=== PATIENT | female | born 1990 | race Caucasian/White ===

== ENCOUNTER 2022-10-03 09:15 | Emergency (ER) | payer OTHER, SELFPAY ==
[2022-10-03 09:27] VITALS: BP 123/81; PULSE 87; RESP 18; TEMP 37; O2SAT 99; BMI 25.0
--- NOTE | 2022-10-03 09:42 | ED_ITS ---
HPI - Female Genitourinary General Time Seen by Provider: 09:43 Date Seen: 10/03/22 Chief complaint: Vaginal Bleeding Stated complaint: 6 weeks preg. bleeding Time Seen by Provider: 10/03/22 09:38 Source: patient, family, RN notes reviewed and old records reviewed Mode of arrival: ambulatory Limitations: no limitations History of Present Illness HPI Narrative: Navya is a very pleasant female at approximately 6 weeks with LMP on August 17 who comes to the emergency room with the onset of vaginal bleeding at approximately 0400 hours this morning or 5 hours ago. Patient notes that she had some back pain that awoke her and when she went to the bathroom felt herself bleeding. She does describe this is more than spotting. She has not been lightheaded or had any chest pain or shortness of breath at this point. She now notes that she has cramping in her lower abdomen as well. She has no history of ectopic pregnancies or scarring in the fallopian tubes. She has not had recent fever but does report feeling chilled or cold more than normal lately. Patient did call OBGYN clinic and they directed her to come to the emergency. Related Data Allergies Allergy/AdvReac Type Severity Reaction Status Date / Time Sulfa (Sulfonamide Allergy Unknown Verified 10/03/22 09:27 Antibiotics) Review of Systems Status of ROS: Reports: 10 or more systems reviewed and unremarkable except as noted in History and below Narrative: Denies recent cough cold congestion or exposure to COVID Const: Reports: chills; Denies: fever ENMT: Denies: neck pain Cardio: Denies: chest pain, palpitations, swelling of feet/ankles or lightheadedness GI: Reports: abdominal pain; Denies: nausea, vomiting or diarrhea : Denies: painful urination Musculo: Reports: back pain; Denies: neck pain PFSH PFSH Social History Smoking Status: Never smoker Do you use any of these nicotine containing products: None Second hand tobacco smoke exposure: No How often do you have a drink containing alcohol: monthly or less How many standard drinks containing alcohol do you have on a typical day: 1 or 2 How often do you have six or more drinks on one occasion: Never AUDIT-C Alcohol total score: 1 Non-prescribed substance use: denies use service: No Exam Narrative: Exam Narrative: Alert and oriented. No acute distress. Clearly worried. External ears eyes nose clear. Mentation normal. Heart with regular rate and rhythm. Occasional additional systole ease with no compensatory pause. Suggest a PAC. Lungs are clear bilaterally. Abdomen is soft. There is some tenderness over the lower abdomen. Lower extremities without edema. Moving all extremities. Const: Vital Signs, click to edit/add: Vital Signs - 24 hr 10/03/22 09:27 Temperature 98.6 F Pulse Rate [Pulse Oximeter] 87 Respiratory Rate 18 Blood Pressure [Le ft Upper Arm] 123/81 Pulse Oximetry 99 Oxygen Delivery Me thod Room Air Documenting provider has reviewed patient's vital signs: yes Course Course Hospital Course: At this time will place IV, draw blood to include CBC, basic, TSH, quantitative hCG. Have ordered pelvic ultrasound as well. Reevaluation(s) Reevaluation #1: I have informed Navya and her that hCG is low at 60 for and that the ultrasound only shows a small fluid collection with absence of embryo or yolk sac. I did explain that this could be a very early but based on her LMP she should be at 6 weeks and 5 days and her hCG should be much higher. Vital Signs Vital signs: Initial Vital Signs Temperature 98.6 F 10/03/22 09:27 Temperature Source Temporal Artery Scan 10/03/22 09:27 Pulse Rate 87 10/03/22 09:27 Pulse Rhythm Regular 10/03/22 09:27 Respiratory Rate 18 10/03/22 09:27 Blood Pressure 123/81 10/03/22 09:27 Blood Pressure Mean 95 10/03/22 09:27 Blood Pressure Position Supine 10/03/22 09:27 Pulse Oximetry 99 10/03/22 09:27 Oxygen Delivery Method Room Air 10/03/22 09:27 Vital Signs Temperature 98.6 F 10/03/22 09:27 Pulse Rate 87 10/03/22 09:27 Respiratory Rate 18 10/03/22 09:27 Blood Pressure 123/81 10/03/22 09:27 Pulse Oximetry 99 10/03/22 09:27 Oxygen Delivery Method Room Air 10/03/22 09:27 Temperature 98.6 F 10/03/22 09:27 Pulse Rate 87 10/03/22 09:27 Respiratory Rate 18 10/03/22 09:27 Blood Pressure 123/81 10/03/22 09:27 Pulse Oximetry 99 10/03/22 09:27 Oxygen Delivery Method Room Air 10/03/22 09:27 MDM - Female Genitourinary MDM Narrative Medical decision making narrative: 1. Threatened miscarriage-at this time patient has low hCG as well as ultrasound results that do not indicate yolk sac or embryo. Suspect that this is ongoing miscarriage. Patient's vital signs stable and Rh factor positive. At this time will discharge a Babs to home. Suggested no use of tampons but pads only. Will need to return if she has significant bleeding, shortness of breath, lightheadedness or fever. Vital signs have remained stable with no evidence of hypotension or tachycardia. 2. [id number] with OBGYN clinic next ThursdayOctober [address] Jay Chen return to the ER as needed. Medical Records Attestation: I reviewed the patient's medical records. Lab Data Attestation: I reviewed the patient's lab results. Labs: Lab Results 10/03/22 Range/Units 10:06 WBC 8.77 (4.50-11.00) K/uL RBC 4.44 (4.00-5.20) m/uL Hgb 13.5 (12.0-16.0) gm/dL Hct 39.5 (33.0-51.0) % MCV 89 (80-100) fL MCH 30 (26-34) pg MCHC 34 (32-36) gm/dL RDW Coeff of Ronda 12.1 (11.5-15.5) % Plt Count 264 (140-440) K/uL Neut % (Auto) 69.4 (42.0-72.0) % Lymph % (Auto) 22.6 (20-44) % Sebastian % (Auto) 6.6 (0.0-11.0) % Eos % (Auto) 0.8 (0.0-7.0) % Baso % (Auto) 0.5 (0.0-3.0) % Neut # (Auto) 6.09 (1.7-7.0) K/uL Lymph # (Auto) 1.98 (0.90-2.90) K/uL Sebastian # (Auto) 0.60 (0.00-0.90) K/UL Eos # (Auto) 0.07 (0.00-0.50) K/uL Baso # (Auto) 0.04 (0.00-0.30) K/uL Sodium 138 (135-149) mmol/L Potassium 3.8 (3.6-5.1) mmol/L Chloride 106 (96-114) mmol/L Carbon Dioxide 24 (20-32) mmol/L BUN 13 (5-24) mg/dL Creatinine 0.7 (0.5-1.5) mg/dL Estimated Creat Clear 104.78 Estimated GFR 119 ml/min Glucose 97 (60-115) mg/dL Calcium 9.1 (8.4-10.6) mg/dL TSH 1.550 (0.270-4.200) uIU/mL HCG, Quant 68.85 mIU/mL Blood Type B Positive Imaging Data Pelvic ultrasound: Attestation: I have reviewed the pertinent imaging results. Radiologist's impression: The uterus is retroverted with an endometrial thickness of 14 millimeters. Within the endometrial cavity there is a fluid collection measuring 3 millimeters. Maternal right ovary measures 3.1 x 1.6 x 2.3 centimeters and is unremarkable. Maternal left ovary measures 4.3 x 1.8 x 2.7 centimeters and contains a 2.4 centimeter corpus luteum. IMPRESSION: 1. Small amount of fluid within the endometrial cavity measuring 3 millimeters. An early gestational sac is possible, however no embryo or yolk sac is seen. Correlation with serial quantitative beta HCG and follow-up ultrasound in 7-10 days suggested. 2. Maternal left ovarian corpus luteum measuring 2.4 centimeters. Discharge Plan Discharge Clinical Impression: Vaginal bleeding Patient Disposition: Home, Self-Care Condition: Unchanged Additional Instructions: Follow-up on ThursdayOctober 06 with your OBGYN. Please call today and let them know that you were in the emergency room and I spoke with Dr. Jay Chen's nurse. The phone number is [phone] Return to the emergency room for significant bleeding, shortness of breath, lightheadedness or fever. Follow Up/Referrals: Provider,Not a Local [Primary Care Provider] - Stand Alone Forms: [employer] Info Instructions
--- NOTE | 2022-10-03 09:51 | CRLHL7_ITS ---
For Patients: As a result of the Century Cures Act, medical imaging exams and procedure reports are released immediately into your electronic medical record. You may view this report before your referring provider. If you have questions, please contact your health care provider. INDICATION: , vaginal bleeding and cramping TECHNIQUE: Ultrasound OB pelvis transvaginal. Real-time hwang-scale imaging of the pelvis was performed. COMPARISON: None FINDINGS: The uterus is retroverted with an endometrial thickness of 14 millimeters. Within the endometrial cavity there is a fluid collection measuring 3 millimeters. Maternal right ovary measures 3.1 x 1.6 x 2.3 centimeters and is unremarkable. Maternal left ovary measures 4.3 x 1.8 x 2.7 centimeters and contains a 2.4 centimeter corpus luteum. IMPRESSION: 1. Small amount of fluid within the endometrial cavity measuring 3 millimeters. An early gestational sac is possible, however no embryo or yolk sac is seen. Correlation with serial quantitative beta HCG and follow-up ultrasound in 7-10 days suggested. 2. Maternal left ovarian corpus luteum measuring 2.4 centimeters. Dictated by Mika Garber MD @ 10/03/2022 11:26:28 AM (Electronically Signed)
[2022-10-03 10:14] LABS: Basophils Absolute Auto 0.04 K/uL (0.00-0.30); Basophils Percent Auto 0.5 % (0.0-3.0); Eosinophils Absolute Auto 0.07 K/uL (0.00-0.50); Eosinophils Percent Auto 0.8 % (0.0-7.0); Hematocrit 39.5 % (33.0-51.0); Hemoglobin* 13.5 gm/dL (12.0-16.0); Immature Granulocytes Abs Auto 0.01 K/uL (0.00-0.30); Immature Granulocytes Pct Auto 0.1 %; Lymphocytes Absolute Auto 1.98 K/uL (0.90-2.90); Lymphocytes Percent Auto 22.6 % (20-44); Mean Corpuscular HGB Conc 34 gm/dL (32-36); Mean Corpuscular Hemoglobin 30 pg (26-34); Mean Corpuscular Volume 89 fL (80-100); Monocytes Percent Auto 6.6 % (0.0-11.0); Neutrophils Absolute Auto 6.09 K/uL (1.7-7.0); Neutrophils Percent Auto 69.4 % (42.0-72.0); Platelet Count* 264 K/uL (140-440); RDW Coefficient of Variation % 12.1 % (11.5-15.5); Red Blood Count 4.44 m/uL (4.00-5.20); White Blood Count* 8.77 K/uL (4.50-11.00)
[2022-10-03 10:16] LABS: Slide Review Reflex No
[2022-10-03 10:29] LABS: Chloride* 106 mmol/L (96-114); Potassium* 3.8 mmol/L (3.6-5.1); Sodium* 138 mmol/L (135-149)
[2022-10-03 10:30] VITALS: BP 130/80; PULSE 78; RESP 16; O2SAT 98
[2022-10-03 10:31] LABS: Creatinine* 0.7 mg/dL (0.5-1.5); Est. Creatinine Clearance* 104.78; Estimated Glomerular Filt Rate 119 ml/min
[2022-10-03 10:32] LABS: Blood Urea Nitrogen* 13 mg/dL (5-24); Calcium* 9.1 mg/dL (8.4-10.6); Carbon Dioxide* 24 mmol/L (20-32); Glucose* 97 mg/dL (60-115)
[2022-10-03 10:49] LABS: HCG Quantitative* 68.85 mIU/mL
[2022-10-03 11:00] VITALS: BP 123/82; PULSE 83; RESP 16; O2SAT 98
[2022-10-03 11:30] VITALS: BP 127/77; PULSE 77; RESP 16; O2SAT 98
[2022-10-03 12:00] VITALS: BP 117/80; PULSE 85; RESP 16; O2SAT 98
== END 2022-10-03 12:09 | disposition home or self-care (01) ==
PROVIDERS: Emergency Provider Family Medicine
DX: N93.9 Abnormal uterine and vaginal bleeding, unspecified (principal)
CPT/HCPCS: 36415; 76817; 80048; 84443; 84702; 85025; 86900; 86901; 99283; 99284

== ENCOUNTER 2022-10-08 13:34 | Outpatient (CLI) | payer OTHER, SELFPAY | END 2022-10-08 13:35 | disposition home or self-care (01) | LOC: NFLDREF 15:22 | PROVIDERS: Visit Provider Advanced Practice Midwife | DX: O20.9 Hemorrhage in early pregnancy, unspecified (principal) | CPT/HCPCS: 84702 ==

== ENCOUNTER 2023-06-09 12:53 | Outpatient (CLI) | payer OTHER, SELFPAY ==
--- NOTE | 2023-06-09 13:00 | US_ITS ---
Patient: ORLANDO PLUMMER Facility:?[facility] Patient ID:?[id number] Site Patient ID:?[id number]. Site :?1990 Study:?US-OB Pelvis TV dating/viability-06/09/2023 2:01:21 PM Ordering Physician:AUREA Final Report: INDICATION: First trimester scan, establish dates. COMPARISON: None. TECHNIQUE: Real-time hwang-scale imaging of the pelvis was performed. FINDINGS: Sonographic imaging demonstrates a single living intrauterine gestation. The embryo demonstrates a regular cardiac rate measuring 180 beats per minute. The embryo`s crown-rump length measurement of 3.0 cm corresponds to a gestational age of 9 weeks 6 days with a sonographic due date of 01/06/2024. There is a normal-appearing yolk sac. There are no gross abnormalities noted within the embryo at this early state of development. The gestational sac has a normal appearance. There is a 3.3 x 1.2 x 3.0 cm perigestational hemorrhage. The amount of fluid within the sac appears appropriate for gestational age. The cervix is closed. The myometrium appears normal. The ovaries are of normal size. Corpus luteal cyst left ovary. There are no suspicious fluid collections noted in the cul-de-sac. IMPRESSION: Gestational age calculated at 9 weeks 6 days with a sonographic due date of 01/06/2024. Fundal subchorionic hemorrhage measuring 3.3 x 1.2 x 3.0 cm. Dictated by Adan Mena MD @ 06/10/2023 7:01:23 AM Signed by:?Adan Mena MD @06/10/2023 7:01:23 AM (Electronic Signature)
== END 2023-06-09 12:54 | disposition home or self-care (01) ==
LOC: US 12:53
PROVIDERS: Visit Provider Physician Assistant
DX: Z34.91 Encounter for supervision of normal pregnancy, unspecified, first trimester (principal); O20.9 Hemorrhage in early pregnancy, unspecified; Z3A.09 9 weeks gestation of pregnancy
CPT/HCPCS: 76817; 86703; 86706; 86803; 86850; 86900; 86901; 87086; 87340

== ENCOUNTER 2023-06-09 15:37 | Outpatient (CLI) | payer OTHER, SELFPAY | END 2023-06-09 15:38 | disposition home or self-care (01) | LOC: NFLDREF 06-19 11:59 | PROVIDERS: Visit Provider Advanced Practice Midwife | DX: Z34.91 Encounter for supervision of normal pregnancy, unspecified, first trimester (principal) | CPT/HCPCS: 86592; 86703; 86704; 86706; 86762; 86787; 86803; 86850; 86900; 86901; 87086; 87340 ==

== ENCOUNTER 2023-08-24 08:04 | Outpatient (CLI) | payer OTHER, SELFPAY ==
--- NOTE | 2023-08-24 08:15 | US_ITS ---
Patient: ORLANDO PLUMMER Facility:?[facility] Patient ID:?[id number] Site Patient ID:?[id number]. Site :?1990 Study:?US-OB Pelvis anatomy-08/24/2023 9:05:20 AM Ordering Physician:Gerda Fox Final Report: OB ULTRASOUND LMP: 04/05/2023. LUCY by LMP: 01/10/2024. GA: 20w, 1d. Fetus: Single. INDICATION: Encounter for supervision of normal . FINDINGS: position: Vertex, breech, multiple positions. Cervix: Visualized. Technique: Transabdominal. Length of closed cervix: 3.0 cm. Placenta/cord: Posterior. Technique: Transabdominal. Placenta tip to internal OS: 5.6cm. Umbilical Cord: 3-vessel cord. Placenta insertion: Marginal (within 2 cm of placenta edge). Amniotic Fluid: 3.4 cm SDP (greater than/equal to: 2- less than 8 cm). SURVEY: No gross anomalies identified. Cerebellum: Yes. Cisterna Magna: Yes. Nuchal Fold: Yes. Lateral Ventricle: Yes. CSP: Yes. Midline Falx: Yes. Choroid Plexus: Yes. Spine: Yes. Stomach: Yes. Abd Cord Insertion: Yes. Urinary Bladder: Yes. Kidneys: Yes. Diaphragm: Yes. Nose/lips: Yes. Orbital view: Yes. Profile: Yes. Upper Extremities: Yes. Lower Extremities: Yes. Hands: Yes. Feet: Yes. Four-Chamber Heart: Yes. LVOT: Yes. RVOT: Yes. 3VV: Yes. 3VTV: Yes. BPD: 4.8 cm. 20 w 3 d, 61%. HC: 17.6 cm. 20 w 1 d, 39%. AC: 16.1 cm. 21 w 1 d, 77%. FL: 3.1 cm. 19 w 4 d, 22%. FL/AC: 19.17%. HC/AC Ratio: 1.10. Heart rate: 157 beats per minute. age by this US: 20 w 5 d. LUCY by this US: 01/06/2024. EFW: 350 g. Weight: 12 oz. Percentile by LUCY: 59%. IMPRESSION: 1. No gross anomalies identified. 2. Marginal cord insertion. 3. age by this US: 20 w 5 d. Salvatore Dennis M.D. Body/Diagnostic Radiologist [email or web address] ANIL/prasad D& Transcribed: 2:01 p.mAmber parham/Dictated by: Salvatore Dennis MD @ 08/24/2023 12:16:00 PM Signed by:Zach Dennis MD @08/24/2023 2:17:49 PM (Electronic Signature)
== END 2023-08-24 08:05 | disposition home or self-care (01) ==
LOC: US 08:05
PROVIDERS: Visit Provider Advanced Practice Midwife
DX: Z34.92 Encounter for supervision of normal pregnancy, unspecified, second trimester (principal); Z3A.20 20 weeks gestation of pregnancy
CPT/HCPCS: 76805

== ENCOUNTER 2023-10-20 12:12 | Outpatient (CLI) | payer OTHER, SELFPAY ==
--- NOTE | 2023-10-20 12:15 | CRLHL7_ITS ---
For Patients: As a result of the Century Cures Act, medical imaging exams and procedure reports are released immediately into your electronic medical record. You may view this report before your referring provider. If you have questions, please contact your health care provider. INDICATION: Third trimester scan, evaluate growth. COMPARISON: 08/24/2023 TECHNIQUE: Real time hwang scale imaging of the fetus was performed. FINDINGS: Sonographic imaging demonstrates a single living intrauterine gestation. Fetus demonstrates a regular cardiac rate of 147 beats per minute. Fetus has a vertex position. The placenta lies posteriorly. Amniotic fluid volume appears normal and there is a single deepest vertical pocket: 5.9 cm. The estimated weight is 1352gm which lies at the 72nd %. On the prior OB ultrasound exam dated 08/24/2023 the estimated weight was at the 59th%. BPD 73rd percentile. HC 62nd percentile. AC 72nd percentile. FL 54th percentile. The HC/AC ratio measures 1.09 range (0.98-1.20). IMPRESSION: Sonographic gestational age 29 weeks 3 days and sonographic due date 01/02/2024. Sonographic age 8 days out of the clinical age. Estimated weight 72nd percentile. Abdominal circumference 72nd percentile. Dictated by Adan Mena MD @ 10/21/2023 11:00:59 AM (Electronically Signed)
== END 2023-10-20 12:13 | disposition home or self-care (01) ==
LOC: US 12:13
PROVIDERS: Visit Provider Obstetrics & Gynecology
DX: Z34.93 Encounter for supervision of normal pregnancy, unspecified, third trimester (principal); Z3A.29 29 weeks gestation of pregnancy
CPT/HCPCS: 76816; 87086

== ENCOUNTER 2023-10-20 14:16 | Outpatient (CLI) | payer OTHER, SELFPAY ==
--- OUTSIDE RECORDS SUMMARY | 2023-10-23 02:46 | XMS_ITS | Clinical Summary ---
Author Organization [employer] [facility] Address [place], [place] [address] Care Team Providers Care Coil Tier Name Role Phone Unavailable Primary Care Provider Unavailabl e Allergies Active Allergy Reactions Criticality Noted Date Comments Sulfa (Sulfonamide Antibiotics) Rash Medications Medication Sig Dispensed Refills Start Date End Date Status loratadine (CLARITIN) 10 mg tabletIndications:Katie oedema, initial encounter Take 1 tablet by mouth once daily. 15 tablet 2 09/22/2014 Active albuterol HFA (PROAIR HFA) 90 mcg/actuation inhalerIndications:Exe rcise induced bronchospasm Inhale 2 Puffs by mouth 4 times daily if needed. 1 Inhaler 0 07/24/2015 Active meclizine (ANTIVERT) 12.5 mg tabletIndications:Vest ibular migraine Take 1 tablet by mouth 3 times daily if needed for Vertigo or Motion Sickness. 15 tablet 0 12/06/2015 Active codeine-guaiFENesin (ROBITUSSIN AC) 10-100 mg/5 mL liquidIndications:Infl uenza-like illness,Cough Take 5-10 mL by mouth every 4 hours if needed for Cough. 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/11/2007 Other acne 10/11/2007 Resolved Problems Problem Noted Date Diagnosed Date Resolved Date Shortness of breath 10/30/2006 10/11/19 08 Other chest pain 10/30/2006 10/11/2007 Dysmenorrhea 10/30/2006 10/11/2007 Excessive or frequent menstruation 10/30/2006 10/11/2007 Immunizations Name Administration Dates Next Due DT (Age < 7 years) 08/09/2003 Hepatitis B (Peds) 03/06/2004,09/29/2003, 004 Human Papilloma Virus Vaccine 06/29/2012, 010,11/06/2008 MMR 08/09/2003,09/06/1992 Meningococcal Vaccine (Menactra) 10/31/2005 Tdap 11/06/2008 Family History Medical History Relation Name Comments Good Health Father Cancer-breast Maternal Grandmother diagno sed 2012 stage 3 Hypertension Maternal Grandmother Good Health Mother Diabetes Other maternal great grandpa Heart Disease Other mom's side --A SD - cousin, great uncle Asthma No Family History Cancer-colon No Family History Hyperlipidemia No Family History Relation Name Status Comments Father Maternal Grandmother Mother Other Social History Tobacco Use Types Packs/Day Years Used Date Smoking Tobacco: Never Smokeless Tobacco: Never Tobacco Cessation:Counseling Given: Yes Alcohol Use Standard Drinks/Week Comments Yes 0 (1 standard drink = 0.6 oz pur e alcohol) occasionally Sex and Gender Information Value Date Recorded Sex Assigned at Not on file Gender Identity Not on file Sexual Orientation Not on file Obstetrics History Last Filed Vital Signs Vital Sign Reading Time Taken Comments Blood Pressure 117/75 03/24/2019 8:25 AM DIRECTOR OF PERIOPERATIVE SERVICES Pulse 80 03/24/2019 8:25 AM DIRECTOR OF PERIOPERATIVE SERVICES Temperature 36.7 ??C (98 ??F) 03/24/2019 8:25 AM DIRECTOR OF PERIOPERATIVE SERVICES Respiratory Rate - - Oxygen Saturation 98% 03/24/2019 8:25 AM DIRECTOR OF PERIOPERATIVE SERVICES Inhaled Oxygen Concentration - - Weight 64.5 kg (142 lb 3.2 oz) 03/24/2019 8:25 A M DIRECTOR OF PERIOPERATIVE SERVICES Height 165.1 cm (5' 5) 03/24/2019 8:25 AM DIRECTOR OF PERIOPERATIVE SERVICES Body Mass Index 23.66 03/24/2019 8:25 AM DIRECTOR OF PERIOPERATIVE SERVICES Plan of Treatment Health Maintenance Due Date Last Done Comments Depression screening for age 12+ 2003 HIV for age 15-65 2006 Hepatitis C screening for ag e 18-79 2009 Tetanus booster 11/06/2018 11/06/2008 BMI (ht and wt on same day) for age 18+ 03/24/2020 03/24/2019, 03/06/2016, 12/06/2015 Pap test for age 21-65 08/01/2022 0, 12/09/2013, 06/29/2012 COVID-19 vaccine series ( season) 2022 Influenza for age 9-49 12/06/2023 Tdap Completed 11/06/2008 Pneumococcal series for age 6-64 Aged Out No longer eligible b ased on patient's age to complete this topic Procedures Procedure Name Priority Date/Time Associated Diagnosis Comments CAM SPECIALIST THIN PREP PAP SCREEN IMAGED Routine 08/02/2019 4:15 PM CDT from Last 3 Months or Most Recently Relevant to Health Maintenance Results * CAM SPECIALIST THIN PREP PAP SCREEN IMAGED (08/02/2019 4:15 PM CDT) Case Report Gynecologic Cytology Report ? Case: [id number] ? Authorizing Provider: ??Laura Montez PA-C ?Collected: ? 08/02/2019 1615 ? Ordering Location: ? [facility] ?Received: ?08/04/2019 0849 ? First Screen: ?Romina Baxter ? Specimen: ?CAM SPECIALIST ThinPrep Vial Screening, Cervical/Vaginal ? 08/04/2019 5:55 PM CDT [facility] ENTRAL LABORATORY INTERPRETATION/ RESULT NEGATIVE FOR INTRAEPITHELIAL LESION OR MALIGNANCY (NIL) (none) 08/04/2019 5:55 PM CDT [facility] IMEN ADEQUACY Satisfactory for evaluation No endocervical component seen in a patient Excessive cytolysis/autolys is 08/04/2019 5:55 PM CDT [facility] HPV REQUEST HPV if ASCUS 08/04/2019 5:55 PM CDT [facility] Date of LMP 06/06/2019 08/04/2019 5:55 PM CDT [facility] Last Pap Result 0 5:55 PM CDT [facility] Comment:neg Menstrual Status 08/04/2019 5:55 PM CDT [facility] Additional Information 08/04/2019 5:55 PM CDT [facility] Comment: Interpreted at [facility] - [address], [place] [address] Automated Review Successful 08/04/2019 5:55 PM CDT [facility] Comment:Specimen processed s uccessfully by automated professor of business administration device, ThinPrep Imaging System, [employer] Note The pap test is a screening technique, not a diagnostic procedure. It is used primarily to screen for squamous cancers and precursor lesions. Published studies have shown that it is subject to both false negative and false positive results. The pap test should not be used as the sole means to diagnose or exclude pre-malignant and malignant lesions. 08/04/2019 5:55 PM CDT [facility] Other (Cervical/Vagina l) 08/02/2019 4:15 PM CDT 08/04/2019 8:49 AM CDT July Melida WAN PATHOLOGY/CYTOLOGY [facility] [address] [place] [address], [place] from Last 3 Months or Most Recently Relevant to Health Maintenance
== END 2023-10-20 14:17 | disposition home or self-care (01) ==
LOC: NFLDREF 10-23 02:44
PROVIDERS: Visit Provider Advanced Practice Midwife
DX: Z34.83 Encounter for supervision of other normal pregnancy, third trimester (principal)
CPT/HCPCS: 86592; 87086

== ENCOUNTER 2023-11-03 10:15 | Outpatient (CLI) | payer OTHER, SELFPAY ==
--- OUTSIDE RECORDS SUMMARY | 2023-11-04 10:36 | XMS_ITS | Clinical Summary ---
Author Organization [employer] [facility] [employer] Address [place], [place] [address] Care Team Providers Care Drain Tiler Name Role Phone Unavailable Primary Care Provider [...] Comments Blood Pressure 117/75 03/24/2019 8:25 AM TOLL LINE MECHANIC Pulse 80 03/24/2019 8:25 AM TOLL LINE MECHANIC Temperature 36.7 ??C (98 ??F) 03/24/2019 8:25 AM TOLL LINE MECHANIC Respiratory Rate - - Oxygen Saturation 98% 03/24/2019 8:25 AM TOLL LINE MECHANIC Inhaled Oxygen Concentration - - Weight 64.5 kg (142 lb 3.2 oz) 03/24/2019 8:25 A M TOLL LINE MECHANIC Height 165.1 cm (5' 5) 03/24/2019 8:25 AM TOLL LINE MECHANIC Body Mass Index 23.66 03/24/2019 8:25 AM TOLL LINE MECHANIC Plan of Treatment Health Maintenance Due Date [...] Procedure Name Priority Date/Time Associated Diagnosis Comments MOLDER PUNCH THIN PREP PAP SCREEN IMAGED Routine 08/02/2019 4:15 PM CDT from Last 3 Months or Most Recently Relevant to Health Maintenance Results * MOLDER PUNCH THIN PREP PAP SCREEN IMAGED (08/02/2019 4:15 PM CDT) Case Report Gynecologic Cytology Report ? Case: [id number] ? Authorizing Provider: ??Laura Montez PA-C ?Collected: ? 08/02/2019 1615 ? Ordering Location: ? [facility] ?Received: ?08/04/2019 0849 ? First Screen: ?Romina Baxter ? Specimen: ?MOLDER PUNCH ThinPrep Vial Screening, Cervical/Vaginal ? 08/04/2019 5:55 PM CDT [facility]-C ENTRAL LABORATORY INTERPRETATION/ RESULT NEGATIVE FOR INTRAEPITHELIAL LESION OR MALIGNANCY (NIL) (none) 08/04/2019 5:55 PM CDT [facility] IMEN ADEQUACY Satisfactory for evaluation No endocervical component seen in a patient Excessive cytolysis/autolys is 08/04/2019 5:55 PM CDT [facility] HPV REQUEST HPV if ASCUS 08/04/2019 5:55 PM CDT [facility] Date of LMP 06/06/2019 08/04/2019 5:55 PM CDT [facility] Last Pap Result 0 5:55 PM CDT [facility] Comment:neg Menstrual Status 08/04/2019 5:55 PM CDT [facility] Additional Information 08/04/2019 5:55 PM CDT [facility] Comment: Interpreted at [facility] - [address], [place] [address] Automated Review Successful 08/04/2019 5:55 PM CDT [facility] Comment:Specimen processed s uccessfully by automated surgical forceps fabricator device, ThinPrep Imaging System, [employer] Note The pap test is a [...] and malignant lesions. 08/04/2019 5:55 PM CDT [facility] Other (Cervical/Vagina l) 08/02/2019 4:15 PM CDT 08/04/2019 8:49 AM CDT July Melida WAN PATHOLOGY/CYTOLOGY [facility] [address] [place] [address], [place] from Last 3 Months or Most Recently Relevant to Health Maintenance
== END 2023-11-03 10:16 | disposition home or self-care (01) ==
LOC: NFLDREF 11-04 10:34
PROVIDERS: Visit Provider Advanced Practice Midwife
DX: Z34.83 Encounter for supervision of other normal pregnancy, third trimester (principal)
CPT/HCPCS: 87086

== ENCOUNTER 2023-11-17 09:17 | Outpatient (CLI) | payer OTHER, SELFPAY ==
--- NOTE | 2023-11-17 09:15 | CRLHL7_ITS ---
For Patients: As a result of the Century Cures Act, medical imaging exams and procedure reports are released immediately into your electronic medical record. You may view this report before your referring provider. If you have questions, please contact your health care provider. INDICATION: GROWTH, MALFORMATION OF THE PLACENTA COMPARISON: 10.20.23 TECHNIQUE: Real time hwang scale imaging of the fetus was performed. FINDINGS: Sonographic imaging demonstrates a single living intrauterine gestation. Fetus demonstrates a regular cardiac rate of 154 beats per minute. Fetus has a patricio breech position. The placenta lies posteriorly. Amniotic fluid volume appears normal and there is a single deepest vertical pocket: 5.4 cm. The estimated weight is 2240gm which lies at the 81st %. On the prior OB ultrasound exam dated 10/20/2023 the estimated weight was at the 72nd%. BPD 65th percentile. HC 47th percentile. AC greater than 97th percentile. FL 11th percentile. The HC/AC ratio measures 0.97 range (0.96-1.11). Increased CSF within the posterior fossa may be present. IMPRESSION: Sonographic gestational age 33 weeks 1 day and sonographic due date of 01/04/2024. Sonographic age 6 days ahead of the clinical age. Estimated weight 81st percentile. Abdominal circumference greater than 97th percentile. Increased CSF within the posterior fossa is suspected. Maternal medicine consult suggested. Dictated by Adan Mena MD @ 11/17/2023 10:01:43 AM (Electronically Signed)
--- OUTSIDE RECORDS SUMMARY | 2023-11-17 09:19 | XMS_ITS | Clinical Summary ---
Author Organization [facility] Address [place], [place] [address] Care Team Providers Care Produce Sorter Name Role Phone Unavailable Primary Care Provider [...] Comments Blood Pressure 117/75 03/24/2019 8:25 AM FRAME CHANGER Pulse 80 03/24/2019 8:25 AM FRAME CHANGER Temperature 36.7 ??C (98 ??F) 03/24/2019 8:25 AM FRAME CHANGER Respiratory Rate - - Oxygen Saturation 98% 03/24/2019 8:25 AM FRAME CHANGER Inhaled Oxygen Concentration - - Weight 64.5 kg (142 lb 3.2 oz) 03/24/2019 8:25 A M FRAME CHANGER Height 165.1 cm (5' 5) 03/24/2019 8:25 AM FRAME CHANGER Body Mass Index 23.66 03/24/2019 8:25 AM FRAME CHANGER Plan of Treatment Health Maintenance Due Date [...] Procedure Name Priority Date/Time Associated Diagnosis Comments ANIMAL PATHOLOGY TEACHER THIN PREP PAP SCREEN IMAGED Routine 08/02/2019 4:15 PM CDT from Last 3 Months or Most Recently Relevant to Health Maintenance Results * ANIMAL PATHOLOGY TEACHER THIN PREP PAP SCREEN IMAGED (08/02/2019 4:15 PM CDT) Case Report Gynecologic Cytology Report ? Case: [id number] ? Authorizing Provider: ??Laura Montez PA-C ?Collected: ? 08/02/2019 1615 ? Ordering Location: ? [facility] ?Received: ?08/04/2019 0849 ? First Screen: ?Romina Baxter ? Specimen: ?ANIMAL PATHOLOGY TEACHER ThinPrep Vial Screening, Cervical/Vaginal ? 08/04/2019 5:55 PM CDT [facility] INTERPRETATION/ RESULT NEGATIVE FOR INTRAEPITHELIAL LESION OR MALIGNANCY (NIL) (none) 08/04/2019 5:55 PM CDT [facility] IMEN ADEQUACY Satisfactory for evaluation No endocervical component seen in a patient Excessive cytolysis/autolys is 08/04/2019 5:55 PM CDT [facility] HPV REQUEST HPV if ASCUS 08/04/2019 5:55 PM CDT [facility] Date of LMP 06/06/2019 08/04/2019 5:55 PM CDT [facility] Last Pap Result 0 5:55 PM CDT [facility] Comment:neg Menstrual Status 08/04/2019 5:55 PM CDT [facility] Additional Information 08/04/2019 5:55 PM CDT [facility] Comment: Interpreted at [facility] - [address], [place] [address] Automated Review Successful 08/04/2019 5:55 PM CDT [facility] Comment:Specimen processed s uccessfully by automated automatic lathe setter device, ThinPrep Imaging System, [employer] Note The pap test is a [...] and malignant lesions. 08/04/2019 5:55 PM CDT [facility] Other (Cervical/Vagina l) 08/02/2019 4:15 PM CDT 08/04/2019 8:49 AM CDT July Melida WAN PATHOLOGY/CYTOLOGY [facility] [address] [place] [address], [place] from Last 3 Months or Most Recently Relevant to Health Maintenance
== END 2023-11-17 09:18 | disposition home or self-care (01) ==
LOC: US 09:17
PROVIDERS: Visit Provider Advanced Practice Midwife
DX: O43.193 Other malformation of placenta, third trimester (principal); Z3A.33 33 weeks gestation of pregnancy
CPT/HCPCS: 76816

== ENCOUNTER 2023-12-15 09:16 | Outpatient (CLI) | payer BC, SELFPAY ==
--- NOTE | 2023-12-15 09:23 | CRLHL7_ITS ---
For Patients: As a result of the Century Cures Act, medical imaging exams and procedure reports are released immediately into your electronic medical record. You may view this report before your referring provider. If you have questions, please contact your health care provider. INDICATION: Third trimester growth and BPP TECHNIQUE: Real time hwang scale imaging of the fetus was performed. COMPARISON: 11/17/2023 FINDINGS: Sonographic imaging demonstrates a single living intrauterine gestation. Fetus demonstrates a regular cardiac rate of 150 beats per minute. Fetus has a vertex position. The placenta lies posteriorly. Amniotic fluid volume appears normal and there is a single deepest pocket of 7.7 cm. The estimated weight is 3350gm which lies at the 90th %. On the prior OB ultrasound dated 11/17/2023 the estimated weight was at the 81st percentile. BPD 86th percentile. HC is 78th percentile. AC 95th percentile. FL 77th percentile. The fetus was active and demonstrated normal breathing movements. There was normal flexion and extension of the trunk and extremities. IMPRESSION: Normal biophysical profile score 8/8. Sonographic gestational age 38 weeks 0 days and a sonographic due date 12/29/2023. Sonographic age 12 days ahead of the clinical age. Estimated weight 90th percentile. Abdominal circumference 95th percentile. Dictated by Adan Mena MD @ 12/15/2023 10:45:23 AM (Electronically Signed)
--- OUTSIDE RECORDS SUMMARY | 2023-12-15 09:25 | XMS_ITS | Encounter Summary ---
Author Organization [facility] Address [address] [place] [address]. [place] [address] Care Team Providers Care Auto Winder Name Role Phone Jeri Liu APRN, CNM Primary Care Provider [phone]- [phone] Reason for Referral * Diagnostic Imaging Ultrasound (Routine) - Pending Review Specialty Diagnoses / Procedures Referred By Contac t Referred To Contact Radiology. Diagnoses related condition, antepartum Procedures [facility] US Comprehensive Single Jeri Liu APRN CNM [facility] [address] [place] [address] Referral ID Status Reason Start Date Expiration Date V isits Requested Visits Authorized [id number] Pending Review 11/17/2023 11/16/2024 1 1 * Consultation (Routine: Next available opening) - Pending Review Specialty Diagnoses / Procedures Referred By Contac t Referred To Contact Diagnoses related condition, antepartum Jeri Liu APRN CNM [facility] [address] [place] [address] [facility] [address] [place] [address] Referral ID Status Reason Start Date Expiration Date V isits Requested Visits Authorized [id number] Pending Review 11/17/2023 11/16/2024 1 1 Question Answer Preferred Location: [facility] [place] LUCY 01/10/2024 Ultrasound Comprehensive US (>than 18 weeks GA) US PROC NONE MFM Issue OTHER (enter details in Comments) - increased CSF w/in posterior fossa MFM MD Consultation (unrelated to Ultrasound findings): Yes Inflammatory Bowel Disease Clinic: Joint MFM and GI Consultation: No Chronic Kidney Disease: Joint MFM and Nephrology Consultation No Cardio-Obstetrics: Joint MFM and Cardiology Consultation No fax [facility] - Jeri Liu - Additional Information: no consult needed per SF Comments There is no height or weight on file to calculate BMI. >> Patient may proceed with recommendations for further testing as directed by the Maternal Medicine Specialist >> >> If requesting Echo: MFM will determine appropriate location for exam due to indication. Please be aware that coverage of these services is subject to the terms and limitations of your health insurance plan. Call member services at your health plan with any benefit or coverage questions. Encounter Details Date Type Department Care Team (Latest Contact Info) Description 11/17/2023 Transcribe Orders [facility] [place] [address] [place] [id number] Jeri Liu APRN CNM [address] [address] related condition, antepartum (Primary Dx) Social History Tobacco Use Types Packs/Day Years Used Date Smoking Tobacco: Never Assessed Estimated Date of Delivery Comme nts Yes 01/10/2024 Based on last me nstrual period of 04/05/2023 Sex and Gender Information Value Date Recorded Sex Assigned at Not on file Gender Identity Not on file Sexual Orientation Not on file documented as of this encounter Plan of Treatment Scheduled Referrals Name Type Priority Associated Diagnoses Orde r Schedule [facility]tr Referral - Referral Routine: Next available opening related condition, antepartum Expected: 11/17/2023 (Approximate), Expires: 05/15/2024 documented as of this encounter Results * [facility] US Comprehensive Single (11/18/2023 12:46 PM CDT) Anatomical Region Laterality Modality Ultrasound 11/18/2023 11:4 2 AM CDT Impressions 11/18/2023 1:31 PM CDT IMPRESSION ----- 1. Mcclellan at 32w 3d gestational age. 2. Previously noted marginal cord insertion could not be adequately assessed today. 3. No anomalies commonly detected by ultrasound were identified in the detailed anatomic survey within the limits of ultrasound, however some views were suboptimal, as described above. Specifically, the posterior fossa of the brain appeared within normal limits. 4. Growth parameters and estimated weight were consistent with gestational age predicted by assigned LUCY. 5. The amniotic fluid volume appeared normal. Narrative 11/18/2023 1:31 PM CDT ?Comprehensive ----- Pat. Name: ORLANDO VARGAS ? Study Date: ??11/18/2023 11:42am Pat. NO: ??[id number] ?Referring ??MD: JERI LIU Site: ? [employer] Supervisor: Gini Joiner RDMS : ??1990 ?Age: ?? 33 ----- INDICATION ----- Enlarged cisterna magna and marginal cord insertion on outside ultrasound. METHOD ----- Transabdominal ultrasound examination. View: Suboptimal view: limited by late gestational age. Suboptimal view: limited by position ----- Mcclellan . Number of fetuses: 1 DATING ----- ? Date ?Details ?Gest. age ?LUCY LMP ?04/05/2023 ? 32 w + 3 d ? 01/10/2024 U/S ? 11/18/2023 ? based upon AC, BPD, Femur, HC ?33 w + 5 d ? 01/01/2024 Assigned dating ?based on the LMP, selected on 11/18/2023 ? 32 w + 3 d ? 01/10/2024 GENERAL EVALUATION ----- Cardiac activity present. FHR 153 bpm. movements: present. Presentation: cephalic Placenta: Posterior, No Previa, > 2 cm from internal os Umbilical cord: 3 vessel cord Amniotic fluid: Amount of AF: normal. MVP 4.6 cm BIOMETRY ----- BPD ? 81.7 ?mm ? 32w 6d ?Hadlock OFD ? 110.7 ?mm ? 33w 2d ? Nicolaides HC ? 308.1 ?mm ? 34w 3d ? Hadlock Cerebellum tr ?41.0 ?mm ? 35w 0d ? Nicolaides AC ? 315.2 ?mm ? 35w 3d ?99% ?Hadlock Femur ?62.4 ?mm ? 32w 2d ? Hadlock Humerus ? 54.8 ? mm ?31w 6d ?Andres Weight Calculation: EFW ?2,382 ?g ?89% ? Hadlock EFW (lb,oz) ?5 lb 4 ?oz EFW by ? Hadlock ([id number]) Head / Face / Neck Biometry: Spinning Supervisor ?5.4 ? mm CM ? 9.8 ? mm Nasal bone ? 12.8 ?mm ANATOMY ----- The following structures appear normal: Head / Neck ? Cranium. Head size. Head shape. Lateral ventricles. Choroid plexus. Midline falx. Cavum septi pellucidi. Cerebellum. Cisterna magna. ? Parenchyma. Thalami. Vermis. ? Neck. Face ? Lips. Nose. Orbits. Lens. Heart / Thorax ?4-chamber view. LVOT view. 3- vessel view. 3-prupdg-xlbwvnt view. Situs. Aortic arch view. Bicaval view. Superior vena cava. Inferior vena cava. ? Cardiac position. Cardiac size. Cardiac rhythm. ? Right lung. Left lung. Diaphragm. Abdomen ? Abdom. wall. Cord insertion. Stomach. Kidneys. Bladder. Liver. Bowel. Genitals. Spine ?Cervical spine. Thoracic spine. Lumbar spine. Sacral spine. Extremities / Skeleton ?Arms. Right arm. Right hand. Left arm. Left hand. Legs. Right leg. Right foot. Left leg. The following structures could not be adequately visualized: Face ? Profile. Maxilla. Mandible. Heart / Thorax ?RVOT view. Ductal arch view. Extremities / Skeleton ?Left foot. sex: male. MATERNAL STRUCTURES ----- Cervix ?Suboptimal Right Ovary ?Not examined Left Ovary ?Not examined RECOMMENDATION ----- Thank-you for referring your patient for ultrasound assessment. I discussed the findings on today's ultrasound with the patient. I reviewed the limitations of ultrasound both in detecting aneuploidy and structural abnormalities. Ultrasound, when views completed, can routinely detect 80-90% of structural abnormalities. She had low risk cell free DNA for genetic screening this . We discussed that on our assessment the neuroanatomy appears within normal limits. We discussed not all abnormalities can be seen on ultrasound, however, within that limitation there were no concerns related to the brain. Follow-up is scheduled here in three weeks to reassess anatomy that was suboptimally seen today. Return to primary provider for continued care. If you have questions regarding today's evaluation or if we can be of further service, please contact the [facility]. anomalies may be present but not detected I spent a total of 15 minutes on the date of this encounter including preparing to see the patient (reviewing medical records/tests), counseling and discussing the plan of care, documenting the visit in the electronic medical record, and communicating with other health health care analyst and/or care coordination. Procedure Note Dunia Salas MD - 11/18/2023 Comprehensive ----- Pat. Name: ORLANDO VARGAS Study Date: 11/18/2023 11:42am Pat. NO: [id number] Referring MD: JERI LIU Site: [employer] Supervisor: Gini Joiner RDMS : 1990 Age: 33 ----- INDICATION ----- Enlarged cisterna magna and marginal cord insertion on outsideultrasound. METHOD ----- Transabdominal ultrasound examination. View: Suboptimal view: limited bylate gestational age. Suboptimal view: limited by position ----- Mcclellan . Number of fetuses: 1 DATING ----- DateDetailsGest. age LUCY LMP w + 3 d 01/10/2024 U/S 11/18/2023ased upon AC, BPD, Femur, HC33 w + 5 d 01/01/2024 Assigned dating based on the LMP, selected on w + 3 d 01/10/2024 GENERAL EVALUATION ----- Cardiac activity present. FHR 153 bpm. movements: present.Presentation: cephalic Placenta: Posterior, No Previa, > 2 cm from internal os Umbilical cord: 3 vessel cord Amniotic fluid: Amount of AF: normal. MVP 4.6 cm BIOMETRY ----- BPD 81.7mm 32w 6dHadlock OFD 110.7mm 33w 2dNicolaides HC 308.1mm 34w 3dHadlock Cerebellum tr 41.0mm 35w 0dNicolaides AC 315.2mm 35w 3d 99%Hadlock Femur 62.4mm 32w 2dHadlock Humerus 54.8mm 31w 6dJeanty Weight Calculation: EFW 2,382g 89%Hadlock EFW (lb,oz) 5 lb 4oz EFW by Hadlock([id number]) Head / Face / Neck Biometry: Spinning Supervisor 5.4mm CM 9.8mm Nasal bone 12.8mm ANATOMY ----- The following structures appear normal: Head / Neck Cranium. Head size. Head shape.Lateral ventricles. Choroid plexus. Midline falx. Cavum septi pellucidi.Cerebellum. Cisterna magna. Parenchyma. Thalami. Vermis. Neck. Face Lips. Nose. Orbits. Lens. Heart / Thorax 4-chamber view. LVOT view. 3-vesselview. 8-eulkyz-hvfmkny view. Situs. Aortic arch view. Bicaval view.Superior vena cava. Inferior vena cava. Cardiac position. Cardiac size.Cardiac rhythm. Right lung. Left lung.Diaphragm. Abdomen Abdom. wall. Cord insertion. Stomach.Kidneys. Bladder. Liver. Bowel. Genitals. Spine Cervical spine. Thoracic spine.Lumbar spine. Sacral spine. Extremities / Skeleton Arms. Right arm. Right hand. Left arm.Left hand. Legs. Right leg. Right foot. Left leg. The following structures could not be adequately visualized: Face Profile. Maxilla. Mandible. Heart / Thorax RVOT view. Ductal arch view. Extremities / Skeleton Left foot. sex: male. MATERNAL STRUCTURES ----- Cervix Suboptimal Right Ovary Not examined Left Ovary Not examined RECOMMENDATION ----- Thank-you for referring your patient for ultrasound assessment. I discussed the findings on today's ultrasound with the patient. Ireviewed the limitations of ultrasound both in detecting aneuploidy andstructural abnormalities. Ultrasound, when views completed, can routinely detect 80-90% of structuralabnormalities. She had low risk cell free DNA for genetic screeningthis . We discussed that on our assessment the neuroanatomy appears withinnormal limits. We discussed not all abnormalities can be seen onultrasound, however, within that limitation there were no concerns related to the brain.Follow-up is scheduled here in three weeks to reassess anatomy that wassuboptimally seen today. Return to primary provider for continued care. If you have questions regarding today's evaluation or if we can be offurther service, please contact the [facility]. anomalies may be present but not detected I spent a total of 15 minutes on the date of this encounter includingpreparing to see the patient (reviewing medical records/tests), counselingand discussing the plan of care, documenting the visit in the electronic medical record, andcommunicating with other health health care analyst and/or carecoordination. IMPRESSION ----- 1. Mcclellan at 32w 3d gestational age. 2. Previously noted marginal cord insertion could not be adequatelyassessed today. 3. No anomalies commonly detected by ultrasound were identified inthe detailed anatomic survey within the limits of prenatalultrasound, however some views were suboptimal, as described above. Specifically, the posterior fossa ofthe brain appeared within normal limits. 4. Growth parameters and estimated weight were consistent withgestational age predicted by assigned LUCY. 5. The amniotic fluid volume appeared normal. Jeri Liu APRN, CNM [facility] US ORDERAB LES documented in this encounter Visit Diagnoses Diagnosis related condition, antepartum- Primary documented in this encounter Care Teams Auto Winder Relationship Specialty Start Date End Date Jeri Liu APRN CNM [address] [address] PCP - General 11/17/23 documented as of this encounter
--- OUTSIDE RECORDS SUMMARY | 2023-12-15 09:25 | XMS_ITS | Encounter Summary ---
Author Organization [facility] Address [address] [place] [address]. [place] [address] Care Team Providers Care Skull Grinder Name Role Phone Gerda Liu APRN [facility] Primary Care Provider [phone]- [phone] Encounter Details Date Type Department Care Team (Latest Contact Info) Description 11/18/2023 Travel Social History Tobacco Use Types Packs/Day Years Used Date Smoking Tobacco: Never Assessed Estimated Date of Delivery Comme nts Yes 01/10/2024 Based on last me nstrual period of 04/05/2023 Sex and Gender Information Value Date Recorded Sex Assigned at Not on file Gender Identity Not on file Sexual Orientation Not on file documented as of this encounter Plan of Treatment Not on file documented as of this encounter Visit Diagnoses Not on filedocumented in this encounter Care Teams Skull Grinder Relationship Specialty Start Date End Date Gerda Liu APRN CNM [facility] [address] [place] [address] PCP - General 11/17/23 documented as of this encounter
--- OUTSIDE RECORDS SUMMARY | 2023-12-15 09:25 | XMS_ITS | Encounter Summary ---
Author Organization [facility] Address [address] [place] [address]. [place] [address] Care Team Providers Care Educational Technologist Name Role Phone Unavailable Primary Care Provider Unavailabl e Encounter Details Date Type Department Care Team (Late st Contact Info) Description 05/28/2008 4:15 PM [facility] [address] [place] [id number] Bunny Hernández MD [address] [place], [place] [id number] Social History Tobacco Use Types Packs/Day Years [...]
--- OUTSIDE RECORDS SUMMARY | 2023-12-15 09:25 | XMS_ITS | Encounter Summary ---
Author Organization [facility] Address [address] [place] [address]. [place] [address] Care Team Providers Care Emergency Vehicle Operator Name Role Phone AlexaJeri ANNAMARIA [facility] Primary Care Provider [phone]- [phone] Reason for Referral * Diagnostic Imaging Ultrasound (Routine) - Pending Review Specialty Diagnoses / Procedures Referred By Contac t Referred To Contact Radiology. Diagnoses Encounter for follow-up ultrasound of anatomy Procedures [facility] US Comprehensive Single Souleymane/Dunia Ruano MD [address] [place] [id number] Referral ID Status Reason Start Date Expiration Date V isits Requested Visits Authorized [id number] Pending Review 11/18/2023 11/17/2024 1 1 Reason for Visit * Diagnostic Imaging Ultrasound (Routine) - Pending Review Specialty Diagnoses / Procedures Referred By Contac t Referred To Contact Radiology. Diagnoses Encounter for follow-up ultrasound of anatomy Procedures [facility] US Jeny Comer/Dunia Ruano MD [address] [address] Referral ID Status Reason Start Date Expiration Date V isits Requested Visits Authorized [id number] Pending Review 11/18/2023 11/17/2024 1 1 Encounter Details Date Type Department Care Team (Latest Contact Info) Description 12/09/2023 10:11 AM CDT - 12/09/2023 11:59 PM CDT Hospital Encounter [facility] Maternal Medicine [facility] [address] [facility] [address] [place] [address] Jannet Marmolejo MD [address] [facility] [address] [place] [address] Encounter for follow-up ultrasound of anatomy Discharge Disposition: Home or Self Care Social History Tobacco Use Types Packs/Day Years [...] on file documented as of this encounter Procedures Procedure Name Priority Date/Time Associated Diagnosis Comments [facility] US COMPREHENSIVE SINGLE F/U Routine 12/09/2023 11:03 AM CDT Encounter for follow-up ultrasound of anatomy documented in this encounter Results * [facility] US Comprehensive Single F/U (12/09/2023 11:03 AM CDT) Anatomical Region Laterality Modality Ultrasound 12/09/2023 10:1 9 AM CDT Impressions 12/09/2023 12:56 PM CDT IMPRESSION ----- 1. Mcclellan at 35w 3d gestational age. 2. Due to advanced gestational age and positive some anatomy remains suboptimally visualized. No anomalies commonly detected by ultrasound were identified within the limits of ultrasound. 3. Growth parameters and estimated weight were at the 95th% for gestational age. 4. The amniotic fluid volume appeared normal. Narrative 12/09/2023 12:56 PM CDT ?Comp Follow Up ----- Pat. Name: ORLANDO VARGAS ? Study Date: ??12/09/2023 10:19am Pat. NO: ??[id number] ?Referring ??MD: JERI LIU Site: ? Residential Subcontractor: Gini Joiner RDMS : ??1990 ?Age: ?? 33 ----- INDICATION ----- Follow up suboptimal anatomy. METHOD ----- Transabdominal ultrasound examination. View: Suboptimal view: limited by position. Suboptimal view: limited by late gestational age. ----- Mcclellan . Number of fetuses: 1 DATING ----- ? Date ?Details ?Gest. age ?LUCY LMP ?04/05/2023 ? 35 w + 3 d ? 01/10/2024 Previous U/S ?06/09/2023 ?GA, GA 9 w + 6 d ? 36 w + 0 d ? 01/06/2024 U/S ? 12/09/2023 ?based upon AC, BPD, Femur, HC ? 36 w + 4 d ? 01/02/2024 Assigned dating ?based on the LMP, selected on 12/09/2023 ? 35 w + 3 d ? 01/10/2024 GENERAL EVALUATION ----- Cardiac activity present. FHR 159 bpm. movements: present. Presentation: cephalic Placenta: Posterior, No Previa, > 2 cm from internal os Umbilical cord: 3 vessel cord Amniotic fluid: Amount of AF: normal. MVP 4.3 cm BIOMETRY ----- BPD ? 88.7 ? mm ?35w 6d ?Hadlock OFD ? 116.1 ?mm ? -/- ?Nicolaides HC ? 327.6 ?mm ? 37w 1d ?Hadlock Cerebellum tr ?49.1 ?mm ? -/- ?Nicolaides AC ? 358.3 ?mm ? 39w 5d ? >99% ? Hadlock Femur ?65.1 ?mm ? 33w 4d ?Hadlock Weight Calculation: EFW ?3,271 ?g ?95% ? Hadlock EFW (lb,oz) ?7 lb 3 ?oz EFW by ? Hadlock ([id number]) Head / Face / Neck Biometry: Curtain Stretcher Assembler ?5.3 ? mm CM ? 8.4 ? mm ANATOMY ----- The following structures appear normal: Head / Neck ? Cranium. Head size. Head shape. Lateral ventricles. Midline falx. Cavum septi pellucidi. Cerebellum. Cisterna magna. Thalami. Face ? Lips. Nose. Heart / Thorax ?4-chamber view. RVOT view. LVOT view. 9-sjaree-mbhaqep view. ? Diaphragm. Abdomen ? Stomach. Kidneys. Bladder. Spine ?Cervical spine. Thoracic spine. Lumbar spine. Sacral spine. The following structures could not be adequately visualized: Heart / Thorax ?Ductal arch view. Extremities / Skeleton ?Left foot. The following structures could not be visualized: Face ? Profile. Maxilla. Mandible. sex: male. MATERNAL STRUCTURES ----- Cervix ?Not examined Right Ovary ?Not examined Left Ovary ?Not examined RECOMMENDATION ----- Thank-you for referring your patient for ultrasound assessment. I discussed the findings on today's ultrasound with the patient. Further ultrasound studies as clinically indicated. We discussed her history of prior 7lb 8oz and 8lb 9oz babies. Her was also over 10lbs. This baby feels bigger to her than her previous. She has passed her glucose screening. Discussed in the absence of diabetes is not indicated based solely on size until the EFW > 5000g. We did discuss consideration for delivery at 39 weeks. Return to primary provider for continued care. If you have questions regarding today's evaluation or if we can be of further service, please contact the [facility]. anomalies may be present but not detected I spent a total of 10 minutes on the date of this encounter including preparing to see the patient (reviewing medical records/tests), counseling and discussing the plan of care, documenting the visit in the electronic medical record, and communicating with other health nursing care partner and/or care coordination. Procedure Note Jannet Marmolejo MD - 12/09/2023 Comp Follow Up ----- Pat. Name: ORLANDO VARGAS Study Date: 12/09/2023 10:19am Pat. NO: [id number] Referring MD: JERI LIU Site: Residential Subcontractor: Gini Joiner RDMS : 1990 Age: 33 ----- INDICATION ----- Follow up suboptimal anatomy. METHOD ----- Transabdominal ultrasound examination. View: Suboptimal view: limited byfetal position. Suboptimal view: limited by late gestational age. ----- Mcclellan . Number of fetuses: 1 DATING ----- DateDetailsGest. age LUCY LMP w + 3 d 01/10/2024 Previous U/S 06/09/2023 GA, GA9 w + 6 d36 w + 0 d 01/06/2024 U/S 12/09/2023ased upon AC, BPD, Femur, HC36 w + 4 d 01/02/2024 Assigned dating based on the LMP, selected on w + 3 d 01/10/2024 GENERAL EVALUATION ----- Cardiac activity present. FHR 159 bpm. movements: present.Presentation: cephalic Placenta: Posterior, No Previa, > 2 cm from internal os Umbilical cord: 3 vessel cord Amniotic fluid: Amount of AF: normal. MVP 4.3 cm BIOMETRY ----- BPD 88.7mm 35w 6dHadlock OFD 116.1mm -/-Nicolaides HC 327.6mm 37w 1dHadlock Cerebellum tr 49.1mm -/-Nicolaides AC 358.3mm 39w 5d >99%Hadlock Femur 65.1mm 33w 4dHadlock Weight Calculation: EFW 3,271g 95%Hadlock EFW (lb,oz) 7 lb 3oz EFW by Hadlock([id number]) Head / Face / Neck Biometry: Curtain Stretcher Assembler 5.3mm CM 8.4mm ANATOMY ----- The following structures appear normal: Head / Neck Cranium. Head size. Head shape.Lateral ventricles. Midline falx. Cavum septi pellucidi. Cerebellum.Cisterna magna. Thalami. Face Lips. Nose. Heart / Thorax 4-chamber view. RVOT view. LVOT view.5-etpeig-hukmknw view. Diaphragm. Abdomen Stomach. Kidneys. Bladder. Spine Cervical spine. Thoracic spine.Lumbar spine. Sacral spine. The following structures could not be adequately visualized: Heart / Thorax Ductal arch view. Extremities / Skeleton Left foot. The following structures could not be visualized: Face Profile. Maxilla. Mandible. sex: male. MATERNAL STRUCTURES ----- Cervix Not examined Right Ovary Not examined Left Ovary Not examined RECOMMENDATION ----- Thank-you for referring your patient for ultrasound assessment. Idiscussed the findings on today's ultrasound with the patient. Further ultrasound studies as clinically indicated. We discussed herhistory of prior 7lb 8oz and 8lb 9oz babies. Her was also [id number]. This baby feels bigger to her than her previous. She has passed her glucose screening. Discussed inthe absence of diabetes is not indicated based solely onfetal size until the EFW > 5000g. We did discuss consideration for delivery at 39 weeks. Return to primary provider for continued care. If you have questions regarding today's evaluation or if [facility] can [facility], please contact the [facility]. anomalies may be present but not detected I spent a total of 10 minutes on the date of this encounter includingpreparing to see the patient (reviewing medical records/tests), counselingand discussing the plan of care, documenting the visit in the electronic medical record, andcommunicating with other health nursing care partner and/or carecoordination. IMPRESSION ----- 1. Mcclellan at 35w 3d gestational age. 2. Due to advanced gestational age and positive some anatomyremains suboptimally visualized. No anomalies commonly detected byultrasound were identified within the limits of ultrasound. 3. Growth parameters and estimated weight were at the 95th% forgestational age. 4. The amniotic fluid volume appeared normal. Dunia Salas MD IMG [facility] US ORDERABLE S documented in this encounter Visit Diagnoses Diagnosis Encounter for follow-up ultrasound of anatomy documented in this encounter Care Teams Emergency Vehicle Operator Relationship Specialty Start Date End Date Jeri Liu APRN CNM [address] [address] PCP - General 11/17/23 documented as of this encounter
--- OUTSIDE RECORDS SUMMARY | 2023-12-15 09:25 | XMS_ITS | Clinical Summary ---
Author Organization [facility] Address [address] [place] [address]. [place] [address] Care Team Providers Care Wind Turbine Technician Name Role Phone ManeJeri bryan ANNAMARIA [facility] Primary Care Provider [phone]- [phone] Allergies Active Allergy Reactions Criticality Noted Date Comments Sulfa Antibiotics 05/30/2008 Noted in 05/28/08 ER Encounters Date Type Department Care Team Description 12/09/2023 10:45 AM CDT Office Visit [facility] Medicine [facility] [address] [facility] [address] [place] [phone] Jannet Marmolejo MD related condition, antepartum (Primary Dx); macrosomia during in third trimester, single or unspecified fetus 12/09/2023 10:11 AM CDT - 12/09/2023 11:59 PM CDT Hospital Encounter [facility] Maternal Medicine [facility] [address] [facility] [address] [place] [phone] Jannet Marmolejo MD Encounter for follow-up ultrasound of anatomy Discharge Disposition: Home or Self Care 12/09/2023 Travel 11/18/2023 12:15 PM CDT Office Visit [facility] Medicine [facility] [address] [facility] [address] [place] [phone] Dunia Salas MD Encounter for follow-up ultrasound of anatomy (Primary Dx); related condition, antepartum 11/18/2023 11:33 AM CDT - 11/18/2023 11:59 PM CDT Hospital Encounter [facility] Maternal Medicine [facility] [address] [facility] [address] [place] [phone] Dunia Salas MD Discharge Disposition: Home or Self Care 11/18/2023 Travel 11/17/2023 Medical Correspondence [facility] [address] [place] [address] Scan, Non-Provider 11/17/2023 PRE VISIT [facility] Maternal Medicine [place] [address] [facility] [address] [place] [phone] Cecy Bedoya RN Ultrasound (L2- Increased CSF within posterior fossa, MCI) 11/17/2023 Transcribe Orders [facility] Maternal Medicine [facility] [address] [facility] [address] [place] [phone] Jeri Liu APRN CNM related condition, antepartum (Primary Dx) from Last 3 Months Social History Tobacco Use Types Packs/Day Years Used Date Smoking Tobacco: Never Assessed Estimated Date of Delivery Comme nts Yes 01/10/2024 Based on last me nstrual period of 04/05/2023 Sex and Gender Information Value Date Recorded Sex Assigned at Not on file Gender Identity Not on file Sexual Orientation Not on file Plan of Treatment Health Maintenance Due Date Last Done Comments ADVANCE CARE PLANNING 1990 ANNUAL REVIEW OF HM ORDERS 1990 YEARLY PREVENTIVE VISIT 1990 HIV SCREENING 2006 HEPATITIS C SCREENING 2009 PAP 08/01/2022 08/02/2019 PHQ-2 (once per calendar year) 2023 MATERNAL SCREENING DISCUSSION 06/14/2023 OBGCT (OB) 09/20/2023 COVID-19 Vaccine ( - 2022-2 4 season) 2023 INFLUENZA VACCINE (#1) 2023 2, 01/14/2021, 12/30/2019 RSV VACCINE (1 - Risk 1-dose series) 12/06/2023 GROUP B STREP SCREENING 12/13/2023 DTAP/TDAP/TD IMMUNIZATION (4 - Td or Tdap) 01/14/2031 01/14/2021, 01/03/2020, 11/06/2008 HEPATITIS B IMMUNIZATION Completed 004, 09/29/2003, 08/09/2003 MENINGITIS IMMUNIZATION Aged Out 10/31/2005 No l onger eligible based on patient's age to complete this topic HPV IMMUNIZATION Completed 06/29/2012, 10/16/2009, 11/06/2008 Pneumococcal Vaccine: Pediatrics (0 to 5 Years) and At-Risk Patients (6 to 64 Years) Aged Out No longer eligible b ased on patient's age to complete this topic RSV MONOCLONAL ANTIBODY Aged Out No l onger eligible based on patient's age to complete this topic Procedures Procedure Name Priority Date/Time Associated Diagnosis Comments [facility] US COMPREHENSIVE SINGLE F/U Routine 12/09/2023 11:03 AM CDT Encounter for follow-up ultrasound of anatomy [facility] US COMPREHENSIVE SINGLE Routine 11/18/2023 12:46 PM CDT related condition, antepartum from Last 3 Months Results * [facility] US Comprehensive Single F/U (12/09/2023 11:03 [...] CDT ?Comp Follow Up ----- Pat. Name: NAVYA VARGAS ? Study Date: ??12/09/2023 10:19am Pat. NO: ??[id number] ?Referring ??MD: JERI LIU Site: ? Complaint Investigator: Gini Joiner RDMS : ??1990 ?Age: ?? [...] lb 3 ?oz EFW by ? Hadlock ([id number]) Head / Face / Neck Biometry: Purchasing Associate ?5.3 ? mm CM ? 8.4 ? mm ANATOMY ----- The following structures appear normal: Head / Neck ? Cranium. Head size. Head shape. Lateral ventricles. Midline falx. Cavum septi pellucidi. Cerebellum. Cisterna magna. Thalami. Face ? Lips. Nose. Heart / Thorax ?4-chamber view. RVOT view. LVOT view. 5-tqfgto-atmaseg view. ? Diaphragm. Abdomen ? Stomach. Kidneys. [...] medical record, and communicating with other health child care aide and/or care coordination. Procedure Note Jannet Marmolejo MD - 12/09/2023 Comp Follow Up ----- Pat. Name: NAVYA VARGAS Study Date: 12/09/2023 10:19am Pat. NO: [id number] Referring MD: JERI LIU Site: Complaint Investigator: Gini Joiner RDMS : 1990 Age: 33 [...] EFW (lb,oz) 7 lb 3oz EFW by Hadlock([id number]) Head / Face / Neck Biometry: Purchasing Associate 5.3mm CM 8.4mm ANATOMY ----- The following structures appear normal: Head / Neck Cranium. Head size. Head shape.Lateral ventricles. Midline falx. Cavum septi pellucidi. Cerebellum.Cisterna magna. Thalami. Face Lips. Nose. Heart / Thorax 4-chamber view. RVOT view. LVOT view.7-wagjpw-fawnulk view. Diaphragm. Abdomen Stomach. Kidneys. Bladder. Spine [...] and 8lb 9oz babies. Her was also [id number]. This baby feels bigger to her than her previous. She has passed her glucose screening. Discussed inthe absence of diabetes is not indicated based solely onfetal size until the EFW > 5000g. We did discuss consideration for delivery at 39 weeks. Return to primary provider for continued care. If you have questions regarding today's evaluation or if we can be [facility], please contact the [facility]. anomalies may be present but not detected I spent a total of 10 minutes on the date of this encounter includingpreparing to see the patient (reviewing medical records/tests), counselingand discussing the plan of care, documenting the visit in the electronic medical record, andcommunicating with other health child care aide and/or carecoordination. IMPRESSION ----- 1. Mcclellan at 35w 3d gestational age. 2. Due to advanced gestational age and positive some anatomyremains suboptimally visualized. No anomalies commonly detected byultrasound were identified within the limits of ultrasound. 3. Growth parameters and estimated weight were at the 95th% forgestational age. 4. The amniotic fluid volume appeared normal. Dunia Salas MD Ovi [facility] US ORDERABLE S * [facility] US Comprehensive Single (11/18/2023 12:46 PM CDT) [...] 1:31 PM CDT ?Comprehensive ----- Pat. Name: NAVYA VARGAS ? Study Date: ??11/18/2023 11:42am Pat. NO: ??[id number] ?Referring ??MD: JERI LIU Site: ? Complaint Investigator: Gini Joiner RDMS : ??1990 ?Age: ?? [...] lb 4 ?oz EFW by ? Hadlock ([id number]) Head / Face / Neck Biometry: Purchasing Associate ?5.4 ? mm CM ? 9.8 ? mm Nasal bone ? 12.8 ?mm ANATOMY ----- The following structures appear normal: Head / Neck ? Cranium. Head size. Head shape. Lateral ventricles. Choroid plexus. Midline falx. Cavum septi pellucidi. Cerebellum. Cisterna magna. ? Parenchyma. Thalami. Vermis. ? Neck. Face ? Lips. Nose. Orbits. Lens. Heart / Thorax ?4-chamber view. LVOT view. 3- vessel view. 2-vyubfq-tjegzbi view. Situs. Aortic arch view. Bicaval view. [...] medical record, and communicating with other health child care aide and/or care coordination. Procedure Note Dunia Salas MD - 11/18/2023 Comprehensive ----- Pat. Name: NAVYA VARGAS Study Date: 11/18/2023 11:42am Pat. NO: [id number] Referring MD: JERI LIU Site: Complaint Investigator: Gini Joiner RDMS : 1990 Age: 33 [...] EFW (lb,oz) 5 lb 4oz EFW by Hadlock([id number]) Head / Face / Neck Biometry: Purchasing Associate 5.4mm CM 9.8mm Nasal bone 12.8mm ANATOMY ----- The following structures appear normal: Head / Neck Cranium. Head size. Head shape.Lateral ventricles. Choroid plexus. Midline falx. Cavum septi pellucidi.Cerebellum. Cisterna magna. Parenchyma. Thalami. Vermis. Neck. Face Lips. Nose. Orbits. Lens. Heart / Thorax 4-chamber view. LVOT view. 3-vesselview. 6-nnxzfb-vehzgzj view. Situs. Aortic arch view. Bicaval view.Superior [...] electronic medical record, andcommunicating with other health child care aide and/or carecoordination. IMPRESSION ----- 1. Mcclellan at [...] volume appeared normal. Jeri Liu APRN, CNM [facility] ORDERAB LES from Last 3 Months Care Teams Wind Turbine Technician Relationship Specialty Start Date End Date Jeri Liu APRN CNM [facility] [address] [place] [address] PCP - General 11/17/23
--- OUTSIDE RECORDS SUMMARY | 2023-12-15 09:25 | XMS_ITS | Referral Summary ---
Author Organization [place] Address [address] [place] [address]. [place] [address] Care Team Providers Care Life Enrichment Director Name Role Phone AlexaJeri ANNAMARIA [facility] Primary Care Provider +1- [phone] Encounters Date Type Department Care Team Description 12/09/2023 Travel 12/09/2023 10:45 AM CDT Office Visit [facility] Medicine [facility] [address] [facility] [address] [place] [address] Jannet Marmolejo MD related condition, antepartum (Primary Dx); macrosomia during in third trimester, single or unspecified fetus 12/09/2023 10:11 AM CDT - 12/09/2023 11:59 PM CDT Hospital Encounter [facility] Maternal Medicine [facility] [address] [facility] [address] [place] [address] Jannet Marmolejo MD Encounter for follow-up ultrasound of anatomy Discharge Disposition: Home or Self Care 11/18/2023 Travel 11/18/2023 12:15 PM CDT Office Visit [facility] Medicine [facility] [address] [facility] [address] [place] [address] Dunia Salas MD Encounter for follow-up ultrasound of anatomy (Primary Dx); related condition, antepartum 11/18/2023 11:33 AM CDT - 11/18/2023 11:59 PM CDT Hospital Encounter [facility] Medicine [place] [address] [facility] [address] [place] [address] Dunia Salas MD Discharge Disposition: Home or Self Care 11/17/2023 Medical Correspondence [facility] [address] [place] [address] Scan, Non-Provider 11/17/2023 PRE VISIT [facility] Medicine [place] [address] [place] [phone] Cecy Bedoya RN Ultrasound (L2- Increased CSF within posterior fossa, MCI) 11/17/2023 Transcribe Orders [facility] Medicine [place] [address] [place] [phone] Jeri Liu APRN CNLayne related condition, antepartum (Primary Dx) from Last 3 Months Allergies Active Allergy Reactions Criticality Noted Date Comments Sulfa Antibiotics 05/30/2008 Noted in 05/28/08 ER Social History Tobacco Use Types Packs/Day Years Used Date Smoking Tobacco: Never Assessed Estimated Date of Delivery Comme nts Yes 01/10/2024 Based on last me nstrual period of 04/05/2023 Sex and Gender Information Value Date Recorded Sex Assigned at Not on file Gender Identity Not on file Sexual Orientation Not on file Plan of Treatment Not on file Procedures Procedure Name Priority Date/Time Associated Diagnosis Comments [facility] US COMPREHENSIVE SINGLE F/U Routine 12/09/2023 11:03 AM CDT Encounter for follow-up ultrasound of anatomy [facility] US COMPREHENSIVE SINGLE Routine 11/18/2023 12:46 PM CDT related condition, antepartum from Last 3 Months Results * [facility] US Comprehensive Single F/U (12/09/2023 11:03 AM [...] ? Study Date: ??12/09/2023 10:19am Pat. NO: ??[id number] ?Referring ??: JERI LIU Site: ? Pbx Supervisor: Gini Joiner RDMS : ??1990 ?Age: [...] lb 3 ?oz EFW by ? Hadlock ([id number]) Head / Face / Neck Biometry: Wrapper Selector ?5.3 ? mm CM ? 8.4 ? mm ANATOMY ----- The following structures appear normal: Head / Neck ? Cranium. Head size. Head shape. Lateral ventricles. Midline falx. Cavum septi pellucidi. Cerebellum. Cisterna magna. Thalami. Face ? Lips. Nose. Heart / Thorax ?4-chamber view. RVOT view. LVOT view. 1-qmnild-wzzcrwg view. ? Diaphragm. Abdomen ? Stomach. Kidneys. [...] medical record, and communicating with other health primary care provider and/or care coordination. Procedure Note Jannet Marmolejo MD - 12/09/2023 Comp Follow Up ----- Pat. Name: ORLANDO VARGAS Study Date: 12/09/2023 10:19am Pat. NO: [id number] Referring MD: JERI LIU Site: Pbx Supervisor: Gini Joiner RDMS : 1990 Age: [...] EFW (lb,oz) 7 lb 3oz EFW by Hadlock([id number]) Head / Face / Neck Biometry: Wrapper Selector 5.3mm CM 8.4mm ANATOMY ----- The following structures appear normal: Head / Neck Cranium. Head size. Head shape.Lateral ventricles. Midline falx. Cavum septi pellucidi. Cerebellum.Cisterna magna. Thalami. Face Lips. Nose. Heart / Thorax 4-chamber view. RVOT view. LVOT view.7-pkwpbg-cxocwcd view. Diaphragm. Abdomen Stomach. Kidneys. Bladder. Spine [...] and 8lb 9oz babies. Her was also xvyd12qpy. This baby feels bigger to her than [...] electronic medical record, andcommunicating with other health primary care provider and/or carecoordination. IMPRESSION ----- 1. Mcclellan at 35w 3d gestational age. 2. Due to advanced gestational age and positive some anatomyremains suboptimally visualized. No anomalies commonly detected byultrasound were identified within the limits of ultrasound. 3. Growth parameters and estimated weight were at the 95th% forgestational age. 4. The amniotic fluid volume appeared normal. Dunia Salas MD [facility] US ORDERABLE S [facility] US Comprehensive Single (11/18/2023 12:46 PM [...] 1:31 PM CDT ?Comprehensive ----- Pat. Name: LILIAN VARGASA ? Study Date: ??11/18/2023 11:42am Pat. NO: ??[id number] ?Referring ??MD: JERI LIU Site: ? Pbx Supervisor: Gini Joiner RDMS : ??1990 ?Age: [...] BPD ? 81.7 ?mm ? 32w 6d ?Gregg HOLMAN ? 110.7 ?mm ? 33w 2d ? [...] lb 4 ?oz EFW by ? Hadlock ([id number]) Head / Face / Neck Biometry: Wrapper Selector ?5.4 ? mm CM ? 9.8 ? mm Nasal bone ? 12.8 ?mm ANATOMY ----- The following structures appear normal: Head / Neck ? Cranium. Head size. Head shape. Lateral ventricles. Choroid plexus. Midline falx. Cavum septi pellucidi. Cerebellum. Cisterna magna. ? Parenchyma. Thalami. Vermis. ? Neck. Face ? Lips. Nose. Orbits. Lens. Heart / Thorax ?4-chamber view. LVOT view. 3- vessel view. 8-dwbazw-woobwcf view. Situs. Aortic arch view. Bicaval view. [...] medical record, and communicating with other health primary care provider and/or care coordination. Procedure Note Dunia Salas MD - 11/18/2023 Comprehensive ----- Pat. Name: ORLANDO VARGAS Study Date: 11/18/2023 11:42am Pat. NO: [id number] Referring MD: JERI LIU Site: Pbx Supervisor: Gini Joiner RDMS : 1990 Age: [...] EFW (lb,oz) 5 lb 4oz EFW by Hadlock([id number]) Head / Face / Neck Biometry: Wrapper Selector 5.4mm CM 9.8mm Nasal bone 12.8mm ANATOMY ----- The following structures appear normal: Head / Neck Cranium. Head size. Head shape.Lateral ventricles. Choroid plexus. Midline falx. Cavum septi pellucidi.Cerebellum. Cisterna magna. Parenchyma. Thalami. Vermis. Neck. Face Lips. Nose. Orbits. Lens. Heart / Thorax 4-chamber view. LVOT view. 3-vesselview. 7-sfikph-qyblbtl view. Situs. Aortic arch view. Bicaval view.Superior [...] electronic medical record, andcommunicating with other health primary care provider and/or carecoordination. IMPRESSION ----- 1. Mcclellan at [...] The amniotic fluid volume appeared normal. Jeri [facility] ORDERAB LES from Last 3 Months Care Teams Life Enrichment Director Relationship Specialty Start Date End Date Jeri Liu APRN CNM [facility] [address] [place] [address] PCP - General 11/17/23
--- OUTSIDE RECORDS SUMMARY | 2023-12-15 09:25 | XMS_ITS | Clinical Summary ---
Author Organization [facility] Address [place], [place] [address] Care Team Providers Care Tailings Man Name Role Phone Unavailable Primary Care Provider [...] Comments Blood Pressure 117/75 03/24/2019 8:25 AM MEDICAL ADVISOR Pulse 80 03/24/2019 8:25 AM MEDICAL ADVISOR Temperature 36.7 ??C (98 ??F) 03/24/2019 8:25 AM MEDICAL ADVISOR Respiratory Rate - - Oxygen Saturation 98% 03/24/2019 8:25 AM MEDICAL ADVISOR Inhaled Oxygen Concentration - - Weight 64.5 kg (142 lb 3.2 oz) 03/24/2019 8:25 A M MEDICAL ADVISOR Height 165.1 cm (5' 5) 03/24/2019 8:25 AM MEDICAL ADVISOR Body Mass Index 23.66 03/24/2019 8:25 AM MEDICAL ADVISOR Plan of Treatment Health Maintenance Due Date Last Done Comments Depression screening for age 12+ 2003 HIV for age 15-65 2006 Hepatitis C screening for ag e 18-79 2009 Tetanus booster 11/06/2018 11/06/2008 BMI (ht and wt on same day) for age 18+ 03/24/2020 03/24/2019, 03/06/2016, 12/06/2015 Pap test for age 21-65 08/01/2022 0, 12/09/2013, 06/29/2012 COVID-19 vaccine series ( season) 2023 Influenza for age 9-49 12/06/2023 Tdap Completed 11/06/2008 Pneumococcal series for age 6-64 Aged Out No longer eligible b ased on patient's age to complete this topic Procedures Procedure Name Priority Date/Time Associated Diagnosis Comments FRESH FOODS CLERK THIN PREP PAP SCREEN IMAGED Routine 08/02/2019 4:15 PM CDT from Last 3 Months or Most Recently Relevant to Health Maintenance Results * FRESH FOODS CLERK THIN PREP PAP SCREEN IMAGED (08/02/2019 4:15 PM CDT) Case Report Gynecologic Cytology Report ? Case: [id number] ? Authorizing Provider: ??Laura Montez PA-C ?Collected: ? 08/02/2019 1615 ? Ordering Location: ? [facility] ?Received: ?08/04/2019 0849 ? First Screen: ?Romina Baxter ? Specimen: ?FRESH FOODS CLERK ThinPrep Vial Screening, Cervical/Vaginal ? 08/04/2019 5:55 PM CDT [facility] INTERPRETATION/ RESULT NEGATIVE FOR INTRAEPITHELIAL LESION OR MALIGNANCY (NIL) (none) 08/04/2019 5:55 PM CDT [facility] IMEN ADEQUACY Satisfactory for evaluation No endocervical component seen in a patient Excessive cytolysis/autolys is 08/04/2019 5:55 PM CDT [facility] HPV REQUEST HPV if ASCUS 08/04/2019 5:55 PM CDT [facility] Date of LMP 06/06/2019 08/04/2019 5:55 PM CDT [facility] Last Pap Result 0 5:55 PM CDT [facility] Comment:neg Menstrual Status 08/04/2019 5:55 PM CDT [facility] Additional Information 08/04/2019 5:55 PM CDT [facility] Comment: Interpreted at [employer] [facility] - [address], [place] [address] Automated Review Successful 08/04/2019 5:55 PM CDT [facility] Comment:Specimen processed s uccessfully by automated lockmaker device, ThinPrep Imaging System, [employer] Note The pap test is a [...] and malignant lesions. 08/04/2019 5:55 PM CDT [facility] Other (Cervical/Vagina l) 08/02/2019 4:15 PM CDT 08/04/2019 8:49 AM CDT July Melida WAN PATHOLOGY/CYTOLOGY [facility] [address] [place] [address], [place] from Last 3 Months or Most Recently Relevant to Health Maintenance
--- OUTSIDE RECORDS SUMMARY | 2023-12-15 09:25 | XMS_ITS | Encounter Summary ---
Author Organization [place] Address [address] [place] [address]. [place] [address] Care Team Providers Care Injection Molding Machine Operator Name Role Phone Gerda Liu APRN, CNM Primary Care Provider +1- [phone] Reason for Visit * Reason Comments Ultrasound L2- Increased CSF wi thin posterior fossa, MCI Encounter Details Date Type Department Care Team (Late st Contact Info) Description 11/17/2023 PRE VISIT [facility] Maternal Medicine Center [place] [address] [facility] [address] [place] [address] Cecy Bedoya RN Ultrasound (L2- Increased CSF within posterior fossa, MCI) Social History Tobacco Use Types Packs/Day Years [...] on filedocumented in this encounter Care Teams Injection Molding Machine Operator Relationship Specialty Start Date End Date Gerda Liu APRN CNM [facility] [address] [place] [address] PCP - General 11/17/23 documented as of this encounter
--- OUTSIDE RECORDS SUMMARY | 2023-12-15 09:25 | XMS_ITS | Encounter Summary ---
Author Organization [place] Address [address] [facility] [facility] [place] [address] Care Team Providers Care Brazer Helper Induction Name Role Phone Alexa Gerda [facility] Primary Care Provider +1- [phone] Reason for Visit * Reason Comments Ultrasound RL2-subopt Encounter Details Date Type Department Care Team (Late st Contact Info) Description 12/09/2023 10:45 AM CDT Office Visit [facility] Maternal Medicine Center [place] [address] [facility] [address] [place] [address] Jannet Marmolejo MD [address] [facility] [address] [place] [address] related condition, antepartum (Primary Dx); macrosomia during in third trimester, single or unspecified fetus Social History Tobacco Use Types Packs/Day Years Used Date Smoking Tobacco: Never Assessed Estimated Date of Delivery Comme nts Yes 01/10/2024 Based on last me nstrual period of 04/05/2023 Sex and Gender Information Value Date Recorded Sex Assigned at Not on file Gender Identity Not on file Sexual Orientation Not on file documented as of this encounter Progress Notes * Jannet Marmolejo MD - 12/09/2023 10:45 AM CDT The patient was seen for an ultrasound in the Maternal- Medicine Center at the [facility] today. For a detailed report of the ultrasound examination, please see the ultrasound report which can be found under the imaging tab. If you have questions regarding today's evaluation or if we can be of further service, please contact the Maternal- Medicine Center. Jannet Marmolejo MD Escalation Engineer, YARN HANDLER Maternal- Medicine [phone] (Pager) documented in this encounter Nursing Notes * Dayanara Novak RN - 12/09/2023 10:45 AM CDT Patient reports good movement, reports irregular contractions, denies leaking of fluid, or bleeding. SBAR given to KASI MAE, see their note in Epic. documented in this encounter Plan of Treatment Not on file documented as of this encounter Visit Diagnoses Diagnosis related condition, antepartum- Primary macrosomia during in third trimester, single or unspecified fetus documented in this encounter Care Teams Brazer Helper Induction Relationship Specialty Start Date End Date Gerda Liu APRN CNM [address] [address] PCP - General 11/17/23 documented as of this encounter
--- OUTSIDE RECORDS SUMMARY | 2023-12-15 09:25 | XMS_ITS | Encounter Summary ---
Author Organization [place] Address [address] [place] [address]. [place] [address] Care Team Providers Care Senior Production Planner Name Role Phone Gerda Liu APRN [facility] Primary Care Provider +1- [phone] Encounter Details Date Type Department Care Team (Latest Contact Info) Description 12/09/2023 Travel Social History Tobacco Use Types Packs/Day [...] on filedocumented in this encounter Care Teams Senior Production Planner Relationship Specialty Start Date End Date Gerda Liu APRN CNM [facility] [address] [place] [address] PCP - General 11/17/23 documented as of this encounter
--- OUTSIDE RECORDS SUMMARY | 2023-12-15 09:25 | XMS_ITS | Encounter Summary ---
Author Organization [place] Address [address] [facility] [place] [address] Care Team Providers Care Millinery Worker Name Role Phone AlexaJeri ANNAMARIA [facility] Primary Care Provider +1- [phone] Reason for Referral * Diagnostic Imaging Ultrasound (Routine) - Pending Review Specialty Diagnoses / Procedures Referred By Contac t Referred To Contact Radiology. Diagnoses Encounter for follow-up ultrasound of anatomy Procedures [facility] US Comprehensive Single F/U Dunia Salas MD [address] [place] [address] Referral ID Status Reason Start Date Expiration Date V isits Requested Visits Authorized [id number] Pending Review 11/18/2023 11/17/2024 1 1 Reason for Visit * Reason Comments Ultrasound L2- Increased CSF wi thin posterior fossa, MCI Encounter Details Date Type Department Care Team (Late st Contact Info) Description 11/18/2023 12:15 PM CDT Office Visit [facility] Maternal Medicine Center [place] [address] [facility] [address] [place] [address] Dunia Salas MD [address] [place] [address] Encounter for follow-up ultrasound of anatomy (Primary Dx); related condition, antepartum Social History Tobacco Use Types Packs/Day Years Used Date Smoking Tobacco: Never Assessed Estimated Date of Delivery Comme nts Yes 01/10/2024 Based on last me nstrual period of 04/05/2023 Sex and Gender Information Value Date Recorded Sex Assigned at Not on file Gender Identity Not on file Sexual Orientation Not on file documented as of this encounter Progress Notes * Dunia Salas MD - 11/18/2023 12:15 PM CDT Please see Imaging tab under Chart Review for details of today's visit. Dunia Salas documented in this encounter Nursing Notes * Dayanara Novak, RN - 11/18/2023 12:15 PM CDT Patient reports good movement, reports [place] contractions, denies leaking of fluid, or bleeding. SBAR given to KASI MAE, see their note in Epic. documented in this encounter Plan of Treatment Not on file documented as of this encounter Procedures Procedure Name Priority Date/Time Associated Diagnosis Comments [facility] COMPREHENSIVE SINGLE Routine 11/18/2023 12:46 PM CDT related condition, antepartum documented in this encounter Results * [facility] Comprehensive Single F/U (12/09/2023 11:03 AM CDT) [...] ?Comp Follow Up ----- Pat. Name: ORLANDO PLUMMER ? Study Date: ??12/09/2023 10:19am Pat. NO: ??[id number] ?Referring ??MD: JERI LIU Site: ? Telephone Solicitor Supervisor: Gini Joiner RDMS : ??1990 ?Age: [...] ? 01/02/2024 Assigned dating ?based on the [facility], selected on 12/09/2023 ? 35 w + [...] lb 3 ?oz EFW by ? Hadlock ([id number]) Head / Face / Neck Biometry: Fire Prevention Research Engineer ?5.3 ? mm CM ? 8.4 ? mm ANATOMY ----- The following structures appear normal: Head / Neck ? Cranium. Head size. Head shape. Lateral ventricles. Midline falx. Cavum septi pellucidi. Cerebellum. Cisterna magna. Thalami. Face ? Lips. Nose. Heart / Thorax ?4-chamber view. RVOT view. LVOT view. 5-jjzqhk-jsczmkw view. ? Diaphragm. Abdomen ? Stomach. Kidneys. [...] medical record, and communicating with other health cardiac care nurse and/or care coordination. Procedure Note Jannet Marmolejo MD - 12/09/2023 Comp Follow Up ----- Pat. Name: ORLANDO PLUMMER Study Date: 12/09/2023 10:19am Pat. NO: [id number] Referring MD: JERI LIU Site: Telephone Solicitor Supervisor: Gini Joiner RDMS : 1990 Age: [...] EFW (lb,oz) 7 lb 3oz EFW by Hadlock([id number]) Head / Face / Neck Biometry: Fire Prevention Research Engineer 5.3mm CM 8.4mm ANATOMY ----- The following structures appear normal: Head / Neck Cranium. Head size. Head shape.Lateral ventricles. Midline falx. Cavum septi pellucidi. Cerebellum.Cisterna magna. Thalami. Face Lips. Nose. Heart / Thorax 4-chamber view. RVOT view. LVOT view.9-onhvks-nfdzgac view. Diaphragm. Abdomen Stomach. Kidneys. Bladder. Spine [...] and 8lb 9oz babies. Her was also dsyj00lzp. This baby feels bigger to her than [...] electronic medical record, andcommunicating with other health cardiac care nurse and/or carecoordination. IMPRESSION ----- 1. Mcclellan at 35w 3d gestational age. 2. Due to advanced gestational age and positive some anatomyremains suboptimally visualized. No anomalies commonly detected byultrasound were identified within the limits of ultrasound. 3. Growth parameters and estimated weight were at the 95th% forgestational age. 4. The amniotic fluid volume appeared normal. Dunia Salas MD [facility] US ORDERABLE S * [facility] Comprehensive Single (11/18/2023 12:46 PM CDT) Anatomical [...] PM CDT ?Comprehensive ----- Pat. Name: ORLANDO PLUMMER ? Study Date: ??11/18/2023 11:42am Pat. NO: ??[id number] ?Referring ??MD: JERI LIU Site: ? Telephone Solicitor Supervisor: Gini Joiner RDMS : ??1990 ?Age: [...] lb 4 ?oz EFW by ? Hadlock ([id number]) Head / Face / Neck Biometry: Fire Prevention Research Engineer ?5.4 ? mm CM ? 9.8 ? mm Nasal bone ? 12.8 ?mm ANATOMY ----- The following structures appear normal: Head / Neck ? Cranium. Head size. Head shape. Lateral ventricles. Choroid plexus. Midline falx. Cavum septi pellucidi. Cerebellum. Cisterna magna. ? Parenchyma. Thalami. Vermis. ? Neck. Face ? Lips. Nose. Orbits. Lens. Heart / Thorax ?4-chamber view. LVOT view. 3- vessel view. 6-kfeptc-azctqsm view. Situs. Aortic arch view. Bicaval view. [...] medical record, and communicating with other health cardiac care nurse and/or care coordination. Procedure Note Dunia Salas MD - 11/18/2023 Comprehensive ----- Pat. Name: ORLANDO PLUMMER Study Date: 11/18/2023 11:42am Pat. NO: [id number] Referring MD: JERI LIU Site: Telephone Solicitor Supervisor: Gini Joiner RDMS : 1990 Age: [...] EFW (lb,oz) 5 lb 4oz EFW by Hadlock([id number]) Head / Face / Neck Biometry: Fire Prevention Research Engineer 5.4mm CM 9.8mm Nasal bone 12.8mm ANATOMY ----- The following structures appear normal: Head / Neck Cranium. Head size. Head shape.Lateral ventricles. Choroid plexus. Midline falx. Cavum septi pellucidi.Cerebellum. Cisterna magna. Parenchyma. Thalami. Vermis. Neck. Face Lips. Nose. Orbits. Lens. Heart / Thorax 4-chamber view. LVOT view. 3-vesselview. 1-ilnsja-xynuxmp view. Situs. Aortic arch view. Bicaval view.Superior [...] electronic medical record, andcommunicating with other health cardiac care nurse and/or carecoordination. IMPRESSION ----- 1. Mcclellan at [...] volume appeared normal. Jeri Liu APRN, CNM [facility] US ORDERAB LES documented in this encounter Visit Diagnoses Diagnosis Encounter for follow-up ultrasound of anatomy- Primary related condition, antepartum Encounter for follow-up ultrasound of anatomy documented in this encounter Care Teams Millinery Worker Relationship Specialty Start Date End Date Jeri Liu APRN CNM [address] [address] PCP - General 11/17/23 documented as of this encounter
--- OUTSIDE RECORDS SUMMARY | 2023-12-15 09:25 | XMS_ITS | Encounter Summary ---
Author Organization [place] Address [address] [facility] [place] [address] Care Team Providers Care Offc Spec Name Role Phone Jeri Liu APRN [facility] Primary Care Provider +1- [phone] Reason for Visit * Diagnostic Imaging Ultrasound (Routine) - Pending Review Specialty Diagnoses / Procedures Referred By Jef t Referred To Contact Radiology. Diagnoses related condition, antepartum Procedures MFM US Comprehensive Single Jeri Liu APRN CNM [facility] [address] [place] [address] Referral ID Status Reason Start Date Expiration Date V isits Requested Visits Authorized [id number] Pending Review 11/17/2023 11/16/2024 1 1 Encounter Details Date Type Department Care Team (Latest Contact Info) Description 11/18/2023 11:33 AM CDT - 11/18/2023 11:59 PM CDT Hospital Encounter [facility] Maternal Medicine [facility] [place] [address] [facility] [address] [place] [address] Dunia Salas MD [address] [place] [address] [address] [place] [address] Discharge Disposition: Home or Self Care Social [...] Procedure Name Priority Date/Time Associated Diagnosis Comments [facility] US COMPREHENSIVE SINGLE Routine 11/18/2023 12:46 PM CDT related condition, antepartum documented in this encounter Results * [facility] US Comprehensive Single (11/18/2023 12:46 PM CDT) [...] ? Study Date: ??11/18/2023 11:42am Pat. NO: ??[id number] ?Referring ??MD: JERI LIU Site: ? White Sugar Boiler: Gini Joiner RDMS : ??1990 ?Age: ?? [...] lb 4 ?oz EFW by ? Hadlock ([id number]) Head / Face / Neck Biometry: Catalogue Clerk ?5.4 ? mm CM ? 9.8 ? mm Nasal bone ? 12.8 ?mm ANATOMY ----- The following structures appear normal: Head / Neck ? Cranium. Head size. Head shape. Lateral ventricles. Choroid plexus. Midline falx. Cavum septi pellucidi. Cerebellum. Cisterna magna. ? Parenchyma. Thalami. Vermis. ? Neck. Face ? Lips. Nose. Orbits. Lens. Heart / Thorax ?4-chamber view. LVOT view. 3- vessel view. 9-nzskgv-dvxuaed view. Situs. Aortic arch view. Bicaval view. [...] medical record, and communicating with other health hearing healthcare practitioner and/or care coordination. Procedure Note Dunia Salas MD - 11/18/2023 Comprehensive ----- Pat. Name: ORLANDO VARGAS Study Date: 11/18/2023 11:42am Pat. NO: [id number] Referring MD: JERI LIU Site: White Sugar Boiler: Gini Joiner RDMS : 1990 Age: 33 [...] EFW (lb,oz) 5 lb 4oz EFW by Hadlock([id number]) Head / Face / Neck Biometry: Catalogue Clerk 5.4mm CM 9.8mm Nasal bone 12.8mm ANATOMY ----- The following structures appear normal: Head / Neck Cranium. Head size. Head shape.Lateral ventricles. Choroid plexus. Midline falx. Cavum septi pellucidi.Cerebellum. Cisterna magna. Parenchyma. Thalami. Vermis. Neck. Face Lips. Nose. Orbits. Lens. Heart / Thorax 4-chamber view. LVOT view. 3-vesselview. 8-ezzocc-isqoghn view. Situs. Aortic arch view. Bicaval view.Superior [...] electronic medical record, andcommunicating with other health hearing healthcare practitioner and/or carecoordination. IMPRESSION ----- 1. Mcclellan at [...] volume appeared normal. Jeri Liu APRN, CNM [facility] US ORDERAB LES documented in this encounter Visit Diagnoses Not on filedocumented in this encounter Care Teams Offc Spec Relationship Specialty Start Date End Date [place] [address] PCP - General 11/17/23 documented as of this encounter
--- OUTSIDE RECORDS SUMMARY | 2023-12-15 09:25 | XMS_ITS | Encounter Summary ---
Author Organization [facility] Address [facility] [place] [address] Care Team Providers Care Exhibitions Curator Name Role Phone Gerda Liu APRN, CNM Primary Care Provider +1- [phone] Encounter Details Date Type Department Care Team (Late st Contact Info) Description 11/17/2023 Medical Correspondence [facility] Mgmt [facility] [address] [place] [address] Scan, Non-Provider Social History Tobacco Use Types Packs/Day Years [...] on filedocumented in this encounter Care Teams Exhibitions Curator Relationship Specialty Start Date End Date Gerda Liu APRN CNM [facility] [address] [place] [address] PCP - General 11/17/23 documented as of this encounter
== END 2023-12-15 09:17 | disposition home or self-care (01) ==
LOC: US 09:18
PROVIDERS: Visit Provider Advanced Practice Midwife
DX: O43.199 Other malformation of placenta, unspecified trimester (principal); Z3A.38 38 weeks gestation of pregnancy
CPT/HCPCS: 76816; 76819

== ENCOUNTER 2023-12-15 12:12 | Outpatient (CLI) | payer BC, SELFPAY ==
--- OUTSIDE RECORDS SUMMARY | 2023-12-19 15:46 | XMS_ITS | Encounter Summary ---
Author Organization [facility] Address [address] [place] [address]. [place] [address] Care Team Providers Care Core Measures Abstractor Name Role Phone Gerda Liu APRN [facility] Primary Care Provider +1- [phone] Encounter Details Date Type Department Care Team [...] on filedocumented in this encounter Care Teams Core Measures Abstractor Relationship Specialty Start Date End Date Gerda Liu APRN CNM [facility] [address] [place] [address] PCP - General 11/17/23 documented as of this encounter
--- OUTSIDE RECORDS SUMMARY | 2023-12-19 15:46 | XMS_ITS | Encounter Summary ---
Author Organization [facility] Address [address] [place] [address]. [place] [address] Care Team Providers Care Dental Equipment Mechanic Name Role Phone Gerda Liu APRN [facility] Primary Care Provider +1- [phone] Encounter Details Date Type Department Care Team [...] on filedocumented in this encounter Care Teams Dental Equipment Mechanic Relationship Specialty Start Date End Date Gerda Liu APRN CNM [facility] [address] [place] [address] PCP - General 11/17/23 documented as of this encounter
--- OUTSIDE RECORDS SUMMARY | 2023-12-19 15:46 | XMS_ITS | Clinical Summary ---
Author Organization [employer] [facility] Address [place], [place] [address] Care Team Providers Care Lumber Mover Name Role Phone Unavailable Primary Care Provider [...] Comments Blood Pressure 117/75 03/24/2019 8:25 AM LEAD ELECTRICAL ENGINEER Pulse 80 03/24/2019 8:25 AM LEAD ELECTRICAL ENGINEER Temperature 36.7 ??C (98 ??F) 03/24/2019 8:25 AM LEAD ELECTRICAL ENGINEER Respiratory Rate - - Oxygen Saturation 98% 03/24/2019 8:25 AM LEAD ELECTRICAL ENGINEER Inhaled Oxygen Concentration - - Weight 64.5 kg (142 lb 3.2 oz) 03/24/2019 8:25 A M LEAD ELECTRICAL ENGINEER Height 165.1 cm (5' 5) 03/24/2019 8:25 AM LEAD ELECTRICAL ENGINEER Body Mass Index 23.66 03/24/2019 8:25 AM LEAD ELECTRICAL ENGINEER Plan of Treatment Health Maintenance Due Date [...] Procedure Name Priority Date/Time Associated Diagnosis Comments TECHNICAL SERVICE SPECIALIST THIN PREP PAP SCREEN IMAGED Routine 08/02/2019 4:15 PM CDT from Last 3 Months or Most Recently Relevant to Health Maintenance Results * TECHNICAL SERVICE SPECIALIST THIN PREP PAP SCREEN IMAGED (08/02/2019 4:15 PM CDT) Case Report Gynecologic Cytology Report ? Case: [id number] ? Authorizing Provider: ??Laura Montez PA-C ?Collected: ? 08/02/2019 1615 ? Ordering Location: ? [facility] ?Received: ?08/04/2019 0849 ? First Screen: ?Romina Baxter ? Specimen: ?TECHNICAL SERVICE SPECIALIST ThinPrep Vial Screening, Cervical/Vaginal ? 08/04/2019 5:55 PM CDT [facility] ENTRAL LABORATORY INTERPRETATION/ RESULT NEGATIVE FOR INTRAEPITHELIAL LESION OR MALIGNANCY (NIL) (none) 08/04/2019 5:55 PM CDT [facility] IMEN ADEQUACY Satisfactory for evaluation No endocervical component seen in a patient Excessive cytolysis/autolys is 08/04/2019 5:55 PM CDT [facility] HPV REQUEST HPV if ASCUS 08/04/2019 5:55 PM CDT [facility] Date of LMP 06/06/2019 08/04/2019 5:55 PM CDT [facility] Last Pap Result 0 5:55 PM CDT [facility] Comment:neg Menstrual Status 08/04/2019 5:55 PM CDT [facility] Additional Information 08/04/2019 5:55 PM CDT [facility] Comment: Interpreted at [facility] Tactile [facility] - [address], [place] [address] Automated Review Successful 08/04/2019 5:55 PM CDT [facility] Comment:Specimen processed s uccessfully by automated clinical resource nurse device, ThinPrep Imaging System, [employer] Note The pap test is a [...] and malignant lesions. 08/04/2019 5:55 PM CDT [facility] Other (Cervical/Vagina l) 08/02/2019 4:15 PM CDT 08/04/2019 8:49 AM CDT July Melida WAN PATHOLOGY/CYTOLOGY [facility] [address] [place] [address], [place] from Last 3 Months or Most Recently Relevant to Health Maintenance
--- OUTSIDE RECORDS SUMMARY | 2023-12-19 15:46 | XMS_ITS | Encounter Summary ---
Author Organization [facility] Address [facility] [place] [address] Care Team Providers Care Section Leader Name Role Phone Gerda Liu APRN, CNM Primary Care Provider +1- [phone] Encounter Details Date Type Department Care Team (Late st Contact Info) Description 11/17/2023 Medical Correspondence [facility] Mgmt [facility] [address] [place] [address] Scan, Non-Provider Social History Tobacco [...] on filedocumented in this encounter Care Teams Section Leader Relationship Specialty Start Date End Date Gerda Liu APRN CNM [facility] [address] [place] [address] PCP - General 11/17/23 documented as of this encounter
--- OUTSIDE RECORDS SUMMARY | 2023-12-19 15:46 | XMS_ITS | Referral Summary ---
Author Organization [facility] Address [address] [place] [address]. [place] [address] Care Team Providers Care Certified Surgical Technologist Name Role Phone AlexaJeri [facility] Primary Care Provider +1- [phone] Encounters Date Type Department Care Team Description 12/09/2023 Travel 12/09/2023 10:45 AM CDT Office Visit [facility] Medicine [facility] [address] [facility] [address] [place] [address] Jannet Marmolejo MD related condition, antepartum (Primary Dx); macrosomia during in third trimester, single or unspecified fetus 12/09/2023 10:11 AM CDT - 12/09/2023 11:59 PM CDT Hospital Encounter [facility] Maternal Medicine [facility] [address] [facility] [address] [place] [address] Jannet Marmolejo MD Encounter for follow-up ultrasound of anatomy Discharge Disposition: Home or Self Care 11/18/2023 Travel 11/18/2023 12:15 PM CDT Office Visit [facility] Medicine [facility] [address] [facility] [address] [place] [address] Dunia Salas MD Encounter for follow-up ultrasound of anatomy (Primary Dx); related condition, antepartum 11/18/2023 11:33 AM CDT - 11/18/2023 11:59 PM CDT Hospital Encounter [facility] Medicine [place] [address] [place] [address] Dunia Salas MD Discharge Disposition: Home or Self Care 11/17/2023 Medical Correspondence [facility] [address] [facility] [place] [address] Scan, Non-Provider 11/17/[address] [facility] Medicine [place] [address] [facility] [address] [place] [phone] Cecy Bedoya RN Ultrasound (L2- Increased CSF within posterior fossa, MCI) 11/17/[address] [facility] Medicine [place] [address] [facility] [address] [place] [phone] Jeri Liu APRN CNL[facility] related condition, antepartum [...] Procedure Name Priority Date/Time Associated Diagnosis Comments [facility] US COMPREHENSIVE SINGLE F/U Routine 12/09/2023 11:03 AM CDT Encounter for follow-up ultrasound of anatomy [facility] US COMPREHENSIVE SINGLE Routine 11/18/2023 12:46 PM CDT related condition, antepartum from Last 3 Months Results * [facility] US Comprehensive Single F/U (12/09/2023 11:03 AM [...] CDT ?Comp Follow Up ----- Pat. Name: ROLANDO VARGAS ? Study Date: ??12/09/2023 10:19am Pat. NO: ??[id number] ?Referring ??: JERI LIU Site: ? Shank Faker: Gini Joiner RDMS : ??1990 ?Age: ?? [...] lb 3 ?oz EFW by ? Hadlock ([id number]) Head / Face / Neck Biometry: Itinerant Teacher Assistant ?5.3 ? mm CM ? 8.4 ? mm ANATOMY ----- The following structures appear normal: Head / Neck ? Cranium. Head size. Head shape. Lateral ventricles. Midline falx. Cavum septi pellucidi. Cerebellum. Cisterna magna. Thalami. Face ? Lips. Nose. Heart / Thorax ?4-chamber view. RVOT view. LVOT view. 9-iinzrj-vpfbghp view. ? Diaphragm. Abdomen ? Stomach. Kidneys. [...] and communicating with other health child care counselor and/or care coordination. Procedure Note Jannet Marmolejo MD - 12/09/2023 Comp Follow Up ----- Pat. Name: ORLANDO VARGAS Study Date: 12/09/2023 10:19am Pat. NO: [id number] Referring MD: JERI LIU Site: Shank Faker: Gini Joiner RDMS : 1990 Age: 33 [...] EFW (lb,oz) 7 lb 3oz EFW by Hadlock([id number]) Head / Face / Neck Biometry: Itinerant Teacher Assistant 5.3mm CM 8.4mm ANATOMY ----- The following structures appear normal: Head / Neck Cranium. Head size. Head shape.Lateral ventricles. Midline falx. Cavum septi pellucidi. Cerebellum.Cisterna magna. Thalami. Face Lips. Nose. Heart / Thorax 4-chamber view. RVOT view. LVOT view.1-ldmrxs-luyqmta view. Diaphragm. Abdomen Stomach. Kidneys. Bladder. Spine [...] and 8lb 9oz babies. Her was also jenf38qmi. This baby feels bigger to her than [...] record, andcommunicating with other health child care counselor and/or carecoordination. IMPRESSION ----- 1. Mcclellan at 35w 3d gestational age. 2. Due to advanced gestational age and positive some anatomyremains suboptimally visualized. No anomalies commonly detected byultrasound were identified within the limits of ultrasound. 3. Growth parameters and estimated weight were at the 95th% forgestational age. 4. The amniotic fluid volume appeared normal. Dunia Salas MD [facility] US ORDERABLE S [facility] US Comprehensive Single (11/18/2023 12:46 PM [...] ? Study Date: ??11/18/2023 11:42am Pat. NO: ??[id number] ?Referring ??MD: JERI LIU Site: ? Shank Faker: Gini Jioner RDMS : ??1990 ?Age: ?? 33 ----- [...] lb 4 ?oz EFW by ? Hadlock ([id number]-FL) Head / Face / Neck Biometry: Itinerant Teacher Assistant ?5.4 ? mm CM ? 9.8 ? mm Nasal bone ? 12.8 ?mm ANATOMY ----- The following structures appear normal: Head / Neck ? Cranium. Head size. Head shape. Lateral ventricles. Choroid plexus. Midline falx. Cavum septi pellucidi. Cerebellum. Cisterna magna. ? Parenchyma. Thalami. Vermis. ? Neck. Face ? Lips. Nose. Orbits. Lens. Heart / Thorax ?4-chamber view. LVOT view. 3- vessel view. 1-rzrbst-hzgwrtq view. Situs. Aortic arch view. Bicaval view. [...] and communicating with other health child care counselor and/or care coordination. Procedure Note Dunia Salas MD - 11/18/2023 Comprehensive ----- Pat. Name: ORLANDO VARGAS Study Date: 11/18/2023 11:42am Pat. NO: [id number] Referring MD: JERI LIU Site: Shank Faker: Gini Joiner RDMS : 1990 Age: 33 [...] EFW (lb,oz) 5 lb 4oz EFW by Hadlock([id number]) Head / Face / Neck Biometry: Itinerant Teacher Assistant 5.4mm CM 9.8mm Nasal bone 12.8mm ANATOMY ----- The following structures appear normal: Head / Neck Cranium. Head size. Head shape.Lateral ventricles. Choroid plexus. Midline falx. Cavum septi pellucidi.Cerebellum. Cisterna magna. Parenchyma. Thalami. Vermis. Neck. Face Lips. Nose. Orbits. Lens. Heart / Thorax 4-chamber view. LVOT view. 3-vesselview. 5-xnhjre-zefcwtq view. Situs. Aortic arch view. Bicaval view.Superior [...] record, andcommunicating with other health child care counselor and/or carecoordination. IMPRESSION ----- 1. Mcclellan at [...] amniotic fluid volume appeared normal. Jeri RIOS [facility] ORDERAB LES from Last 3 Months Care Teams Certified Surgical Technologist Relationship Specialty Start Date End Date Jeri Liu APRN CNM [facility] [address] [place] [address] PCP - General 11/17/23
--- OUTSIDE RECORDS SUMMARY | 2023-12-19 15:46 | XMS_ITS | Encounter Summary ---
Author Organization [facility] Address [address] [place] [address] Care Team Providers Care Senior Sales Engineer Name Role Phone Jeri Liu APRN [facility] Primary Care Provider +1- [phone] Reason for Visit * Diagnostic Imaging Ultrasound (Routine) - Pending Review Specialty Diagnoses / Procedures Referred By Jef t Referred To Contact Radiology. Diagnoses related condition, antepartum Procedures MFM US Comprehensive Single Jeri Liu APRN CNM [facility] [address] [place] [address] Referral ID Status Reason Start Date Expiration Date V isits Requested Visits Authorized [id number] Pending Review 11/17/2023 11/16/2024 1 1 Encounter Details Date Type Department Care Team (Latest Contact Info) Description 11/18/2023 11:33 AM CDT - 11/18/2023 11:59 PM CDT Hospital Encounter [facility] Maternal Medicine Center [place] [address] [facility] [address] [place] [address] Dunia Salas MD [address] [place] [address] [address] [place] [address] Discharge Disposition: Home or Self [...] Procedure Name Priority Date/Time Associated Diagnosis Comments [facility] US COMPREHENSIVE SINGLE Routine 11/18/2023 12:46 PM CDT related condition, antepartum documented in this encounter Results * [facility] US Comprehensive Single (11/18/2023 12:46 PM [...] ? Study Date: ??11/18/2023 11:42am Pat. NO: ??[id number] ?Referring ??MD: JERI LIU Site: ? Stencil Typist: Gini Joiner RDMS : ??1990 ?Age: ?? [...] lb 4 ?oz EFW by ? Hadlock ([id number]-FL) Head / Face / Neck Biometry: Java Tech ?5.4 ? mm CM ? 9.8 ? mm Nasal bone ? 12.8 ?mm ANATOMY ----- The following structures appear normal: Head / Neck ? Cranium. Head size. Head shape. Lateral ventricles. Choroid plexus. Midline falx. Cavum septi pellucidi. Cerebellum. Cisterna magna. ? Parenchyma. Thalami. Vermis. ? Neck. Face ? Lips. Nose. Orbits. Lens. Heart / Thorax ?4-chamber view. LVOT view. 3- vessel view. 8-nubqru-nmomqtc view. Situs. Aortic arch view. Bicaval view. [...] medical record, and communicating with other health livestock caretaker and/or care coordination. Procedure Note Dunia Salas MD - 11/18/2023 Comprehensive ----- Pat. Name: ORLANDO VARGAS Study Date: 11/18/2023 11:42am Pat. NO: [id number] Referring MD: JERI LIU Site: Stencil Typist: Gini Joiner RDMS : 1990 Age: 33 [...] EFW (lb,oz) 5 lb 4oz EFW by Hadlock([id number]) Head / Face / Neck Biometry: Java Tech 5.4mm CM 9.8mm Nasal bone 12.8mm ANATOMY ----- The following structures appear normal: Head / Neck Cranium. Head size. Head shape.Lateral ventricles. Choroid plexus. Midline falx. Cavum septi pellucidi.Cerebellum. Cisterna magna. Parenchyma. Thalami. Vermis. Neck. Face Lips. Nose. Orbits. Lens. Heart / Thorax 4-chamber view. LVOT view. 3-vesselview. 1-sjhfuf-ygjgahx view. Situs. Aortic arch view. Bicaval view.Superior [...] electronic medical record, andcommunicating with other health livestock caretaker and/or carecoordination. IMPRESSION ----- 1. Mcclellan at [...] volume appeared normal. Jeri Liu APRN, CNM [facility] US ORDERAB LES documented in this encounter Visit Diagnoses Not on filedocumented in this encounter Care Teams Senior Sales Engineer Relationship Specialty Start Date End Date [place] [address] PCP - General 11/17/23 documented as of this encounter
--- OUTSIDE RECORDS SUMMARY | 2023-12-19 15:46 | XMS_ITS | Encounter Summary ---
Author Organization [place] Address [address] [place] [address]. [place] [address] Care Team Providers Care Field Coil Winder Name Role Phone AlexaJeri ANNAMARIA [facility] Primary Care Provider +1- [phone] Reason for Referral * Diagnostic Imaging Ultrasound (Routine) - Pending Review Specialty Diagnoses / Procedures Referred By Contac t Referred To Contact Radiology. Diagnoses Encounter for follow-up ultrasound of anatomy Procedures [facility] US Comprehensive Single Souleymane/Dunia Ruano MD [address] [place] [id number] Referral ID Status Reason Start Date Expiration Date V isits Requested Visits Authorized [id number] Pending Review 11/18/2023 11/17/2024 1 1 Reason for Visit * Diagnostic Imaging Ultrasound (Routine) - Pending Review Specialty Diagnoses / Procedures Referred By Contac t Referred To Contact Radiology. Diagnoses Encounter for follow-up ultrasound of anatomy Procedures [facility] US Jeny Comer/Dunia Ruano MD [address] [facility] [address] [address] Referral ID Status Reason Start Date Expiration Date V isits Requested Visits Authorized [id number] Pending Review 11/18/2023 11/17/2024 1 1 Encounter Details Date Type Department Care Team (Latest Contact Info) Description 12/09/2023 10:11 AM CDT - 12/09/2023 11:59 PM CDT Hospital Encounter [facility] Maternal Medicine [facility] [address] [facility] [address] [place] [address] Jannet Marmolejo MD [address] [facility] [address] [place] [address] Encounter for follow-up ultrasound of [...] Procedure Name Priority Date/Time Associated Diagnosis Comments [facility] US COMPREHENSIVE SINGLE F/U Routine 12/09/2023 11:03 AM CDT Encounter for follow-up ultrasound of anatomy documented in this encounter Results * [facility] US Comprehensive Single F/U (12/09/2023 11:03 AM [...] ? Study Date: ??12/09/2023 10:19am Pat. NO: ??[id number] ?Referring ??MD: JERI LIU Site: ? Copy Manager: Gini Joiner RDMS : ??1990 ?Age: ?? [...] lb 3 ?oz EFW by ? Hadlock ([id number]) Head / Face / Neck Biometry: Public Works Supervisor ?5.3 ? mm CM ? 8.4 ? mm ANATOMY ----- The following structures appear normal: Head / Neck ? Cranium. Head size. Head shape. Lateral ventricles. Midline falx. Cavum septi pellucidi. Cerebellum. Cisterna magna. Thalami. Face ? Lips. Nose. Heart / Thorax ?4-chamber view. RVOT view. LVOT view. 3-aatvwo-fwnbvvf view. ? Diaphragm. Abdomen ? Stomach. Kidneys. [...] medical record, and communicating with other health critical care nurse and/or care coordination. Procedure Note Jannet Marmolejo MD - 12/09/2023 Comp Follow Up ----- Pat. Name: ORLANDO VARGAS Study Date: 12/09/2023 10:19am Pat. NO: [id number] Referring MD: JERI LIU Site: Copy Manager: Gini Joiner RDMS : 1990 Age: 33 [...] EFW (lb,oz) 7 lb 3oz EFW by Hadlock([id number]) Head / Face / Neck Biometry: Public Works Supervisor 5.3mm CM 8.4mm ANATOMY ----- The following structures appear normal: Head / Neck Cranium. Head size. Head shape.Lateral ventricles. Midline falx. Cavum septi pellucidi. Cerebellum.Cisterna magna. Thalami. Face Lips. Nose. Heart / Thorax 4-chamber view. RVOT view. LVOT view.8-vtiwix-suwippx view. Diaphragm. Abdomen Stomach. Kidneys. Bladder. Spine [...] and 8lb 9oz babies. Her was also [id number]. This baby feels bigger to her than her previous. She has passed her glucose screening. Discussed inthe absence of diabetes is not indicated based solely onfetal size until the EFW > 5000g. We did discuss consideration for delivery at 39 weeks. Return to primary provider for continued care. If you have questions regarding today's evaluation or if [facility] can be [facility], please contact the [facility]. anomalies may be present but not detected I spent a total of 10 minutes on the date of this encounter includingpreparing to see the patient (reviewing medical records/tests), counselingand discussing the plan of care, documenting the visit in the electronic medical record, andcommunicating with other health critical care nurse and/or carecoordination. IMPRESSION ----- 1. Mcclellan at 35w 3d gestational age. 2. Due to advanced gestational age and positive some anatomyremains suboptimally visualized. No anomalies commonly detected byultrasound were identified within the limits of ultrasound. 3. Growth parameters and estimated weight were at the 95th% forgestational age. 4. The amniotic fluid volume appeared normal. Dunia Salas MD IMG [facility] US ORDERABLE S documented in this encounter Visit Diagnoses Diagnosis Encounter for follow-up ultrasound of anatomy documented in this encounter Care Teams Field Coil Winder Relationship Specialty Start Date End Date Jeri Liu APRN CNM [address] [address] PCP - General 11/17/23 documented as of this encounter
--- OUTSIDE RECORDS SUMMARY | 2023-12-19 15:46 | XMS_ITS | Encounter Summary ---
Author Organization [place] Address [address] [place] [address]. [place] [address] Care Team Providers Care Doctor Of Nursing Practice Name Role Phone Gerda Liu APRN, CNM Primary Care Provider [phone]- [phone] Reason for Visit * Reason Comments Ultrasound L2- Increased CSF wi thin posterior fossa, MCI Encounter Details Date Type Department Care Team (Late st Contact Info) Description 11/17/2023 PRE VISIT [facility] Maternal Medicine Center [place] [address] [facility] [address] [place] [address] Cecy Bedoya RN Ultrasound (L2- [...] on filedocumented in this encounter Care Teams Doctor Of Nursing Practice Relationship Specialty Start Date End Date Gerda Liu APRN CNM [facility] [address] [place] [address] PCP - General 11/17/23 documented as of this encounter
--- OUTSIDE RECORDS SUMMARY | 2023-12-19 15:46 | XMS_ITS | Encounter Summary ---
Author Organization [place] Address [address] [place] [address] Care Team Providers Care Screwhead Polisher Name Role Phone AlexaJeri ANNAMARIA [facility] Primary Care Provider +1- [phone] Reason for Referral * Diagnostic Imaging Ultrasound (Routine) - Pending Review Specialty Diagnoses / Procedures Referred By Contac t Referred To Contact Radiology. Diagnoses Encounter for follow-up ultrasound of anatomy Procedures [facility] US Comprehensive Single F/U Dunia Salas MD [address] [place] [address] [place] [address] Referral ID Status Reason Start Date Expiration Date V isits Requested Visits Authorized [id number] Pending Review 11/18/2023 11/17/2024 1 1 Reason for Visit * Reason Comments Ultrasound L2- Increased CSF wi thin posterior fossa, MCI Encounter Details Date Type Department Care Team (Late st Contact Info) Description 11/18/2023 12:15 PM CDT Office Visit [facility] Maternal Medicine [facility] [place] [address] [facility] [address] [place] [address] Dunia Salas MD [address] [place] [place] [address] Encounter for follow-up ultrasound of [...] PM CDT Patient reports good movement, reports Hildebran Demarco contractions, denies leaking of fluid, or bleeding. SBAR given to KASI MAE, see their note in Epic. documented in this encounter Plan of Treatment Not on file documented as of this encounter Procedures Procedure Name Priority Date/Time Associated Diagnosis Comments [facility] COMPREHENSIVE SINGLE Routine 11/18/2023 12:46 PM CDT related condition, antepartum documented in this encounter Results * [facility] Comprehensive Single F/U (12/09/2023 11:03 AM CDT) [...] ? Study Date: ??12/09/2023 10:19am Pat. NO: ??[id number] ?Referring ??MD: JERI ILU Site: ? Machinist First Class: Gini Joiner RDMS : ??1990 ?Age: ?? [...] ? 01/02/2024 Assigned dating ?based on the [facility], selected on 12/09/2023 ? 35 w + [...] lb 3 ?oz EFW by ? Hadlock ([id number]) Head / Face / Neck Biometry: Catalyst Impregnator ?5.3 ? mm CM ? 8.4 ? mm ANATOMY ----- The following structures appear normal: Head / Neck ? Cranium. Head size. Head shape. Lateral ventricles. Midline falx. Cavum septi pellucidi. Cerebellum. Cisterna magna. Thalami. Face ? Lips. Nose. Heart / Thorax ?4-chamber view. RVOT view. LVOT view. 4-wsrkvo-luqvljr view. ? Diaphragm. Abdomen ? Stomach. Kidneys. [...] medical record, and communicating with other health interior plant caretaker and/or care coordination. Procedure Note Jannet Marmolejo MD - 12/09/2023 Comp Follow Up ----- Pat. Name: ORLANDO PLUMMER Study Date: 12/09/2023 10:19am Pat. NO: [id number] Referring MD: JERI LIU Site: Machinist First Class: Gini Joiner RDMS : 1990 Age: 33 [...] EFW (lb,oz) 7 lb 3oz EFW by Hadlock([id number]) Head / Face / Neck Biometry: Catalyst Impregnator 5.3mm CM 8.4mm ANATOMY ----- The following structures appear normal: Head / Neck Cranium. Head size. Head shape.Lateral ventricles. Midline falx. Cavum septi pellucidi. Cerebellum.Cisterna magna. Thalami. Face Lips. Nose. Heart / Thorax 4-chamber view. RVOT view. LVOT view.7-csjpcl-czpwvqg view. Diaphragm. Abdomen Stomach. Kidneys. Bladder. Spine [...] and 8lb 9oz babies. Her was also [id number]. This baby feels bigger to her than [...] electronic medical record, andcommunicating with other health interior plant caretaker and/or carecoordination. IMPRESSION ----- 1. Mcclellan at 35w 3d gestational age. 2. Due to advanced gestational age and positive some anatomyremains suboptimally visualized. No anomalies commonly detected byultrasound were identified within the limits of ultrasound. 3. Growth parameters and estimated weight were at the 95th% forgestational age. 4. The amniotic fluid volume appeared normal. Dunia Salas MD Ovi [facility] US ORDERABLE S * [facility] Comprehensive Single (11/18/2023 12:46 PM CDT) Anatomical [...] ? Study Date: ??11/18/2023 11:42am Pat. NO: ??[id number] ?Referring ??MD: JERI LIU Site: ? Machinist First Class: Gini Joiner RDMS : ??1990 ?Age: ?? [...] lb 4 ?oz EFW by ? Hadlock ([id number]-FL) Head / Face / Neck Biometry: Catalyst Impregnator ?5.4 ? mm CM ? 9.8 ? mm Nasal bone ? 12.8 ?mm ANATOMY ----- The following structures appear normal: Head / Neck ? Cranium. Head size. Head shape. Lateral ventricles. Choroid plexus. Midline falx. Cavum septi pellucidi. Cerebellum. Cisterna magna. ? Parenchyma. Thalami. Vermis. ? Neck. Face ? Lips. Nose. Orbits. Lens. Heart / Thorax ?4-chamber view. LVOT view. 3- vessel view. 4-hhbdxw-upexskt view. Situs. Aortic arch view. Bicaval view. [...] medical record, and communicating with other health interior plant caretaker and/or care coordination. Procedure Note Dunia Salas MD - 11/18/2023 Comprehensive ----- Pat. Name: ORLANDO PLUMMER Study Date: 11/18/2023 11:42am Pat. NO: [id number] Referring MD: JERI LIU Site: Machinist First Class: Gini Joiner RDMS : 1990 Age: 33 [...] EFW (lb,oz) 5 lb 4oz EFW by Hadlock([id number]) Head / Face / Neck Biometry: Catalyst Impregnator 5.4mm CM 9.8mm Nasal bone 12.8mm ANATOMY ----- The following structures appear normal: Head / Neck Cranium. Head size. Head shape.Lateral ventricles. Choroid plexus. Midline falx. Cavum septi pellucidi.Cerebellum. Cisterna magna. Parenchyma. Thalami. Vermis. Neck. Face Lips. Nose. Orbits. Lens. Heart / Thorax 4-chamber view. LVOT view. 3-vesselview. 4-fgmbjx-nfouhzq view. Situs. Aortic arch view. Bicaval view.Superior [...] electronic medical record, andcommunicating with other health interior plant caretaker and/or carecoordination. IMPRESSION ----- 1. Mcclellan [...] volume appeared normal. Jeri Liu APRN, CNM [facility] US ORDERAB LES documented in this encounter Visit Diagnoses Diagnosis Encounter for follow-up ultrasound of anatomy- Primary related condition, antepartum Encounter for follow-up ultrasound of anatomy documented in this encounter Care Teams Screwhead Polisher Relationship Specialty Start Date End Date Jeri Liu APRN CNM [address] [address] PCP - General 11/17/23 documented as of this encounter
--- OUTSIDE RECORDS SUMMARY | 2023-12-19 15:46 | XMS_ITS | Clinical Summary ---
Author Organization [place] Address [address] [place] [address]. [place] [address] Care Team Providers Care News Intern Name Role Phone ManeJeri bryan ANNAMARIA [facility] Primary Care Provider +1- [phone] Allergies Active Allergy Reactions Criticality Noted Date Comments Sulfa Antibiotics 05/30/2008 Noted in 05/28/08 ER Encounters Date Type Department Care Team Description 12/09/2023 10:45 AM CDT Office Visit [facility] Medicine [facility] [address] [employer] [facility] [address] [place] [address] Jannet [place]olejo MD related condition, antepartum (Primary Dx); macrosomia during in third trimester, single or unspecified fetus 12/09/2023 10:11 AM CDT - 12/09/2023 11:59 PM CDT Hospital Encounter [facility] Maternal Medicine [facility] [address] [facility] [address] [place] [address] Jannet Marmolejo MD Encounter for follow-up ultrasound of anatomy Discharge Disposition: Home or Self Care 12/09/2023 Travel 11/18/2023 12:15 PM CDT Office Visit [facility] Medicine [facility] [address] [facility] [address] [place] [address] Dunia Salas MD Encounter for follow-up ultrasound of anatomy (Primary Dx); related condition, antepartum 11/18/2023 11:33 AM CDT - 11/18/2023 11:59 PM CDT Hospital Encounter [facility] Maternal Medicine [facility] [address] [facility] [address] [place] [address] Dunia Salas MD Discharge Disposition: Home or Self Care 11/18/2023 Travel 11/17/2023 Medical Correspondence [facility] [address] [facility] [place] [address] Scan, Non-Provider 11/17/[address] [facility] Maternal Medicine [place] [address] [facility] [address] [place] [address] Cecy Bedoya RN Ultrasound (L2- Increased CSF within posterior fossa, MCI) 11/17/[address] [facility] Maternal Medicine [facility] [address] [facility] [address] [place] [address] Jeri Liu APRN CNM related condition, antepartum [...] Procedure Name Priority Date/Time Associated Diagnosis Comments [facility] US COMPREHENSIVE SINGLE F/U Routine 12/09/2023 11:03 AM CDT Encounter for follow-up ultrasound of anatomy [facility] US COMPREHENSIVE SINGLE Routine 11/18/2023 12:46 PM CDT related condition, antepartum from Last 3 Months Results * [facility] US Comprehensive Single F/U (12/09/2023 11:03 [...] ? Study Date: ??12/09/2023 10:19am Pat. NO: ??[id number] ?Referring ??MD: JERI LIU Site: ? Scaffolder: Gini Joiner RDMS : ??1990 ?Age: ?? [...] lb 3 ?oz EFW by ? Hadlock ([id number]) Head / Face / Neck Biometry: Tire Mechanic ?5.3 ? mm CM ? 8.4 ? mm ANATOMY ----- The following structures appear normal: Head / Neck ? Cranium. Head size. Head shape. Lateral ventricles. Midline falx. Cavum septi pellucidi. Cerebellum. Cisterna magna. Thalami. Face ? Lips. Nose. Heart / Thorax ?4-chamber view. RVOT view. LVOT view. 9-bpjdea-kidwzgt view. ? Diaphragm. Abdomen ? Stomach. Kidneys. [...] medical record, and communicating with other health landcare facilitator and/or care coordination. Procedure Note Jannet Marmolejo MD - 12/09/2023 Comp Follow Up ----- Pat. Name: NAVYA VARGAS Study Date: 12/09/2023 10:19am Pat. NO: [id number] Referring MD: JERI LIU Site: Scaffolder: Gini Joiner RDMS : 1990 Age: 33 [...] EFW (lb,oz) 7 lb 3oz EFW by Hadlock([id number]-TA-GI-FL) Head / Face / Neck Biometry: Tire Mechanic 5.3mm CM 8.4mm ANATOMY ----- The following structures appear normal: Head / Neck Cranium. Head size. Head shape.Lateral ventricles. Midline falx. Cavum septi pellucidi. Cerebellum.Cisterna magna. Thalami. Face Lips. Nose. Heart / Thorax 4-chamber view. RVOT view. LVOT view.9-fqjfou-ufdpjvz view. Diaphragm. Abdomen Stomach. Kidneys. Bladder. Spine [...] and 8lb 9oz babies. Her was also [id number]. This baby feels bigger to her than her previous. She has passed her glucose screening. Discussed inthe absence of diabetes is not indicated based solely onfetal size until the EFW > 5000g. We did discuss consideration for delivery at 39 weeks. Return to primary provider for continued care. If you have questions regarding today's evaluation or if we can be [facility], please contact the M[facility]. anomalies may be present but not detected I spent a total of 10 minutes on the date of this encounter includingpreparing to see the patient (reviewing medical records/tests), counselingand discussing the plan of care, documenting the visit in the electronic medical record, andcommunicating with other health landcare facilitator and/or carecoordination. IMPRESSION ----- 1. Mcclellan at 35w 3d gestational age. 2. Due to advanced gestational age and positive some anatomyremains suboptimally visualized. No anomalies commonly detected byultrasound were identified within the limits of ultrasound. 3. Growth parameters and estimated weight were at the 95th% forgestational age. 4. The amniotic fluid volume appeared normal. Dunia Salas MD Ovi [facility] US ORDERABLE S * [facility] US Comprehensive Single (11/18/2023 12:46 PM [...] ? Study Date: ??11/18/2023 11:42am Pat. NO: ??[id number] ?Referring ??MD: JERI LIU Site: ? Scaffolder: Gini Joiner RDMS : ??1990 ?Age: ?? [...] lb 4 ?oz EFW by ? Hadlock ([id number]-OD-[id number]-FL) Head / Face / Neck Biometry: Tire Mechanic ?5.4 ? mm CM ? 9.8 ? mm Nasal bone ? 12.8 ?mm ANATOMY ----- The following structures appear normal: Head / Neck ? Cranium. Head size. Head shape. Lateral ventricles. Choroid plexus. Midline falx. Cavum septi pellucidi. Cerebellum. Cisterna magna. ? Parenchyma. Thalami. Vermis. ? Neck. Face ? Lips. Nose. Orbits. Lens. Heart / Thorax ?4-chamber view. LVOT view. 3- vessel view. 1-opybiu-krglwpg view. Situs. Aortic arch view. Bicaval view. [...] medical record, and communicating with other health landcare facilitator and/or care coordination. Procedure Note Dunia Salas MD - 11/18/2023 Comprehensive ----- Pat. Name: NAVYA VARGAS Study Date: 11/18/2023 11:42am Pat. NO: [id number] Referring MD: JERI LIU Site: Scaffolder: Gini Joiner RDMS : 1990 Age: 33 [...] EFW (lb,oz) 5 lb 4oz EFW by Hadlock([id number]-[id number]-FL) Head / Face / Neck Biometry: Tire Mechanic 5.4mm CM 9.8mm Nasal bone 12.8mm ANATOMY ----- The following structures appear normal: Head / Neck Cranium. Head size. Head shape.Lateral ventricles. Choroid plexus. Midline falx. Cavum septi pellucidi.Cerebellum. Cisterna magna. Parenchyma. Thalami. Vermis. Neck. Face Lips. Nose. Orbits. Lens. Heart / Thorax 4-chamber view. LVOT view. 3-vesselview. 1-phmqaq-odddcbz view. Situs. Aortic arch view. Bicaval view.Superior [...] electronic medical record, andcommunicating with other health landcare facilitator and/or carecoordination. IMPRESSION ----- 1. Mcclellan at [...] volume appeared normal. Jeri Liu APRN, CNM [facility] ORDERAB LES from Last 3 Months Care Teams News Intern Relationship Specialty Start Date End Date Jeri Liu APRN CNM [facility] [address] [place] [address] PCP - General 11/17/23
--- OUTSIDE RECORDS SUMMARY | 2023-12-19 15:46 | XMS_ITS | Encounter Summary ---
Author Organization [place] Address [address] [facility] [place] [address] Care Team Providers Care Prisoner Classification Interviewer Name Role Phone Alexa Gerda [facility] Primary Care Provider +1- [phone] Reason for Visit * Reason Comments Ultrasound RL2-subopt Encounter Details Date Type Department Care Team (Late st Contact Info) Description 12/09/2023 10:45 AM CDT Office Visit [facility] Maternal Medicine Center [place] [address] [facility] [address] [place] [address] Jannet Marmolejo MD [address] [facility] [address] [place] [address] related condition, antepartum (Primary Dx); [...] in the Maternal- Medicine Center at the [facility] today. For a detailed report of the ultrasound examination, please see the ultrasound report which can be found under the imaging tab. If you have questions regarding today's evaluation or if we can be of further service, please contact the Maternal- Medicine Center. Jannet Marmolejo MD Drive Away Driver, SCREEN PRINTING MACHINE OPERATOR HELPER Maternal- Medicine [phone] (Pager) documented in this encounter Nursing Notes [...] fetus documented in this encounter Care Teams Prisoner Classification Interviewer Relationship Specialty Start Date End Date Gerda Liu APRN CNM [address] [address] PCP - General 11/17/23 documented as of this encounter
--- OUTSIDE RECORDS SUMMARY | 2023-12-19 15:46 | XMS_ITS | Encounter Summary ---
Author Organization [place] Address [address] [place] [address]. [place] [address] Care Team Providers Care Mathematics Professor Name Role Phone Jeri Liu APRN, CNM Primary Care Provider [phone]- [phone] Reason for Referral * Diagnostic Imaging Ultrasound (Routine) - Pending Review Specialty Diagnoses / Procedures Referred By Contac t Referred To Contact Radiology. Diagnoses related condition, antepartum Procedures [facility] US Comprehensive Single Jeri Liu APRN CNM [facility] [address] [place] [address] Referral ID Status Reason Start Date Expiration Date V isits Requested Visits Authorized [id number] Pending Review 11/17/2023 11/16/2024 1 1 * Consultation (Routine: Next available opening) - Pending Review Specialty Diagnoses / Procedures Referred By Contac t Referred To Contact Diagnoses related condition, antepartum Jeri Liu APRN CNM [facility] [address] [place] [address] [facility] [address] [facility] [address] [place] [address] Referral ID Status Reason Start Date Expiration Date V isits Requested Visits Authorized [id number] Pending Review 11/17/2023 11/16/2024 1 1 Question Answer Preferred Location: [facility] [place] [facility] 01/10/2024 Ultrasound Comprehensive US (>than 18 weeks GA) US PROC NONE MFM Issue OTHER (enter details in Comments) - increased CSF w/in posterior fossa MFM MD Consultation (unrelated to Ultrasound findings): Yes Inflammatory Bowel Disease Clinic: Joint MFM and GI Consultation: No Chronic Kidney Disease: Joint MFM and Nephrology Consultation No Cardio-Obstetrics: Joint MFM and Cardiology Consultation No fax [facility] - Jeri Liu - Additional Information: no [...] (Latest Contact Info) Description 11/17/2023 Transcribe Orders [facility] M[facility] Medicine [facility] [place] [address] [facility] [address] [place] [address] Jeri Liu APRN CNM [address] [address] related condition, antepartum (Primary Dx) Social History [...] documented as of this encounter Results * [facility] US Comprehensive Single (11/18/2023 12:46 PM [...] ? Study Date: ??11/18/2023 11:42am Pat. NO: ??[id number] ?Referring ??MD: JERI LIU Site: ? Insert Cutter: Gini Joiner RDMS : ??1990 ?Age: ?? [...] lb 4 ?oz EFW by ? Hadlock ([id number]) Head / Face / Neck Biometry: Powerhouse Mechanic ?5.4 ? mm CM ? 9.8 [...] ?4-chamber view. LVOT view. 3- vessel view. 1-coeski-cujnqbl view. Situs. Aortic arch view. Bicaval view. [...] medical record, and communicating with other health disabilities caregiver and/or care coordination. Procedure Note Dunia Salas MD - 11/18/2023 Comprehensive ----- Pat. Name: ORLANDO VARGAS Study Date: 11/18/2023 11:42am Pat. NO: [id number] Referring MD: JERI LIU Site: Insert Cutter: Gini Joiner RDMS : 1990 Age: 33 [...] EFW (lb,oz) 5 lb 4oz EFW by Hadlock([id number]) Head / Face / Neck Biometry: Powerhouse Mechanic 5.4mm CM 9.8mm Nasal bone 12.8mm ANATOMY ----- The following structures appear normal: Head / Neck Cranium. Head size. Head shape.Lateral ventricles. Choroid plexus. Midline falx. Cavum septi pellucidi.Cerebellum. Cisterna magna. Parenchyma. Thalami. Vermis. Neck. Face Lips. Nose. Orbits. Lens. Heart / Thorax 4-chamber view. LVOT view. 3-vesselview. 8-xsfilh-aoqlxib view. Situs. Aortic arch view. Bicaval view.Superior [...] electronic medical record, andcommunicating with other health disabilities caregiver and/or carecoordination. IMPRESSION ----- 1. Mcclellan at [...] volume appeared normal. Jeri Liu APRN, CNM [facility] US ORDERAB LES documented in this encounter Visit Diagnoses Diagnosis related condition, antepartum- Primary documented in this encounter Care Teams Mathematics Professor Relationship Specialty Start Date End Date Jeri Liu APRN CNM [address] [address] PCP - General 11/17/23 documented as of this encounter
--- OUTSIDE RECORDS SUMMARY | 2023-12-19 15:46 | XMS_ITS | Encounter Summary ---
Author Organization [place] Address [address] [place] [address]. [place] [address] Care Team Providers Care Lidder Name Role Phone Unavailable Primary Care Provider Unavailabl e Encounter Details Date Type Department Care Team (Late st Contact Info) Description 05/28/2008 4:15 PM [facility] [address] [place] [id number] Bunny Hernández MD [address] [place], [place] [id number] Social History Tobacco Use Types Packs/Day Years [...]
== END 2023-12-15 12:13 | disposition home or self-care (01) ==
LOC: NFLDREF 12-19 15:44
PROVIDERS: Visit Provider Advanced Practice Midwife
DX: Z34.93 Encounter for supervision of normal pregnancy, unspecified, third trimester (principal); O36.63X0 Maternal care for excessive fetal growth, third trimester, not applicable or unspecified; Z3A.36 36 weeks gestation of pregnancy
CPT/HCPCS: 76816; 76819; 87081; 87653

== ENCOUNTER 2023-12-29 21:41 | Inpatient (IN) | payer BC, SELFPAY ==
--- OUTSIDE RECORDS SUMMARY | 2023-12-29 20:40 | XMS_ITS | Encounter Summary ---
Author Organization [place] Address [address] [facility] [place] [address] Care Team Providers Care Site Promotion Agent Name Role Phone AlexaJeri ANNAMARIA [facility] Primary Care Provider [phone]- [phone] Reason for Referral * Diagnostic Imaging Ultrasound (Routine) - Pending Review Specialty Diagnoses / Procedures Referred By Contac t Referred To Contact Radiology. Diagnoses Encounter for follow-up ultrasound of anatomy Procedures [facility] US Comprehensive Single F/U Dunia Salas MD [address] [place] [address] Referral ID Status Reason Start Date Expiration Date V isits Requested Visits Authorized [id number] Pending Review 11/18/2023 11/17/2024 1 1 Reason for Visit * Reason Comments Ultrasound L2- Increased CSF wi thin posterior fossa, MCI Encounter Details Date Type Department Care Team (Late st Contact Info) Description 11/18/2023 12:15 PM CDT Office Visit [facility] M[facility] Medicine [facility] [place] [address] [facility] [address] [place] [address] Dunia Salas MD [address] [place] [address] Encounter for follow-up ultrasound of [...] PM CDT Patient reports good movement, reports [place] contractions, denies leaking of fluid, or bleeding. SBAR given to KASI MAE, see their note in Epic. documented in this encounter Plan of Treatment Not on file documented as of this encounter Procedures Procedure Name Priority Date/Time Associated Diagnosis Comments [facility] COMPREHENSIVE SINGLE Routine 11/18/2023 12:46 PM CDT related condition, antepartum documented in this encounter Results * [facility] Comprehensive Single F/U (12/09/2023 11:03 AM [...] ? Study Date: ??12/09/2023 10:19am Pat. NO: ??[id number] ?Referring ??MD: JERI LIU Site: ? Curriculum And Instruction Director: Gini Joiner RDMS : ??1990 ?Age: ?? [...] ? 01/02/2024 Assigned dating ?based on the [facility], selected on 12/09/2023 ? 35 w + [...] lb 3 ?oz EFW by ? Hadlock ([id number]-FL) Head / Face / Neck Biometry: Obstetric Anaesthetist ?5.3 ? mm CM ? 8.4 ? mm ANATOMY ----- The following structures appear normal: Head / Neck ? Cranium. Head size. Head shape. Lateral ventricles. Midline falx. Cavum septi pellucidi. Cerebellum. Cisterna magna. Thalami. Face ? Lips. Nose. Heart / Thorax ?4-chamber view. RVOT view. LVOT view. 7-bpddzi-vkcgtwa view. ? Diaphragm. Abdomen ? Stomach. Kidneys. [...] medical record, and communicating with other health manager wound care and/or care coordination. Procedure Note Jannet Marmolejo MD - 12/09/2023 Comp Follow Up ----- Pat. Name: ORLANDO PLUMMER Study Date: 12/09/2023 10:19am Pat. NO: [id number] Referring MD: JERI LIU Site: Curriculum And Instruction Director: Gini Joiner RDMS : 1990 Age: 33 [...] EFW (lb,oz) 7 lb 3oz EFW by Hadlock([id number]) Head / Face / Neck Biometry: Obstetric Anaesthetist 5.3mm CM 8.4mm ANATOMY ----- The following structures appear normal: Head / Neck Cranium. Head size. Head shape.Lateral ventricles. Midline falx. Cavum septi pellucidi. Cerebellum.Cisterna magna. Thalami. Face Lips. Nose. Heart / Thorax 4-chamber view. RVOT view. LVOT view.8-bokepa-bgeezzr view. Diaphragm. Abdomen Stomach. Kidneys. Bladder. Spine [...] and 8lb 9oz babies. Her was also [id number]. This baby feels bigger to her than [...] electronic medical record, andcommunicating with other health manager wound care and/or carecoordination. IMPRESSION ----- 1. Mcclellan at 35w 3d gestational age. 2. Due to advanced gestational age and positive some anatomyremains suboptimally visualized. No anomalies commonly detected byultrasound were identified within the limits of ultrasound. 3. Growth parameters and estimated weight were at the 95th% forgestational age. 4. The amniotic fluid volume appeared normal. Dunia Salas MD Ovi [facility] US ORDERABLE S * [facility] Comprehensive Single (11/18/2023 12:46 PM CDT) [...] ? Study Date: ??11/18/2023 11:42am Pat. NO: ??[id number] ?Referring ??MD: JERI LIU Site: ? Curriculum And Instruction Director: Gini Joiner RDMS : ??1990 ?Age: ?? [...] lb 4 ?oz EFW by ? Hadlock ([id number]-FL) Head / Face / Neck Biometry: Obstetric Anaesthetist ?5.4 ? mm CM ? 9.8 ? mm Nasal bone ? 12.8 ?mm ANATOMY ----- The following structures appear normal: Head / Neck ? Cranium. Head size. Head shape. Lateral ventricles. Choroid plexus. Midline falx. Cavum septi pellucidi. Cerebellum. Cisterna magna. ? Parenchyma. Thalami. Vermis. ? Neck. Face ? Lips. Nose. Orbits. Lens. Heart / Thorax ?4-chamber view. LVOT view. 3- vessel view. 9-habapn-razeawx view. Situs. Aortic arch view. Bicaval view. [...] medical record, and communicating with other health manager wound care and/or care coordination. Procedure Note Dunia Salas MD - 11/18/2023 Comprehensive ----- Pat. Name: ORLANDO PLUMMER Study Date: 11/18/2023 11:42am Pat. NO: [id number] Referring MD: JERI LIU Site: Curriculum And Instruction Director: Gini Joiner RDMS : 1990 Age: 33 [...] EFW (lb,oz) 5 lb 4oz EFW by Hadlock([id number]) Head / Face / Neck Biometry: Obstetric Anaesthetist 5.4mm CM 9.8mm Nasal bone 12.8mm ANATOMY ----- The following structures appear normal: Head / Neck Cranium. Head size. Head shape.Lateral ventricles. Choroid plexus. Midline falx. Cavum septi pellucidi.Cerebellum. Cisterna magna. Parenchyma. Thalami. Vermis. Neck. Face Lips. Nose. Orbits. Lens. Heart / Thorax 4-chamber view. LVOT view. 3-vesselview. 5-wytmab-xarclbp view. Situs. Aortic arch view. Bicaval view.Superior [...] electronic medical record, andcommunicating with other health manager wound care and/or carecoordination. IMPRESSION ----- 1. Mcclellan at [...] volume appeared normal. Jeri Liu APRN, CNM [facility] US ORDERAB LES documented in this encounter Visit Diagnoses Diagnosis Encounter for follow-up ultrasound of anatomy- Primary related condition, antepartum Encounter for follow-up ultrasound of anatomy documented in this encounter Care Teams Site Promotion Agent Relationship Specialty Start Date End Date Jeri Liu APRN CNM [address] [address] PCP - General 11/17/23 documented as of this encounter
--- OUTSIDE RECORDS SUMMARY | 2023-12-29 20:40 | XMS_ITS | Referral Summary ---
Author Organization [place] Address [address] [place] [address]. [place] [address] Care Team Providers Care Base Engineer Name Role Phone Alexa Jeri YIN [facility] Primary Care Provider [phone]- [phone] Jannet Marmolejo MD Unavailable [phone] Encounters Date Type Department Care Team Description 12/09/2023 Travel 12/09/2023 10:45 AM CDT Office Visit [facility] Medicine [facility] [address] [facility] [address] [place] [phone] Jannet Marmolejo MD related condition, antepartum (Primary Dx); macrosomia during in third trimester, single or unspecified fetus 12/09/2023 10:11 AM CDT - 12/09/2023 11:59 PM CDT Hospital Encounter [facility] Maternal Medicine [facility] [address] [facility] [address] [place] [phone] Jannet Marmolejo MD Encounter for follow-up ultrasound of anatomy Discharge Disposition: Home or Self Care 11/18/2023 Travel 11/18/2023 12:15 PM CDT Office Visit [facility] Medicine [facility] [address] [facility] [address] [place] [phone] Dunia Salas MD Encounter for follow-up ultrasound of anatomy (Primary Dx); related condition, antepartum 11/18/2023 11:33 AM CDT - 11/18/2023 11:59 PM CDT Hospital Encounter [facility] Medicine [facility] [address] [place] [address] Dunia Salas MD Discharge Disposition: Home or Self Care 11/17/2023 Medical Correspondence [facility] [address] [facility] [place] [address] Scan, Non-Provider 11/17/2023 PRE VISIT [facility] Medicine [place] [address] [place] [address] Cecy Bedoya RN Ultrasound (L2- Increased CSF within posterior fossa, MCI) 11/17/2023 Transcribe Orders [facility] Medicine [place] [address] [facility] [address] [place] [phone] Jeri Liu APRN CNM related condition, antepartum [...] Procedure Name Priority Date/Time Associated Diagnosis Comments [facility] US COMPREHENSIVE SINGLE F/U Routine 12/09/2023 11:03 AM CDT Encounter for follow-up ultrasound of anatomy [facility] US COMPREHENSIVE SINGLE Routine 11/18/2023 12:46 PM CDT related condition, antepartum from Last 3 Months Results * [facility] US Comprehensive Single F/U (12/09/2023 11:03 [...] ? Study Date: ??12/09/2023 10:19am Pat. NO: ??[id number] ?Referring ??: JERI LIU Site: ? General Practice: Gini Joiner RDMS : ??1990 ?Age: ?? [...] lb 3 ?oz EFW by ? Hadlock ([id number]-FL) Head / Face / Neck Biometry: Longwall Machine Operator Helper ?5.3 ? mm CM ? 8.4 ? mm ANATOMY ----- The following structures appear normal: Head / Neck ? Cranium. Head size. Head shape. Lateral ventricles. Midline falx. Cavum septi pellucidi. Cerebellum. Cisterna magna. Thalami. Face ? Lips. Nose. Heart / Thorax ?4-chamber view. RVOT view. LVOT view. 8-zhnzyl-hbmckzl view. ? Diaphragm. Abdomen ? Stomach. Kidneys. [...] medical record, and communicating with other health acute care physical therapist and/or care coordination. Procedure Note Jannet Marmolejo MD - 12/09/2023 Comp Follow Up ----- Pat. Name: ORLANDO VARGAS Study Date: 12/09/2023 10:19am Pat. NO: [id number] Referring MD: JERI LIU Site: General Practice: Gini Joiner RDMS : 1990 Age: 33 [...] EFW (lb,oz) 7 lb 3oz EFW by Hadlock(OEA-FI-RO-FL) Head / Face / Neck Biometry: Longwall Machine Operator Helper 5.3mm CM 8.4mm ANATOMY ----- The following structures appear normal: Head / Neck Cranium. Head size. Head shape.Lateral ventricles. Midline falx. Cavum septi pellucidi. Cerebellum.Cisterna magna. Thalami. Face Lips. Nose. Heart / Thorax 4-chamber view. RVOT view. LVOT view.4-ymayko-vahvbkt view. Diaphragm. Abdomen Stomach. Kidneys. Bladder. Spine [...] and 8lb 9oz babies. Her was also [id number]. This baby feels bigger to her than [...] electronic medical record, andcommunicating with other health acute care physical therapist and/or carecoordination. IMPRESSION ----- 1. Mcclellan at 35w 3d gestational age. 2. Due to advanced gestational age and positive some anatomyremains suboptimally visualized. No anomalies commonly detected byultrasound were identified within the limits of ultrasound. 3. Growth parameters and estimated weight were at the 95th% forgestational age. 4. The amniotic fluid volume appeared normal. Dunia Salas MD [facility] US ORDERABLE S * [facility] US Comprehensive Single (11/18/2023 12:46 PM [...] ? Study Date: ??11/18/2023 11:42am Pat. NO: ??[id number] ?Referring ??MD: JERI LIU Site: ? General Practice: Gini Joiner RDMS : ??1990 ?Age: ?? [...] lb 4 ?oz EFW by ? Hadlock ([id number]-[id number]-BS-FL) Head / Face / Neck Biometry: Longwall Machine Operator Helper ?5.4 ? mm CM ? 9.8 ? mm Nasal bone ? 12.8 ?mm ANATOMY ----- The following structures appear normal: Head / Neck ? Cranium. Head size. Head shape. Lateral ventricles. Choroid plexus. Midline falx. Cavum septi pellucidi. Cerebellum. Cisterna magna. ? Parenchyma. Thalami. Vermis. ? Neck. Face ? Lips. Nose. Orbits. Lens. Heart / Thorax ?4-chamber view. LVOT view. 3- vessel view. 2-ddwsrs-xcrjtwa view. Situs. Aortic arch view. Bicaval view. [...] medical record, and communicating with other health acute care physical therapist and/or care coordination. Procedure Note Dunia Salas MD - 11/18/2023 Comprehensive ----- Pat. Name: ORLANDO VARGAS Study Date: 11/18/2023 11:42am Pat. NO: [id number] Referring MD: JERI LIU Site: General Practice: Gini Joiner RDMS : 1990 Age: 33 [...] EFW (lb,oz) 5 lb 4oz EFW by Gregg(SHK-QI-RX-FL) Head / Face / Neck Biometry: Longwall Machine Operator Helper 5.4mm CM 9.8mm Nasal bone 12.8mm ANATOMY ----- The following structures appear normal: Head / Neck Cranium. Head size. Head shape.Lateral ventricles. Choroid plexus. Midline falx. Cavum septi pellucidi.Cerebellum. Cisterna magna. Parenchyma. Thalami. Vermis. Neck. Face Lips. Nose. Orbits. Lens. Heart / Thorax 4-chamber view. LVOT view. 3-vesselview. 9-tixdhl-uxnokly view. Situs. Aortic arch view. Bicaval view.Superior [...] electronic medical record, andcommunicating with other health acute care physical therapist and/or carecoordination. IMPRESSION ----- 1. Mcclellan at [...] amniotic fluid volume appeared normal. Jeri RIOS [facility] ORDERAB LES from Last 3 Months Care Teams Base Engineer Relationship Specialty Start Date End Date Jeri Liu APRN CNM [facility] [address] [place] [address] PCP - General 11/17/23 Jannet Marmolejo MD [address] [address] Assigned OBGYN Provider 12/28/23
--- OUTSIDE RECORDS SUMMARY | 2023-12-29 20:40 | XMS_ITS | Encounter Summary ---
Author Organization [place] Address [address] [facility] [place] [address] Care Team Providers Care Vending Machine Host/Hostess Name Role Phone Alexa Gerda [facility] Primary Care Provider [phone]- [phone] Reason for Visit * Reason Comments Ultrasound RL2-subopt Encounter Details Date Type Department Care Team (Late st Contact Info) Description 12/09/2023 10:45 AM CDT Office Visit [facility] Maternal Medicine Center [place] [address] [facility] [address] [place] [address] Jannet Marmolejo MD [address] [place] [address] related condition, antepartum (Primary Dx); [...] in the Maternal- Medicine Center at the [facility] today. For a detailed report of the ultrasound examination, please see the ultrasound report which can be found under the imaging tab. If you have questions regarding today's evaluation or if we can be of further service, please contact the Maternal- Medicine Center. Jannet Marmolejo MD Coat Tailor, CEO [employer] FOUNDER Maternal- Medicine [phone] (Pager) documented in this encounter Nursing Notes [...] fetus documented in this encounter Care Teams Vending Machine Host/Hostess Relationship Specialty Start Date End Date Gerda Liu APRN CNM [address] [address] PCP - General 11/17/23 documented as of this encounter
--- OUTSIDE RECORDS SUMMARY | 2023-12-29 20:40 | XMS_ITS | Clinical Summary ---
Author Organization [place] Address [address] [place] [address]. [place] [address] Care Team Providers Care Ice Plant Operator Name Role Phone Jeri Liu APRN [facility] Primary Care Provider [phone]- [phone] Jannet Marmolejo MD Unavailable [phone] Allergies Active Allergy Reactions Criticality Noted Date Comments Sulfa Antibiotics 05/30/2008 Noted in 05/28/08 ER Encounters Date Type Department Care Team Description 12/09/2023 10:45 AM CDT Office Visit [facility] Medicine [facility] [address] [place] [address] Jannet Marmolejo MD related condition, antepartum (Primary Dx); macrosomia during in third trimester, single or unspecified fetus 12/09/2023 10:11 AM CDT - 12/09/2023 11:59 PM CDT Hospital Encounter [facility] [address] [place] [address] Jannet Marmolejo MD Encounter for follow-up ultrasound of anatomy Discharge Disposition: Home or Self Care 12/09/2023 Travel 11/18/2023 12:15 PM CDT Office Visit [facility] Medicine [facility] [address] [place] [address] Dunia Salas MD Encounter for follow-up ultrasound of anatomy (Primary Dx); related condition, antepartum 11/18/2023 11:33 AM CDT - 11/18/2023 11:59 PM CDT Hospital Encounter [facility] Medicine [facility] [address] [facility] [address] [place] [address] Dunia Salas MD Discharge Disposition: Home or Self Care 11/18/2023 Travel 11/17/2023 Medical Correspondence [facility] Info Mgmt [facility] [address] [place] [address] Scan, Non-Provider 11/17/2023 PRE VISIT [facility] Medicine [place] [address] [facility] [address] [place] [address] Cecy Bedoya RN Ultrasound (L2- Increased CSF within posterior fossa, MCI) 11/17/2023 Transcribe Orders [facility] Medicine [place] [address] [facility] [address] [place] [address] Jeri Liu APRN CNM related condition, antepartum [...] DISCUSSION 06/14/2023 OBGCT (OB) 09/20/2023 COVID-19 Vaccine (2023-2 5 season) 2023 INFLUENZA VACCINE (#1) 2023 2, 01/14/2021, 12/30/2019 GROUP B STREP SCREENING 12/13/2023 DTAP/TDAP/TD IMMUNIZATION [...] patient's age to complete this topic RSV VACCINE (No Doses Required) Completed Procedures Procedure Name Priority Date/Time Associated Diagnosis Comments [facility] US COMPREHENSIVE SINGLE F/U Routine 12/09/2023 11:03 AM CDT Encounter for follow-up ultrasound of anatomy [facility] US COMPREHENSIVE SINGLE Routine 11/18/2023 12:46 PM CDT related condition, antepartum from Last 3 Months Results * [facility] US Comprehensive Single F/U (12/09/2023 11:03 [...] ? Study Date: ??12/09/2023 10:19am Pat. NO: ??[id number] ?Referring ??MD: JERI LIU Site: ? Senior Investment Manager: Gini Joiner RDMS : ??1990 ?Age: [...] lb 3 ?oz EFW by ? Hadlock ([id number]) Head / Face / Neck Biometry: Placement Coordinator ?5.3 ? mm CM ? 8.4 ? mm ANATOMY ----- The following structures appear normal: Head / Neck ? Cranium. Head size. Head shape. Lateral ventricles. Midline falx. Cavum septi pellucidi. Cerebellum. Cisterna magna. Thalami. Face ? Lips. Nose. Heart / Thorax ?4-chamber view. RVOT view. LVOT view. 1-vvtogu-zstvgme view. ? Diaphragm. Abdomen ? Stomach. Kidneys. [...] medical record, and communicating with other health home health care worker and/or care coordination. Procedure Note Jannet Marmolejo MD - 12/09/2023 Comp Follow Up ----- Pat. Name: ORLANDO VARGAS Study Date: 12/09/2023 10:19am Pat. NO: [id number] Referring MD: JERI LIU Site: Senior Investment Manager: Gini Joiner RDMS : 1990 Age: [...] EFW (lb,oz) 7 lb 3oz EFW by Hadlock([id number]) Head / Face / Neck Biometry: Placement Coordinator 5.3mm CM 8.4mm ANATOMY ----- The following structures appear normal: Head / Neck Cranium. Head size. Head shape.Lateral ventricles. Midline falx. Cavum septi pellucidi. Cerebellum.Cisterna magna. Thalami. Face Lips. Nose. Heart / Thorax 4-chamber view. RVOT view. LVOT view.0-devncn-wstyzyh view. Diaphragm. Abdomen Stomach. Kidneys. Bladder. Spine [...] and 8lb 9oz babies. Her was also [id number]. This baby feels bigger to her than her previous. She has passed her glucose screening. Discussed inthe absence of diabetes is not indicated based solely onfetal size until the EFW > 5000g. We did discuss consideration for delivery at 39 weeks. Return to primary provider for continued care. If you have questions regarding today's evaluation or if [facility], please contact the [facility]. anomalies may be present but not detected I spent a total of 10 minutes on the date of this encounter includingpreparing to see the patient (reviewing medical records/tests), counselingand discussing the plan of care, documenting the visit in the electronic medical record, andcommunicating with other health home health care worker and/or carecoordination. IMPRESSION ----- 1. Mcclellan at 35w 3d gestational age. 2. Due to advanced gestational age and positive some anatomyremains suboptimally visualized. No anomalies commonly detected byultrasound were identified within the limits of ultrasound. 3. Growth parameters and estimated weight were at the 95th% forgestational age. 4. The amniotic fluid volume appeared normal. Dunia Salas MD Ovi [facility] US ORDERABLE S * [facility] US Comprehensive Single (11/18/2023 12:46 PM [...] ? Study Date: ??11/18/2023 11:42am Pat. NO: ??[id number] ?Referring ??MD: JERI LIU Site: ? Senior Investment Manager: Gini Joiner RDMS : ??1990 ?Age: [...] lb 4 ?oz EFW by ? Hadlock ([id number]) Head / Face / Neck Biometry: Placement Coordinator ?5.4 ? mm CM ? 9.8 ? mm Nasal bone ? 12.8 ?mm ANATOMY ----- The following structures appear normal: Head / Neck ? Cranium. Head size. Head shape. Lateral ventricles. Choroid plexus. Midline falx. Cavum septi pellucidi. Cerebellum. Cisterna magna. ? Parenchyma. Thalami. Vermis. ? Neck. Face ? Lips. Nose. Orbits. Lens. Heart / Thorax ?4-chamber view. LVOT view. 3- vessel view. 0-rjnpjp-diyqceg view. Situs. Aortic arch view. Bicaval view. [...] medical record, and communicating with other health home health care worker and/or care coordination. Procedure Note Dunia Salas MD - 11/18/2023 Comprehensive ----- Pat. Name: ORLANDO VARGAS Study Date: 11/18/2023 11:42am Pat. NO: [id number] Referring MD: JERI LIU Site: Senior Investment Manager: Gini Joiner RDMS : 1990 Age: [...] EFW (lb,oz) 5 lb 4oz EFW by Hadlock([id number]) Head / Face / Neck Biometry: Placement Coordinator 5.4mm CM 9.8mm Nasal bone 12.8mm ANATOMY ----- The following structures appear normal: Head / Neck Cranium. Head size. Head shape.Lateral ventricles. Choroid plexus. Midline falx. Cavum septi pellucidi.Cerebellum. Cisterna magna. Parenchyma. Thalami. Vermis. Neck. Face Lips. Nose. Orbits. Lens. Heart / Thorax 4-chamber view. LVOT view. 3-vesselview. 1-cvbzmy-aiwptsa view. Situs. Aortic arch view. Bicaval view.Superior [...] electronic medical record, andcommunicating with other health home health care worker and/or carecoordination. IMPRESSION ----- 1. Mcclellan at [...] amniotic fluid volume appeared normal. Jeri Liu APRN [facility] ORDERAB LES from Last 3 Months Care Teams Ice Plant Operator Relationship Specialty Start Date End Date Jeri Liu APRN CNM [facility] [address] [place] [address] PCP - General 11/17/23 Jannet Marmolejo MD [address] [phone] Assigned OBGYN Provider 12/28/23
--- OUTSIDE RECORDS SUMMARY | 2023-12-29 20:40 | XMS_ITS | Encounter Summary ---
Author Organization [place] Address [address] [place] [address]. [place] [address] Care Team Providers Care Manager Utilization Management Name Role Phone AlexaJeri [facility]IA [facility] Primary Care Provider [phone]- [phone] Reason for Referral * Diagnostic Imaging Ultrasound (Routine) - Pending Review Specialty Diagnoses / Procedures Referred By Contac t Referred To Contact Radiology. Diagnoses Encounter for follow-up ultrasound of anatomy Procedures [facility] US Comprehensive Single Souleymane/Dunia Ruano MD [address] [place] [address] Referral ID Status Reason Start Date Expiration Date V isits Requested Visits Authorized [id number] Pending Review 11/18/2023 11/17/2024 1 1 Reason for Visit * Diagnostic Imaging Ultrasound (Routine) - Pending Review Specialty Diagnoses / Procedures Referred By Contac t Referred To Contact Radiology. Diagnoses Encounter for follow-up ultrasound of anatomy Procedures [facility] US Jeny Comer/Dunia Ruano MD [address] [address] Referral ID Status Reason Start Date Expiration Date V isits Requested Visits Authorized [id number] Pending Review 11/18/2023 11/17/2024 1 1 Encounter Details Date Type Department Care Team (Latest Contact Info) Description 12/09/2023 10:11 AM CDT - 12/09/2023 11:59 PM CDT Hospital Encounter [facility] Maternal Medicine [facility] [address] [facility] [facility] [address] [place] [address] Jannet Marmolejo MD [address] [facility] [address] [place] [address] Encounter for follow-up ultrasound of [...] Procedure Name Priority Date/Time Associated Diagnosis Comments [facility] US COMPREHENSIVE SINGLE F/U Routine 12/09/2023 11:03 AM CDT Encounter for follow-up ultrasound of anatomy documented in this encounter Results * [facility] US Comprehensive Single F/U (12/09/2023 11:03 AM [...] ? Study Date: ??12/09/2023 10:19am Pat. NO: ??[id number] ?Referring ??MD: JERI LIU Site: ? Department Traffic Freight Router: Gini Joiner RDMS : ??1990 ?Age: ?? [...] lb 3 ?oz EFW by ? Hadlock ([id number]) Head / Face / Neck Biometry: Backup Sawyer ?5.3 ? mm CM ? 8.4 ? mm ANATOMY ----- The following structures appear normal: Head / Neck ? Cranium. Head size. Head shape. Lateral ventricles. Midline falx. Cavum septi pellucidi. Cerebellum. Cisterna magna. Thalami. Face ? Lips. Nose. Heart / Thorax ?4-chamber view. RVOT view. LVOT view. 5-pzehql-wglirxo view. ? Diaphragm. Abdomen ? Stomach. Kidneys. [...] medical record, and communicating with other health career services representative and/or care coordination. Procedure Note Jannet Marmolejo MD - 12/09/2023 Comp Follow Up ----- Pat. Name: ORLANDO VARGAS Study Date: 12/09/2023 10:19am Pat. NO: [id number] Referring MD: JERI LIU Site: Department Traffic Freight Router: Gini Joiner RDMS : 1990 Age: 33 [...] EFW (lb,oz) 7 lb 3oz EFW by Hadlock([id number]-FL) Head / Face / Neck Biometry: Backup Sawyer 5.3mm CM 8.4mm ANATOMY ----- The following structures appear normal: Head / Neck Cranium. Head size. Head shape.Lateral ventricles. Midline falx. Cavum septi pellucidi. Cerebellum.Cisterna magna. Thalami. Face Lips. Nose. Heart / Thorax 4-chamber view. RVOT view. LVOT view.2-uuaqzw-oljfbli view. Diaphragm. Abdomen Stomach. Kidneys. Bladder. Spine [...] and 8lb 9oz babies. Her was also [id number]. This baby feels bigger to her than [...] electronic medical record, andcommunicating with other health career services representative and/or carecoordination. IMPRESSION ----- 1. Mcclellan at 35w 3d gestational age. 2. Due to advanced gestational age and positive some anatomyremains suboptimally visualized. No anomalies commonly detected byultrasound were identified within the limits of ultrasound. 3. Growth parameters and estimated weight were at the 95th% forgestational age. 4. The amniotic fluid volume appeared normal. Dunia Salas MD IMG [facility] US ORDERABLE S documented in this encounter Visit Diagnoses Diagnosis Encounter for follow-up ultrasound of anatomy documented in this encounter Care Teams Manager Utilization Management Relationship Specialty Start Date End Date Jeri Liu APRN CNM [address] [address] PCP - General 11/17/23 documented as of this encounter
--- OUTSIDE RECORDS SUMMARY | 2023-12-29 20:40 | XMS_ITS | Encounter Summary ---
Author Organization [place] Address [address] [facility] [place] [address] Care Team Providers Care Sales Inspector Name Role Phone Jeri Liu APRN [facility] Primary Care Provider [phone]- [phone] Reason for Visit * Diagnostic Imaging Ultrasound (Routine) - Pending Review Specialty Diagnoses / Procedures Referred By Jef t Referred To Contact Radiology. Diagnoses related condition, antepartum Procedures [facility] US Comprehensive Single Jeri Liu APRN CNM [facility] [address] [place] [address] Referral ID Status Reason Start Date Expiration Date V isits Requested Visits Authorized [id number] Pending Review 11/17/2023 11/16/2024 1 1 Encounter Details Date Type Department Care Team (Latest Contact Info) Description 11/18/2023 11:33 AM CDT - 11/18/2023 11:59 PM CDT Hospital Encounter [facility] [place] [address] [facility] [address] [place] [address] Dunia Salas MD [address] [place] [address] [address] [place] [address] Discharge Disposition: Home or Self [...] Procedure Name Priority Date/Time Associated Diagnosis Comments [facility] US COMPREHENSIVE SINGLE Routine 11/18/2023 12:46 PM CDT related condition, antepartum documented in this encounter Results * [facility] US Comprehensive Single (11/18/2023 12:46 PM CDT) [...] ? Study Date: ??11/18/2023 11:42am Pat. NO: ??[id number] ?Referring ??MD: JERI LIU Site: ? Merchandise For Resale Purchasing Agent: Gini Joiner RDMS : ??1990 ?Age: ?? [...] lb 4 ?oz EFW by ? Hadlock ([id number]-FL) Head / Face / Neck Biometry: Sewing Supervisor ?5.4 ? mm CM ? 9.8 [...] ?4-chamber view. LVOT view. 3- vessel view. 9-dbqklp-lhnlmmt view. Situs. Aortic arch view. Bicaval view. [...] record, and communicating with other health manager managed care and/or care coordination. Procedure Note Dunia Salas MD - 11/18/2023 Comprehensive ----- Pat. Name: ORLANDO VARGAS Study Date: 11/18/2023 11:42am Pat. NO: [id number] Referring MD: JERI LIU Site: Merchandise [employer] Res[employer] Purchasing Agent: Gini Joiner RDMS : 1990 Age: 33 [...] EFW (lb,oz) 5 lb 4oz EFW by Hadlock([id number]-[id number]-FL) Head / Face / Neck Biometry: Sewing Supervisor 5.4mm CM 9.8mm Nasal bone 12.8mm ANATOMY ----- The following structures appear normal: Head / Neck Cranium. Head size. Head shape.Lateral ventricles. Choroid plexus. Midline falx. Cavum septi pellucidi.Cerebellum. Cisterna magna. Parenchyma. Thalami. Vermis. Neck. Face Lips. Nose. Orbits. Lens. Heart / Thorax 4-chamber view. LVOT view. 3-vesselview. 5-sejvzv-rkbqgzm view. Situs. Aortic arch view. Bicaval view.Superior [...] medical record, andcommunicating with other health manager managed care and/or carecoordination. IMPRESSION ----- 1. Mcclellan [...] volume appeared normal. Jeri Liu APRN, CNM [facility] US ORDERAB LES documented in this encounter Visit Diagnoses Not on filedocumented in this encounter Care Teams Sales Inspector Relationship Specialty Start Date End Date [place] [address] PCP - General 11/17/23 documented as of this encounter
--- OUTSIDE RECORDS SUMMARY | 2023-12-29 20:40 | XMS_ITS | Encounter Summary ---
Author Organization [place] Address [address] [place] [address]. [place] [address] Care Team Providers Care Produce Wrapper Name Role Phone Gerda Liu APRN [facility] Primary Care Provider [phone]- [phone] Encounter Details Date Type Department Care Team [...] on filedocumented in this encounter Care Teams Produce Wrapper Relationship Specialty Start Date End Date Gerda Liu APRN CNM [facility] [address] [place] [address] PCP - General 11/17/23 documented as of this encounter
--- OUTSIDE RECORDS SUMMARY | 2023-12-29 20:40 | XMS_ITS | Encounter Summary ---
Author Organization [place] Address [facility] [address] Care Team Providers Care Press Setup Operator Name Role Phone Gerda Liu APRN, CNM Primary Care Provider [phone]- [phone] Encounter Details Date Type Department Care Team (Late st Contact Info) Description 11/17/2023 Medical Correspondence [facility] Mgmt [facility] [address] [place] [address] Scan, Non-Provider Social History Tobacco [...] on filedocumented in this encounter Care Teams Press Setup Operator Relationship Specialty Start Date End Date Gerda Liu APRN CNM [facility] [address] [place] [address] PCP - General 11/17/23 documented as of this encounter
--- OUTSIDE RECORDS SUMMARY | 2023-12-29 20:40 | XMS_ITS | Encounter Summary ---
Author Organization [place] Address [address] [place] [address]. [place] [address] Care Team Providers Care Edi Programmer Name Role Phone Gerda Liu APRN [facility] Primary Care Provider [phone]- [phone] Encounter Details Date Type Department Care Team [...] on filedocumented in this encounter Care Teams Edi Programmer Relationship Specialty Start Date End Date Gerda Liu APRN CNM [facility] [address] [place] [address] PCP - General 11/17/23 documented as of this encounter
--- OUTSIDE RECORDS SUMMARY | 2023-12-29 20:41 | XMS_ITS | Encounter Summary ---
Author Organization [place] Address [address] [place] [address]. [place] [address] Care Team Providers Care Lehr Loader Name Role Phone Gerda Liu APRN, CNM Primary Care Provider [phone]- [phone] Reason for Visit * Reason Comments Ultrasound L2- Increased CSF wi thin posterior fossa, MCI Encounter Details Date Type Department Care Team (Late st Contact Info) Description 11/17/2023 PRE VISIT [facility] [place] [address] [facility] [address] [place] [address] Cecy Bedoya RN Ultrasound (L2- [...] on filedocumented in this encounter Care Teams Lehr Loader Relationship Specialty Start Date End Date Gerda Liu APRN CNM [facility] [address] [place] [address] PCP - General 11/17/23 documented as of this encounter
--- OUTSIDE RECORDS SUMMARY | 2023-12-29 20:41 | XMS_ITS | Clinical Summary ---
Author Organization [facility] Address [place], [place] [address] Care Team Providers Care Web Manager Name Role Phone Unavailable Primary Care Provider [...] Comments Blood Pressure 117/75 03/24/2019 8:25 AM REGULATORY LEADER Pulse 80 03/24/2019 8:25 AM REGULATORY LEADER Temperature 36.7 ??C (98 ??F) 03/24/2019 8:25 AM REGULATORY LEADER Respiratory Rate - - Oxygen Saturation 98% 03/24/2019 8:25 AM REGULATORY LEADER Inhaled Oxygen Concentration - - Weight 64.5 kg (142 lb 3.2 oz) 03/24/2019 8:25 A M REGULATORY LEADER Height 165.1 cm (5' 5) 03/24/2019 8:25 AM REGULATORY LEADER Body Mass Index 23.66 03/24/2019 8:25 AM REGULATORY LEADER Plan of Treatment Health Maintenance Due Date Last Done Comments Depression screening for age 12+ 2003 HIV for age 15-65 2006 Hepatitis C screening for ag e 18-79 2009 Tetanus booster 11/06/2018 11/06/2008 BMI (ht and wt on same day) for age 18+ 03/24/2020 03/24/2019, 03/06/2016, 12/06/2015 Pap test for age 21-65 08/01/2022 0, 12/09/2013, 06/29/2012 COVID-19 vaccine series (2023- season) 2023 Influenza for age 9-49 12/06/2023 Tdap Completed 11/06/2008 Pneumococcal series for age 6-64 Aged Out No longer eligible b ased on patient's age to complete this topic Procedures Procedure Name Priority Date/Time Associated Diagnosis Comments TAIL EDGER THIN PREP PAP SCREEN IMAGED Routine 08/02/2019 4:15 PM CDT from Last 3 Months or Most Recently Relevant to Health Maintenance Results * TAIL EDGER THIN PREP PAP SCREEN IMAGED (08/02/2019 4:15 PM CDT) Case Report Gynecologic Cytology Report ? Case: [id number] ? Authorizing Provider: ??Laura Montez PA-C ?Collected: ? 08/02/2019 1615 ? Ordering Location: ? [facility] ?Received: ?08/04/2019 0849 ? First Screen: ?Romina Baxter ? Specimen: ?TAIL EDGER ThinPrep Vial Screening, Cervical/Vaginal ? 08/04/2019 5:55 PM CDT [facility]TRAL LABORATORY INTERPRETATION/ RESULT NEGATIVE FOR INTRAEPITHELIAL LESION OR MALIGNANCY (NIL) (none) 08/04/2019 5:55 PM CDT [facility] IMEN ADEQUACY Satisfactory for evaluation No endocervical component seen in a patient Excessive cytolysis/autolys is 08/04/2019 5:55 PM CDT [facility] HPV REQUEST HPV if ASCUS 08/04/2019 5:55 PM CDT [facility] Date of LMP 06/06/2019 08/04/2019 5:55 PM CDT [facility] Last Pap Result 0 5:55 PM CDT [facility] Comment:neg Menstrual Status 08/04/2019 5:55 PM CDT [facility] Additional Information 08/04/2019 5:55 PM CDT [facility] Comment: Interpreted at [facility] [employer] [facility] - [address], [place] [address] Automated Review Successful 08/04/2019 5:55 PM CDT [facility] Comment:Specimen processed s uccessfully by automated clay caster device, ThinPrep Imaging System, [employer] Note The pap test is a [...] and malignant lesions. 08/04/2019 5:55 PM CDT [facility] Other (Cervical/Vagina l) 08/02/2019 4:15 PM CDT 08/04/2019 8:49 AM CDT July Melida WAN PATHOLOGY/CYTOLOGY [facility] [address] [place] [address], [place] from Last 3 Months or Most Recently Relevant to Health Maintenance
--- OUTSIDE RECORDS SUMMARY | 2023-12-29 20:41 | XMS_ITS | Encounter Summary ---
Author Organization [facility] Address [address] [place] [address]. [place] [address] Care Team Providers Care Oil Distributor Name Role Phone Jeri Liu APRN, CNM Primary Care Provider [phone]- [phone] Reason for Referral * Diagnostic Imaging Ultrasound (Routine) - Pending Review Specialty Diagnoses / Procedures Referred By Contac t Referred To Contact Radiology. Diagnoses related condition, antepartum Procedures [facility] US Comprehensive Single Jeri Liu APRN CNM [facility] [address] [place] [address] Referral ID Status Reason Start Date Expiration Date V isits Requested Visits Authorized [id number] Pending Review 11/17/2023 11/16/2024 1 1 * Consultation (Routine: Next available opening) - Pending Review Specialty Diagnoses / Procedures Referred By Contac t Referred To Contact Diagnoses related condition, antepartum Jeri Liu APRN CNM [facility] [address] [place] [address] [facility] [address] [facility] [address] [place] [address] Referral ID Status Reason Start Date Expiration Date V isits Requested Visits Authorized [id number] Pending Review 11/17/2023 11/16/2024 1 1 Question Answer Preferred Location: [facility] [place] 01/10/2024 Ultrasound Comprehensive US (>than 18 weeks GA) US PROC NONE MFM Issue OTHER (enter details in Comments) - increased CSF w/in posterior fossa MFM MD Consultation (unrelated to Ultrasound findings): Yes Inflammatory Bowel Disease Clinic: Joint MFM and GI Consultation: No Chronic Kidney Disease: Joint MFM and Nephrology Consultation No Cardio-Obstetrics: Joint MFM and Cardiology Consultation No fax [facility] - Jeri Liu - Additional Information: no [...] (Latest Contact Info) Description 11/17/2023 Transcribe Orders [facility] [place] [address] [facility] [address] [place] [id number] Jeri Liu APRN CNM [address] [address] related condition, antepartum (Primary Dx) Social History [...] documented as of this encounter Results * [facility] US Comprehensive Single (11/18/2023 12:46 PM [...] 1:31 PM CDT ?Comprehensive ----- Pat. Name: ORALNDO VARGAS ? Study Date: ??11/18/2023 11:42am Pat. NO: ??[id number] ?Referring ??MD: JERI LIU Site: ? Traffic Rate Computer: Gini Joiner RDMS : ??1990 ?Age: ?? [...] lb 4 ?oz EFW by ? Hadlock ([id number]) Head / Face / Neck Biometry: Control Director ?5.4 ? mm CM ? 9.8 ? mm Nasal bone ? 12.8 ?mm ANATOMY ----- The following structures appear normal: Head / Neck ? Cranium. Head size. Head shape. Lateral ventricles. Choroid plexus. Midline falx. Cavum septi pellucidi. Cerebellum. Cisterna magna. ? Parenchyma. Thalami. Vermis. ? Neck. Face ? Lips. Nose. Orbits. Lens. Heart / Thorax ?4-chamber view. LVOT view. 3- vessel view. 6-nwdteq-xfiaiyg view. Situs. Aortic arch view. Bicaval view. [...] medical record, and communicating with other health associate director career services and/or care coordination. Procedure Note Dunia Salas MD - 11/18/2023 Comprehensive ----- Pat. Name: ORLANDO VARGAS Study Date: 11/18/2023 11:42am Pat. NO: [id number] Referring MD: JERI LIU Site: Traffic Rate Computer: Gini Joiner RDMS : 1990 Age: 33 [...] EFW (lb,oz) 5 lb 4oz EFW by Hadlock([id number]) Head / Face / Neck Biometry: Control Director 5.4mm CM 9.8mm Nasal bone 12.8mm ANATOMY ----- The following structures appear normal: Head / Neck Cranium. Head size. Head shape.Lateral ventricles. Choroid plexus. Midline falx. Cavum septi pellucidi.Cerebellum. Cisterna magna. Parenchyma. Thalami. Vermis. Neck. Face Lips. Nose. Orbits. Lens. Heart / Thorax 4-chamber view. LVOT view. 3-vesselview. 0-eqywpv-qnxaydg view. Situs. Aortic arch view. Bicaval view.Superior [...] electronic medical record, andcommunicating with other health associate director career services and/or carecoordination. IMPRESSION ----- 1. Mcclellan at [...] volume appeared normal. Jeri Liu APRN, CNM [facility] US ORDERAB LES documented in this encounter Visit Diagnoses Diagnosis related condition, antepartum- Primary documented in this encounter Care Teams Oil Distributor Relationship Specialty Start Date End Date Jeri Liu APRN CNM [address] [address] PCP - General 11/17/23 documented as of this encounter
--- OUTSIDE RECORDS SUMMARY | 2023-12-29 20:41 | XMS_ITS | Encounter Summary ---
Author Organization [facility] Address [address] [place] [address]. [place] [address] Care Team Providers Care Stitch Bonding Machine Tender Name Role Phone Unavailable Primary Care Provider Unavailabl e Encounter Details Date Type Department Care Team (Late st Contact Info) Description 05/28/2008 4:15 PM [facility] in [facility] [address] [place] [id number] Bunny Hernández MD [address] [place], [place] [address] Social History Tobacco Use Types Packs/Day Years [...]
[2023-12-29 20:48] VITALS: BP 145/90; PULSE 86; PULSE 91; RESP 16; TEMP 36.6; O2SAT 100
[2023-12-29 20:55] VITALS: PULSE 81; O2SAT 99
[2023-12-29 21:05] VITALS: BP 141/87; PULSE 92
[2023-12-29 21:12] VITALS: BP 134/80; PULSE 83
[2023-12-29 21:18] VITALS: BMI 31.4
--- NOTE | 2023-12-29 21:26 | W.PM.LDBA ---
Subjective History of Present Illness Date Seen: 12/29/23 Narrative: Patient is being admitted to Labor and Delivery for SROM of clear fluid at 1920. She is a 33 year old at weeks gestation. Her full history and physical was dictated by Tracy on 12/22/2023. Please see this for details. Specific Issues/Plans : Ever, 2 girls: David and Melyssa. It's a boy! H&P completed 12/22/2023 by Tracy YUN # Increased CSF within the posterior fossa is suspected. Maternal medicine consult: posterior fossa appeared WNL. Resolved. Repeat level 2 in 3 weeks to reassess anatomy not adequately seen (profile, RVOT, ductal arch, L foot) # Cade breech at 32 wks. Resolved. # Hx GDM with both previous pregnancies. Diet controlled. 20wk GTT: 76 1hr GTT: 154 3hr GTT: declines, 1-2 weeks of testing instead. All except 3 fasting normal. Additional 2 weeks of fasting and random PP all normal. Ok to stop testing. # Family hx of Trisomy 21 (Aunt of the FOB). [id number]: negative # Marginal Cord Insertion, 1.5 cm from edge Growth US 28 weeks: 72% 32 week growth: EFW 81%, AC >97% Level 2: EFW 89%, AC 99% 36 weeks growth with BPP: 90%, EFW 95%, BPP 8/8 Consider BPP starting at 36 weeks # Pelvic floor weakness with incontinence. PT referral placed. # EFW 95% per MFM can consider IOL at 39 weeks. Declines. Needs pap PP. OB - Problem Based A/P Additional Plan (1) : Status: Acute (2) Marginal insertion of umbilical cord affecting management of mother: Status: Acute (3) History of uterine fibroid: Problem details: See on 2020 TV ultrasound. Status: Chronic (4) Exercise-induced asthma: Status: Chronic (5) SROM (spontaneous rupture of membranes): Status: Acute Plan ASSESSMENT:?? 33 at 38w2d weeks gestation?? complicated by:??marginal cord insertion Labor type: Spontaneous ROM, Early labor?? Category 1 FHR pattern.??? Labor complicated by: elevated BP, not sustained, without diagnosis of HTN?? GBS negative? PLAN:?? 1. Routine intrapartum cares as ordered. Continue with expectant management?? 2. Monitoring per policy, intermittent?? 3. Planning unmedicated . Desires water . Consent signed. Hep C negative. Candidate for analgesia of choice.??? 4. Patient encouraged to reposition and ambulate to promote physiologic labor and .??Sent to walk stairs. 5. Pre-eclampsia lab work-up 6. Anticipate possible shoulder dystocia due to AC circumference differences. 7. Anticipate ? OB Exam Physical Exam Vital signs: Temp Pulse Resp BP Pulse Ox 97.8 F 83 16 134/80 99 12/29/23 20:48 12/29/23 21:12 12/29/23 20:48 12/29/23 21:12 12/29/23 20:55 Narrative: Vitals Reviewed Constitutional:? Alert and oriented x3 HEENT:? Normocephalic, atraumatic Neck:? Supple Lungs:? Clear to auscultation bilaterally Heart:? Regular rate and rhythm, no murmur, rub or gallop Abdomen:? Soft, nontender, and gravid. Vertex by Chris's, confirmed with cervical exam. EFW 9# Extremities:? No edema or erythema, BLE with +3/4 reflexes and +1 beat clonus Cervix: deferred due to ROM, grossly ruptured, vertex verified by VE in clinic earlier today with palpable sutures NST: 125 bpm/moderate variability/accelerations present/decelerations absent/irreg and mild contractions
[2023-12-29 22:48] LABS: Amnisure Rom* POSITIVE
[2023-12-29 23:13] LABS: Hematocrit 35.8 % (33.0-51.0); Hemoglobin* 12.2 gm/dL (12.0-16.0); Mean Corpuscular HGB Conc 34 gm/dL (32-36); Mean Corpuscular Hemoglobin 31 pg (26-34); Mean Corpuscular Volume 90 fL (80-100); Platelet Count* 216 K/uL (140-440); White Blood Count* 14.03 K/uL (4.50-11.00)
[2023-12-29 23:26] LABS: Creatinine* 0.5 mg/dL (0.5-1.5); Est. Creatinine Clearance* 145.35; Estimated Glomerular Filt Rate 128 ml/min
[2023-12-29 23:27] LABS: Alanine Aminotransferase* 20 U/L (4-35); Aspartate Amino Transferase* 28 U/L (12-35); Blood Urea Nitrogen* 10 mg/dL (5-24)
[2023-12-29 23:29] LABS: Slide Review Reflex No
[2023-12-29 23:35] VITALS: BP 131/77; PULSE 90; RESP 20; TEMP 36.7
[2023-12-29 23:38] LABS: Uric Acid* 6.3 mg/dL (2.2-8.4)
[2023-12-30] VITALS (21 sets, daily range): BP systolic 114–141; BP diastolic 59–81; PULSE 84–103; RESP 16–20; TEMP 36.4–37.2; O2SAT 96–97
--- NOTE | 2023-12-30 03:57 | PM.OBPNL ---
Subjective Date Seen: 12/30/23 Narrative: Since admission, Navya has been trying to encourage contractions to strengthen and increase in frequency. she has doen the stair, Miles circuit, certain positions to try to encourage labor. She has minimal to no discomfort at this time and has been trying to get things going for almost 8 hours. She was encouraged to try and rest but has been unable to do so and wants to get labor going. Objective Exam: Objective: Constitutional: Alert and oriented x3, no distress, coping well Vital signs stable, see nurse documentation Abdomen: gravid, contractions palpate mild with contractions and soft between Cervix: deferred, grossly ruptured, multiple large gushes visualized NST: normal baseline/moderate variability/accelerations present/decelerations absent/minimal contractions Vital Signs: Last Vital Signs Temp 97.5 F L 12/30/23 02:30 Pulse 93 12/30/23 03:34 Resp 16 12/30/23 02:30 BP 123/71 12/30/23 03:34 Pulse Ox 99 12/29/23 20:55 Plan Plan: Labor A/P? ASSESSMENT:?? 33 at 38w3d weeks gestation?? complicated by:??marginal cord insertion Labor type: Spontaneous ROM, Early labor?? Category 1 FHR pattern.??? Labor complicated by: elevated BP, not sustained, without diagnosis of HTN?? GBS negative? PLAN:?? 1. Routine intrapartum cares as ordered. Offered pitocin augmentation due to rupture since she cannot rest and has been unable to get labor going with conservative measures. Pt consents. Initiate pitocin.? 2. Monitoring per policy, continuous 3. Planning unmedicated . Desires water . Consent signed. Hep C negative. Candidate for analgesia of choice.??? 4. Patient encouraged to reposition and ambulate to promote physiologic labor and .?? 5. Pre-eclampsia lab work-up -was normal 6. Anticipate possible shoulder dystocia due to AC circumference differences. 7. Anticipate ?
[2023-12-30] MEDS: LACTATED RINGERS 1000 ML 1,000 ML 125 ML IV (04:24)
[2023-12-30] MEDS: OXYTOCIN 30 unit/500 ML in NS 30 UNIT/500 ML BAG IVPB (04:26)
--- NOTE | 2023-12-30 08:32 | PM.OBPNL ---
Subjective Time Seen by Provider: 06:30 Date Seen: 12/30/23 Narrative: Pitocin is up to 5 mu/min. Still no increase in contractions per patient. She is up ambulating and hoping things start soon. Ever is supporting her at the bedside. Objective Exam: Objective: Constitutional: Alert and oriented x3, no distress, coping well Vital signs stable, see nurse documentation Abdomen: gravid, contractions palpate mild with contractions and soft between Cervix: deferred due to gross rupture NST: 140 bpm/moderate variability/accelerations present/decelerations absent/irreg and mild contractions Vital Signs: Last Vital Signs Temp 97.9 F 12/30/23 08:24 Pulse 85 12/30/23 07:20 Resp 20 12/30/23 06:24 BP 137/66 12/30/23 07:20 Pulse Ox 99 12/29/23 20:55 Assessment Amniotic Membrane Status: SROM Status: Category l Plan Plan: ASSESSMENT:?? 33 at 38w3d weeks gestation?? complicated by:??marginal cord insertion Labor type: Spontaneous ROM, Early labor??-augmented with pitocin Category 1 FHR pattern.??? Labor complicated by: elevated BP, not sustained, without diagnosis of HTN?? GBS negative? PLAN:?? 1. Routine intrapartum cares as ordered. Continue with pitocin augmentation?? 2. Monitoring per policy, continuous? 3. Planning unmedicated . Desires water . Consent signed. Hep C negative. Candidate for analgesia of choice.??? 4. Patient encouraged to reposition and ambulate to promote physiologic labor and . 5. Pre-eclampsia lab work-up -normal, no HTN diagnosis, PCR held due to ROM 6. Anticipate possible shoulder dystocia due to AC circumference differences. 7. Anticipate ?
--- NOTE | 2023-12-30 10:43 | PM.OBPNL ---
Subjective Time Seen by Provider: 07:48 Date Seen: 12/30/23 Narrative: Navya is a 33 yo at 38 3/7 weeks gestation presented last evening with SROM. She was expectantly managed for 6 hours before starting pitocin when she felt nothing was changing. She is coping well this morning but fairly comfortable with labor pain. She is actively moving around the room and has been doing the labor warm up to encourage labor. Pitocin is at 5 mu. She is supported in labor by her . We discussed plan of care and option of AROM of forebag if present. Objective Exam: Objective: Constitutional: Alert and oriented x3, mild distress, coping well Vital signs stable, see nurse documentation Abdomen: gravid, contractions palpate moderate with contractions and soft between Cervix: 5 cm/80%/-1 station/vertex NST: 145 bpm/moderate variability/15x15 accelerations/no decelerations/contractions every 2-5 minutes Vital Signs: Last Vital Signs Temp 97.9 F 12/30/23 08:24 Pulse 93 12/30/23 10:23 Resp 20 12/30/23 06:24 BP 131/71 12/30/23 10:23 Pulse Ox 99 12/29/23 20:55 Assessment Amniotic Membrane Status: SROM Status: Category l Plan Plan: ASSESSMENT:?? 33 at 38w2d weeks gestation?? complicated by:??marginal cord insertion Labor type: Spontaneous ROM, Early labor?? Category 1 FHR pattern.??? Labor complicated by: elevated BP greater than 4 hours apart, labs WNL but no p/c ratio obtained GBS negative? PLAN:?? 1. Routine intrapartum cares as ordered. Continue with pitocin for augmentation. Discussed AROM of forebag if able. Performed with consent. 2. Monitoring per policy, continuous with Pitocin 3. Planning unmedicated . Desires water . Consent signed. Hep C negative. Candidate for analgesia of choice, if desired.??? 4. Patient encouraged to reposition and ambulate to promote physiologic labor and . 5. Pre-eclampsia lab work-up WNL. Continue to monitor BP's 6. Anticipate possible shoulder dystocia due to AC circumference differences. 7. Anticipate ?
--- NOTE | 2023-12-30 10:44 | W.PM.VAGDE_ITS ---
OB Procedure Vag Delivery Mother Details Mother Details: Navya is a 33 year-old, 4, Para 2, admitted on 12/29/23 at 38.2 weeks gestation. : 4 Para: 2 Weeks Gestation: 38.3 Admission Date: 12/29/23 Additional Details Amniotic Membrane Status: SROM Amniotic Membrane Rupture Date: 12/29/23 Amniotic Membrane Rupture Time: 19:20 Amniotic Membrane Fluid Description: Clear Analgesia/Anesthesia Type: Local Waterbirth: Yes Pitcoin: Yes (Augmentation only, declined AMTSL) Intrapartal Events: Labor Augmentation and Precipitous Labor <3 Hrs Labor Onset: 07:38 Complete: 09:48 Pushin:48 Heart: heart tones during second stage were reassuring with continuous monitoring. Delivery Details Delivery Date: 12/30/23 Delivery Time: 09:53 Route of delivery: Infant Gender: Male Viability: Alive; Heart Rate Present Position at Delivery: OA Delivery Details: Patient was admitted for SROM clear fluid at 1920. She progressed slowly and shared decision was made to augment with low dose Pitocin. She remained fairly comfortable on pitocin until forebag was AROM'd. She became uncomfortable quickly, pitocin was turned off, and patient entered the tub. Patient was assumed complete with pushing at 0948. of a viable male at 0953, semi- reclined in the tub. Vertex delivered OA. No nuchal cord or shoulder but due to maternal position body was slow to deliver, nursing assisted with bringing her lets open and body then delivered without incident. Infant passed to mothers abdomen with a vigorous cry. Cord was clamped and cut at > 5 minutes. APGARS were 8 at one minute and 8 at five minutes respectively. Mouth was bulb mercado ctioned. Intact placenta with a 3 vessel cord delivered spontaneously at 1021. Fundus firm. Shallow, perineal 2nd degree identified and repaired in typical fashion. QBL 25, EBL 200 cc for total 225. Mother and baby stable; mother plans to breastfeed. Infant weight pending. 1 Minute Interval Total Score: 8 5 Minute Interval Total Score: 8 Additional Details Shoulder Dystocia: No Placenta Delivery Time: 10:21 Placental Delivery Description: Spontaneous Delivery repair: Vicryl Procedure Done: Global Blood Loss: 225 Laceration: Perineal - 2nd Degree Blood Loss Measurement Type: QBL (+ EBL in tub) Bakri Used: No Sponge/Need Count Correct: Yes Cord Vessel Description: 3 Vessels Indication for instrumentation: nonreassuring FHR tracing Event Summary Status: Mother and infant were stable after delivery. She met criteria for GHTN during labor. BP since delivery has been stable. Disposition: floor
[2023-12-30] MEDS: ACETAMINOPHEN 500 MG TABLET 1000 MG PO ×2 (12:27→20:13)
[2023-12-30] MEDS: IBUPROFEN 600 MG TABLET PO ×2 (17:31→23:36)
[2023-12-31 05:51] VITALS: BP 120/75; PULSE 75; RESP 16; TEMP 36.7; O2SAT 97
[2023-12-31 07:30] VITALS: BP 123/80; PULSE 85; RESP 16; TEMP 36.4; O2SAT 96
--- NOTE | 2023-12-31 08:56 | P.DS_ITS ---
DS: Providers Provider Time Seen by Provider: 08:56 Date Seen: 12/31/23 Date of admission: 12/29/23 21:41 Primary care physician: Not a Local Provider Admitting Clinician: Monika Wolfe CNM Attending Physician on discharge: Monika Wolfe CNM Date of Discharge: 12/31/23 DS: Diagnosis Discharge Diagnosis (1) care and examination of lactating mother: Status: Acute (2) Gestational hypertension: Status: Acute (3) Stress incontinence in female: Status: Acute Problem details: pelvic floor PT after 1st . (4) Menstrual migraine: Status: Chronic (5) Exercise-induced asthma: Status: Chronic Exam Narrative: Exam Narrative: Navya feels well.? Her pain is well controlled with current medications.? She has no new complaints.? Urinary output is adequate and she is voiding without difficulty.? Has a good appetite, is tolerating a general diet, is passing flatus, and has bot had a bowel movement.? Has moderate amount of rubra lochia.? She is ambulating well.? GENERAL APPEARANCE:? normal affect, alert, no distress? MOOD:? appropriate? CHEST:? clear to auscultation and percussion? HEART:? regular rate and rhythm? ABDOMEN:? soft, non-tender the uterine fundus is firm and is appropriate for the stage of recovery.? PERINEUM:? mild edema of the perineum, there is a 2nd degree laceration that is healing well.? EXTREMITIES:? normal and no edema? Const: Vital Signs, click to edit/add: Vital Signs - 24 hr 12/30/23 10:23 12/30/23 10:43 12/30/23 10:58 Temperature Pulse Rate 93 90 90 Pulse Rate [Pulse Oximeter] Respiratory Rate Blood Pressure 131/71 135/62 123/59 L Blood Pressure [Le ft Arm] Pulse Oximetry Oxygen Delivery Dc thod 12/30/23 11:13 12/30/23 11:28 12/30/23 11:43 Temperature Pulse Rate 91 101 H 90 Pulse Rate [Pulse Oximeter] Respiratory Rate Blood Pressure 127/70 132/66 126/61 Blood Pressure [Le ft Arm] Pulse Oximetry Oxygen Delivery Dc thod 12/30/23 11:58 12/30/23 12:13 12/30/23 17:11 Temperature 99 F Pulse Rate 96 102 H Pulse Rate [Pulse Oximeter] 89 Respiratory Rate 16 Blood Pressure 127/68 116/70 Blood Pressure [Le ft Arm] 115/73 Pulse Oximetry 97 Oxygen Delivery Me thod Room Air 12/30/23 20:14 12/30/23 23:48 12/31/23 05:51 Temperature 98.7 F 98.8 F 98.1 F Pulse Rate Pulse Rate [Pulse Oximeter] 103 H 84 75 Respiratory Rate 16 16 16 Blood Pressure Blood Pressure [Le ft Arm] 117/81 114/74 120/75 Pulse Oximetry 96 97 97 Oxygen Delivery Me thod Room Air Room Air Room Air Documenting provider has reviewed patient's vital signs: yes OB - DS: Summary Hospital Course Hospital Course: The patient is a 33 year old G 4 P 3 at 38 weeks gestation that was admitted to the Center on 12/29/23 for SROM with pitocin augmentation. She had an uncomplicated vaginal delivery. She delivered a viable male infant. She is breast feeding. the patient has done well. Peripartum Data Infant delivery method: Vaginal Laceration description: Perineal - 2nd Degree Episiotomy description: None complications: none Infant Gender: Male Discharge Plan: Home Status at Discharge Functional status at discharge: independent ambulation Overall status at discharge: patient is progressing back to baseline Time Spent with Patient Time attestation: Total time spent providing and/or coordinating discharge services: Time spent: Less than 30 minutes Discharge Plan Discharge Disposition: Home, Self-Care Date of Admission: 12/29/23 21:41 Primary Care Provider: Provider,Not a Local Condition: Stable Anticipated Discharge Date/Time: 12/31/23 09:02 Discharge Medications: New docusate sodium 100 mg Capsule 100 mg PO DAILY Qty: 60 0RF ibuprofen 600 mg Tablet 600 mg PO Q6H PRN (Reason: pain) Qty: 100 0RF Continued ascorbate calcium (vitamin C) 500 mg tablet 500 mg PO QDAY [id number] 29 mg iron- 1 mg-150 mg capsule 1 cap PO QDAY B-complex with vitamin C Tablet 1 tab PO QDAY omega-3 fatty acids 1,000 mg capsule 1,000 mg PO QDAY Discharge Orders: Discharge Order (Routine); Ordered 12/31/23 Ordered By: Dalia Tipton Patient Education: OB Vaginal/Breast Feeding Additional Instructions: Discharge instructions were reviewed with the patient including signs and symptoms of infection and home going medications.? Lifting Restrictions: 20 pounds for 6? weeks? ?? Do not drive while taking narcotic pain meds.? Off Work or School for 6 weeks.? ?? Symptoms to report to doctor:? -Bleeding that saturates more than one pad per hour? -Passing clots larger than the size of a golf ball? -Pain not relieved by prescribed medication? -Fever above 100.4 degrees Fahrenheit? -A foul vaginal odor? -Difficulty in emotions, mood and functions? -Thoughts of hurting yourself and/or ? -Painful, reddened area in your breast? -Any drainage, redness or tenderness in your IV/epidural site? -Severe headache that doesn't improve after taking medications? -Changes in vision, including temporary loss of vision, blurred vision, and/or light sensitivity? -Upper abdominal pain (usually under ribs on the right side)? -Decrease in urination or painful, frequent urinating? -Chest pain? -Shortness of breath? -Tenderness or pain with redness and/swelling in the calf(s) of your leg? ?? Follow Up in clinic in 2 and 6 weeks.? ?? consultation services are available to all mothers and babies for the first year after delivery.? To make an appointment, please call [phone].? ? Activity Level: Activity as Tolerated Discharge Diet: Regular Follow Up Appointments: [facility] [Provider Group] Forms: [employer] Info Instructions
[2023-12-31] MEDS: DOCUSATE SODIUM 100 MG CAPSULE PO (09:55)
[2023-12-31] MEDS: ACETAMINOPHEN 500 MG TABLET 1000 MG PO (10:58)
[2023-12-31 12:19] VITALS: BP 124/77; PULSE 87; RESP 16; TEMP 36.5; O2SAT 96
[2024-01-01 00:45] LABS: Rapid Plasma Reagin (RPR) Non Reactive (Non Reactive)
== END 2023-12-31 13:58 | disposition home or self-care (01) | DRG 560 ==
LOC: OB OUT 21:42 → OB 21:42
PROVIDERS: Admitting Provider Midwife; Visit Provider Midwife
DX: O42.02 Full-term premature rupture of membranes, onset of labor within 24 hours of rupture (principal); Z3A.38 38 weeks gestation of pregnancy; Z37.0 Single live birth; O69.89X0 Labor and delivery complicated by other cord complications, not applicable or unspecified; O13.4 Gestational [pregnancy-induced] hypertension without significant proteinuria, complicating childbirth; O70.1 Second degree perineal laceration during delivery; Z82.79 Family history of other congenital malformations, deformations and chromosomal abnormalities; G43.829 Menstrual migraine, not intractable, without status migrainosus; J45.990 Exercise induced bronchospasm; Z86.32 Personal history of gestational diabetes; N39.3 Stress incontinence (female) (male)
CPT/HCPCS: 36415; 82565; 82570; 84112; 84156; 84450; 84460; 84520; 84550; 85025; 85027; 86592; 86850; 86900; 86901; G0463; A9270; J7120

== ENCOUNTER 2024-01-11 15:06 | Emergency (ER) | payer BC, SELFPAY ==
[2024-01-11 15:09] VITALS: BP 140/95; PULSE 92; RESP 18; TEMP 36.9; O2SAT 97; BMI 26.6
[2024-01-11 15:44] VITALS: BP 125/81; PULSE 86; O2SAT 97
[2024-01-11 15:45] VITALS: PULSE 81; O2SAT 96
[2024-01-11 15:51] LABS: Appearance Urine Clear (Clear); Bilirubin Urine Negative (Negative); Blood Urine 3+ (Negative); Color Urine Yellow (Yellow); Glucose Urine Negative (Negative); Ketones Urine Negative (Negative); Leukocyte Esterase Urine 1+ (Negative); Nitrite Urine Negative (Negative); Protein Urine Negative (Negative); Specific Gravity Urine 1.015 (1.000-1.030); Urobilinogen Urine 0.2 (0.2-1.0); pH Urine 6.5 (5.0-8.5)
--- NOTE | 2024-01-11 16:03 | CRLHL7_ITS ---
For Patients: As a result of the Century Cures Act, medical imaging exams and procedure reports are released immediately into your electronic medical record. You may view this report before your referring provider. If you have questions, please contact your health care provider. INDICATION: hemorrhage COMPARISON: none TECHNIQUE: 2D hwang scale and color Doppler images were acquired of the pelvis using a transabdominal approach. FINDINGS: uterus noted. Uterus measures 13.9 cm in length by 7.1 cm in AP diameter by 8.1 cm in transverse dimension. No uterine fibroid. Endometrium measures 5 millimeters in thickness. Hypoechoic fluid is present within the endometrial canal. No abnormal vascularity. The right ovary measures 3.0 x 1.7 x 1.9 cm in size and the left ovary measures 3.2 x 1.5 x 2.3 cm. The ovaries demonstrate normal arterial and venous blood flow on color Doppler analysis. There are no suspicious fluid collections within the cul-de-sac. IMPRESSION: uterus with blood products in the endometrial canal. No evidence of retained products. Dictated by Adan Mena MD @ 01/12/2024 12:05:41 PM (Electronically Signed)
--- NOTE | 2024-01-11 16:13 | ED_ITS ---
<Statement entered by Jaqueline Cooper MD - 01/11/24 18:09> Opened this document in error. HPI - General Adult General Chief complaint: Vaginal Bleeding Stated complaint: Post bleeding Time Seen by Provider: 01/11/24 15:48 Source: patient Mode of arrival: ambulatory Limitations: no limitations History of Present Illness HPI narrative: 33-year-old female 12 days from her 3rd vaginal delivery. Spontaneous labor at 38 and 4 weeks gestation, labor was augmented that there was no instrumentation. Reports normal placental delivery as well and no manual extraction. She presents because she has had very light vaginal bleeding for the last week, even less so than her previous courses. She says that today she had bright red bleeding upon awakening but was not a large amount and did not initially concern her. She drove her daughters to the park with a plate for short period of time and then she drove home trip repair for her newborns circumcision appointment. She noticed that her pad was about half soaked and changed this prior to the appointment. Reports that the appointment was uncomplicated and when she stopped at the store after the appointment to grab some Vaseline for his postprocedure care, she felt a large gush of fluid and it soaked through her pad and even through her pants. She was able to settle into the store and into the bathroom to change things. She does show me the pad and reflects about a golf ball sized clot. She says that the bleeding then slowed shortly after that. She went home and then had another smaller gush of bright red blood and has had a few stringy clots. She is not feeling overly dizzy or lightheaded. She did notice that her urine was dark this morning but is not having any feelings of dysuria. She says that her lower abdomen has been a little bit tender. She says that she thought maybe she had a fever last week but none today. She had attributed that fever to illness within the household. She denies any symptoms of mastitis, vomiting, stool issues. Her bowels are moving well and are nice and soft. She is not using a stool softener. She is not needing pain medications. No prior history of pelvic or uterine surgeries. ROS is otherwise negative times 12 systems. Reports her past medical history is fairly benign. She had mildly elevated blood pressure but was dennis tored and treatment was not needed. Rajput was probably only ruptured about 14 hours total. Denies long-term medications, sulfa allergy. Obstetrical notes reviewed. Related Data Home Medications ?Medication ?Instructions ?Recorded ?Confirmed B-complex with vitamin C 1 tab PO QDAY 06/09/23 12/29/23 ascorbate calcium (vitamin C) 500 500 mg PO QDAY 06/09/23 12/29/23 mg tablet vitamins no.83-iron 29 1 cap PO QDAY 06/09/23 12/29/23 mg-folate no.6 1 mg-dha 150 mg capsule omega-3 fatty acids 1,000 mg 1,000 mg PO QDAY 11/03/23 12/29/23 capsule Previous Rx's ?Medication ?Instructions ?Recorded docusate sodium 100 mg capsule 100 mg PO DAILY #60 caps 12/31/23 ibuprofen 600 mg tablet 600 mg PO Q6H PRN pain #100 tabs 12/31/23 methylergonovine 0.2 mg tablet 0.2 mg PO Q6H #3 tabs 01/11/24 Allergies Allergy/AdvReac Type Severity Reaction Status Date / Time Sulfa (Sulfonamide Allergy Mild Rash Verified 12/29/23 13:56 Antibiotics) PFSH PFSH Medical History History of gestational diabetes mellitus (GDM) ?Z86.32 - Personal history of gestational diabetes (ICD-10) Vaginal delivery ?O80 - Encounter for full-term uncomplicated delivery (ICD-10) History of gestational diabetes mellitus ?Z86.32 - Personal history of gestational diabetes (ICD-10) Surgical History History of third molar tooth extraction ?K08.409 - Partial loss of teeth, unspecified cause, unspecified class (ICD- 10) Family History Father Diabetes Mother Atrial fibrillation Preeclampsia Maternal Grandfather Heart disease Social History Narrative: SOCIAL Education: bachelors 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 Feels it was situational related to covid restrictions. CHRIST: 2 PHQ 9: 1 Seat Belt Use: Routinely Smoking: Denies past/present Alcohol/day: Denies while Caffeine: 1.5-2 cups/day Drug Use: Denies past/present Chicken Pox: Yes as a child MRSA: Denies What is your current living situation?: I presently have a place to live Problems where you live: no known problems In the past 12 months, utilities in danger of being shut off: no In past 12 months, lack of transportation kept you from medical appts, meetings, work, or getting things needed for daily living: no In the past 12 mos, have been you worried that your food would run out before you had money to buy more?: never true In the past 12 mos, the food you bought just didn't last and you didn't have money to buy more?: never true Smoking Status: Never smoker Do you use any of these nicotine containing products: None Second hand tobacco smoke exposure: No How often do you have a drink containing alcohol: monthly or less How many standard drinks containing alcohol do you have on a typical day: 1 or 2 How often do you have six or more drinks on one occasion: Never AUDIT-C Alcohol total score: 1 Non-prescribed substance use: denies use How often does anyone, including family, friends and others, physically hurt you : never How often does anyone, including family, friends and others, insult or talk down to you: never How often does anyone, including family, friends and others, threaten you with harm: never How often does anyone, including family, friends and others, scream or curse at you: never Little interest or pleasure in doing things: not at all Feeling down, depressed, or hopeless: not at all service: No Exam Const: Vital Signs, click to edit/add: Vital Signs - 24 hr 01/11/24 15:09 01/11/24 15:44 01/11/24 15:45 Temperature 98.5 F Pulse Rate 86 81 Pulse Rate [Right Pulse Oximeter] 92 Respiratory Rate 18 Blood Pressure 125/81 Blood Pressure [Ri ght Upper Arm] 140/95 H Pulse Oximetry 97 97 96 Oxygen Delivery Me thod Room Air 01/11/24 17:55 Temperature Pulse Rate Pulse Rate [Right Pulse Oximeter] 71 Respiratory Rate 18 Blood Pressure Blood Pressure [Ri ght Upper Arm] 141/92 H Pulse Oximetry 97 Oxygen Delivery Me thod Room Air Documenting provider has reviewed patient's vital signs: yes Common normals: no apparent distress and alert General appearance: cooperative, comfortable and well kempt HENMT: Common normals: normocephalic Head and scalp: normocephalic Face and sinus: normal facial exam Mouth: oral and palatal mucosa normal Throat: posterior oropharynx normal Eye: Common normals: conjunctivae normal General eye: normal appearance of both eyes Conjunctiva: conjunctiva(e) normal Neck & C-Spine: Common normals: full ROM and no lymphadenopathy Resp: Common normals: normal respiratory effort and no use of accessory muscles Effort & inspection: able to speak in complete sentences Cardio: Common normals: regular rate, regular rhythm, S1 normal heart sound and S2 normal heart sound Rate: regular rate Rhythm: regular rhythm Heart sounds: S1 normal and S2 normal GI: Common normals: Normal to inspection, nondistended, normoactive bowel sounds present, soft to palpation, non-tender, no hepatosplenomegaly and no masses Palpation: soft and no hepatosplenomegaly Other: Fundus does seem deviated slightly to the left. Really was not tender on exam. Extremity: Common normals: normal to inspection, normal capillary refill and no pedal edema Neuro: Sensorium/orientation: alert Motor exam: no tremor noted Psych: Common normals: thought process normal Appearance: well kempt Attitude: engaged Mood and affect: euthymic mood Thought process: normal thought process Skin: Common normals: no rashes or lesions noted General skin exam: no rashes or lesions noted Course Course ED Course: 33-year-old 12 days presenting with large increase in vaginal bleeding. May be physiological and related to recent activity but cannot exclude endometritis, retained products of conception, clotting disorder or other abnormality. Recommend typical blood work, ultrasound. Await findings and consult with OB. Blood work to include a quant level, type and screen, CBC, basic metabolic panel and CRP. No treatment at this time as the bleeding seems to have lessened again. Reevaluation(s) Reevaluation #1: Update: Counseled patient on findings. Spoke with OB provider and they recommend Methergine. Will receive 0.2 mg p.o. x1 and will continue on an additional dose about every 6 hours x4 total doses. Alarm symptoms were reviewed and patient counseled on expectations. She will still have bleeding and may actually have increased bleeding compared to the previous days with the use of this medication. She may still have some clots but would not expect anything larger than golf ball. We discussed signs of weakness, anemia, heavy bleeding, persistent bleeding, fevers or uncontrolled pain all is good indica tions to come back to the ED. She verbalizes understanding and agreement. The formal ultrasound is not back OB and myself have reviewed it and agree that it does seem like there is some heterogeneous blood but no other signs of retained placenta. Her quant levels were also 0 and there are no other signs of infection on her blood work or other complication. Therefore, we do think she is safe to discharge with the plan as above. It is okay to use Tylenol and/or ibuprofen if needed. Call OB in 24-36 hours to update them on her progress. She verbalizes understanding and agreement. First dose of Methergine given prior to discharge. Vital Signs Vital signs: Initial Vital Signs Temperature 98.5 F 01/11/24 15:09 Temperature Source Temporal Artery Scan 01/11/24 15:09 Pulse Rate 92 01/11/24 15:09 Respiratory Rate 18 01/11/24 15:09 Blood Pressure 140/95 H 01/11/24 15:09 Blood Pressure Mean 110 H 01/11/24 15:09 Blood Pressure Position Sitting 01/11/24 15:09 Pulse Oximetry 97 01/11/24 15:09 Oxygen Delivery Method Room Air 01/11/24 15:09 Vital Signs Temperature 98.5 F 01/11/24 15:09 Pulse Rate 92 01/11/24 15:09 Respiratory Rate 18 01/11/24 15:09 Blood Pressure 140/95 H 01/11/24 15:09 Pulse Oximetry 97 01/11/24 15:09 Oxygen Delivery Method Room Air 01/11/24 15:09 Temperature 98.5 F 01/11/24 15:09 Pulse Rate 71 01/11/24 17:55 Respiratory Rate 18 01/11/24 17:55 Blood Pressure 141/92 H 01/11/24 17:55 Pulse Oximetry 97 01/11/24 17:55 Oxygen Delivery Method Room Air 01/11/24 17:55 Medications Administered Medications: Discontinued Medications Generic Name Dose Route Start Last Admin Trade Name Dae PRN Reason Stop Dose Admin Methylergonovine Maleate 0.2 mg 01/11/24 18:36 01/11/24 19:17 Methylergonovine Maleate 0.2 Mg Tablet PO 01/11/24 18:37 0.2 mg ONCE ONE Administration Medical Decision Making Lab Data Lab results reviewed: Yes I reviewed the patient's lab results Lab results narrative: Very reassuring. Hemoglobin looks good, no leukocytosis. Normal electrolytes, creatinine reassuring. CRP reassuring and quant levels are 0 Labs: Lab Results 01/11/24 01/11/24 Range/Units 15:35 16:39 WBC 9.37 (4.50-11.00) K/uL RBC 4.51 (4.00-5.20) m/uL Hgb 13.7 (12.0-16.0) gm/dL Hct 40.8 (33.0-51.0) % MCV 91 (80-100) fL MCH 30 (26-34) pg MCHC 34 (32-36) gm/dL RDW Coeff of Ronda 12.3 (11.5-15.5) % Plt Count 342 (140-440) K/uL Neut % (Auto) 70.6 (42.0-72.0) % Lymph % (Auto) 20.8 (20-44) % [place] % (Auto) 5.1 (0.0-11.0) % Eos % (Auto) 3.0 (0.0-7.0) % Baso % (Auto) 0.4 (0.0-3.0) % Neut # (Auto) 6.61 (1.7-7.0) K/uL Lymph # (Auto) 1.95 (0.90-2.90) K/uL [place] # (Auto) 0.50 (0.00-0.90) K/UL Eos # (Auto) 0.28 (0.00-0.50) K/uL Baso # (Auto) 0.04 (0.00-0.30) K/uL Abs Immat Gran (auto) 0.01 (0.00-0.30) K/uL Imm/Tot Granulo (auto) 0.1 % Sodium 137 (135-149) mmol/L Potassium 3.8 (3.6-5.1) mmol/L Chloride 104 (96-114) mmol/L Carbon Dioxide 26 (20-32) mmol/L Anion Gap 7 (7-15) mEq/L BUN 14 (5-24) mg/dL Creatinine 0.6 (0.5-1.5) mg/dL Estimated Creat Clear 121.13 Estimated GFR 122 ml/min Glucose 82 (60-115) mg/dL Calcium 9.4 (8.4-10.6) mg/dL C-Reactive Protein 3.0 H (0.5-1.0) mg/dL HCG, Quant < 2.39 mIU/mL Urine Color Yellow (Yellow) Urine Appearance Clear (Clear) Urine pH 6.5 (5.0-8.5) Ur Specific [place] 1.015 (1.000-1.030) Urine Protein Negative (Negative) Urine Glucose (UA) Negative (Negative) Urine Ketones Negative (Negative) Urine Blood 3+ A (Negative) Urine Nitrite Negative (Negative) Urine Bilirubin Negative (Negative) Urine Urobilinogen 0.2 (0.2-1.0) Ur Leukocyte Esterase 1+ A (Negative) Urine RBC 5-10 A (0-2) Urine WBC 2-5 (0-5) Ur Squamous Epith Cells None (None-Few) Urine Bacteria None (None) Blood Type B Positive Antibody Screen NEGATIVE Imaging Data Pelvic ultrasound: Attestation: I have reviewed the pertinent imaging results. My impression: Heterogeneous blood but no obvious signs of retained placenta. Radiologist's impression: Pending at the time of discharge, more than 2 hours old. Ob provider reviewed as well. Discharge Plan Discharge Clinical Impression: Abnormal uterine bleeding, Patient Disposition: Home w/ Parent or Adult Condition: Improved Instructions: Bleeding (ED) Additional Instructions: As we discussed, the bleeding that your having is not entirely normal but thankfully there are no signs of infection, retained products of conception or other complication. I have spoken with the Ob provider and they are recommending that we start you on a medication called Methergine. Your given your 1st dose here in the ED. He will continue taking this about every 6 hours or so for a total of 24 hours. Ideally, your next dose will be at around 1:00 a.m.. Please do not wake to take the medication does take it at your next available awake opportunity at least 4 hours apart. Expect increased bleeding, cramping and some clots as a result of the medication. Light activity is okay but try to avoid unnecessary activity for the next 24 hours. Please update the OB providers if you are still having bleeding larger than a golf ball, significant weakness, severe persistent bleeding, or other signs of complications. Fevers would also not be expected. It is okay to use Tylenol and/or ibuprofen if needed for discomfort. And this medication is safe in breast-feeding. Please call the OB team to update them with her progress in 24- 48 hours and of course sooner if you have any concerns. Activity Level: Activity as Tolerated Discharge Diet: Regular Prescriptions: New methylergonovine 0.2 mg tablet 0.2 mg PO Q6H Qty: 3 0RF No Action ascorbate calcium (vitamin C) 500 mg tablet 500 mg PO QDAY [id number] 29 mg iron- 1 mg-150 mg capsule 1 cap PO QDAY B-complex with vitamin C Tablet 1 tab PO QDAY omega-3 fatty acids 1,000 mg capsule 1,000 mg PO QDAY docusate sodium 100 mg Capsule 100 mg PO DAILY Qty: 60 0RF ibuprofen 600 mg Tablet 600 mg PO Q6H PRN (Reason: pain) Qty: 100 0RF Follow Up/Referrals: Provider,Not a Local [Primary Care Provider] - Stand Alone Forms: [employer] Info Instructions
--- OUTSIDE RECORDS SUMMARY | 2024-01-11 16:13 | XMS_ITS | Encounter Summary ---
Author Organization [facility] Address [address] [place] [address]. [place] [address] Care Team Providers Care Pit Hand Name Role Phone Jeri Liu APRN, CNM Primary Care Provider [phone]- [phone] Reason for Referral * Diagnostic Imaging Ultrasound (Routine) - Pending Review Specialty Diagnoses / Procedures Referred By Contac t Referred To Contact Radiology. Diagnoses related condition, antepartum Procedures [facility] US Comprehensive Single Jeri Liu APRN CNM [facility] [address] [place] [address] Referral ID Status Reason Start Date Expiration Date V isits Requested Visits Authorized [id number] Pending Review 11/17/2023 11/16/2024 1 1 * Consultation (Routine: Next available opening) - Pending Review Specialty Diagnoses / Procedures Referred By Contac t Referred To Contact Diagnoses related condition, antepartum Jeri Liu APRN CNM [facility] [address] [place] [address] [facility] [address] [place] [address] Referral ID Status Reason Start Date Expiration Date V isits Requested Visits Authorized [id number] Pending Review 11/17/2023 11/16/2024 1 1 Question Answer Preferred Location: [facility] [place] LUCY 01/10/2024 Ultrasound Comprehensive US (>than 18 [...] (Latest Contact Info) Description 11/17/2023 Transcribe Orders [facility] [place] [address] [place] [id number] Jeri Liu APRN CNM [address] [address] related condition, antepartum (Primary Dx) Social History [...] documented as of this encounter Results * [facility] US Comprehensive Single (11/18/2023 12:46 PM [...] ? Study Date: ??11/18/2023 11:42am Pat. NO: ??[id number] ?Referring ??MD: JERI LIU Site: ? Limnology Teacher: Gini Joiner RDMS : ??1990 ?Age: ?? [...] lb 4 ?oz EFW by ? Hadlock ([id number]) Head / Face / Neck Biometry: Upset Welding Machine Operator ?5.4 ? mm CM ? 9.8 ? mm Nasal bone ? 12.8 ?mm ANATOMY ----- The following structures appear normal: Head / Neck ? Cranium. Head size. Head shape. Lateral ventricles. Choroid plexus. Midline falx. Cavum septi pellucidi. Cerebellum. Cisterna magna. ? Parenchyma. Thalami. Vermis. ? Neck. Face ? Lips. Nose. Orbits. Lens. Heart / Thorax ?4-chamber view. LVOT view. 3- vessel view. 6-dvrdji-jzpeihe view. Situs. Aortic arch view. Bicaval view. [...] record, and communicating with other health manager medicare marketing and/or care coordination. Procedure Note Dunia Salas MD - 11/18/2023 Comprehensive ----- Pat. Name: ORLANDO VARGAS Study Date: 11/18/2023 11:42am Pat. NO: [id number] Referring MD: JERI LIU Site: Limnology Teacher: Gini Joiner RDMS : 1990 Age: 33 [...] EFW (lb,oz) 5 lb 4oz EFW by Hadlock([id number]) Head / Face / Neck Biometry: Upset Welding Machine Operator 5.4mm CM 9.8mm Nasal bone 12.8mm ANATOMY ----- The following structures appear normal: Head / Neck Cranium. Head size. Head shape.Lateral ventricles. Choroid plexus. Midline falx. Cavum septi pellucidi.Cerebellum. Cisterna magna. Parenchyma. Thalami. Vermis. Neck. Face Lips. Nose. Orbits. Lens. Heart / Thorax 4-chamber view. LVOT view. 3-vesselview. 5-txveaf-uelopdn view. Situs. Aortic arch view. Bicaval view.Superior [...] medical record, andcommunicating with other health manager medicare marketing and/or carecoordination. IMPRESSION ----- 1. Mcclellan at [...] volume appeared normal. Jeri Liu APRN, CNM [facility] US ORDERAB LES documented in this encounter Visit Diagnoses Diagnosis related condition, antepartum- Primary documented in this encounter Care Teams Pit Hand Relationship Specialty Start Date End Date Jeri Liu APRN CNM [address] [address] PCP - General 11/17/23 documented as of this encounter
--- OUTSIDE RECORDS SUMMARY | 2024-01-11 16:13 | XMS_ITS | Encounter Summary ---
Author Organization [facility] Address [address] [place] [address] Care Team Providers Care Knife Setter Assembler Name Role Phone Jeri Liu APRN [facility] Primary Care Provider [phone]- [phone] Reason for Visit * Diagnostic Imaging Ultrasound (Routine) - Pending Review Specialty Diagnoses / Procedures Referred By Jef t Referred To Contact Radiology. Diagnoses related condition, antepartum Procedures [facility] US Comprehensive Single Jeri Liu APRN CNM [facility] [address] [place] [address] Referral ID Status Reason Start Date Expiration Date V isits Requested Visits Authorized [id number] Pending Review 11/17/2023 11/16/2024 1 1 Encounter Details Date Type Department Care Team (Latest Contact Info) Description 11/18/2023 11:33 AM CDT - 11/18/2023 11:59 PM CDT Hospital Encounter [facility] [place] [address] [place] [address] Dunia Salas MD [address] [place] [address] [address] [place] [address] Discharge Disposition: Home or Self [...] Procedure Name Priority Date/Time Associated Diagnosis Comments [facility] US COMPREHENSIVE SINGLE Routine 11/18/2023 12:46 PM CDT related condition, antepartum documented in this encounter Results * [facility] US Comprehensive Single (11/18/2023 12:46 PM [...] ? Study Date: ??11/18/2023 11:42am Pat. NO: ??[id number] ?Referring ??MD: JERI LIU Site: ? Child Care Attendant School: Gini Joiner RDMS : ??1990 ?Age: ?? [...] lb 4 ?oz EFW by ? Hadlock ([id number]) Head / Face / Neck Biometry: Towel Weaver ?5.4 ? mm CM ? 9.8 ? mm Nasal bone ? 12.8 ?mm ANATOMY ----- The following structures appear normal: Head / Neck ? Cranium. Head size. Head shape. Lateral ventricles. Choroid plexus. Midline falx. Cavum septi pellucidi. Cerebellum. Cisterna magna. ? Parenchyma. Thalami. Vermis. ? Neck. Face ? Lips. Nose. Orbits. Lens. Heart / Thorax ?4-chamber view. LVOT view. 3- vessel view. 4-bjbdrm-wehnest view. Situs. Aortic arch view. Bicaval view. [...] record, and communicating with other health health and social care teacher and/or care coordination. Procedure Note Dunia Salas MD - 11/18/2023 Comprehensive ----- Pat. Name: ORLANDO VARGAS Study Date: 11/18/2023 11:42am Pat. NO: [id number] Referring MD: JERI LIU Site: Child Care Attendant School: Gini Joiner RDMS : 1990 Age: 33 [...] EFW (lb,oz) 5 lb 4oz EFW by Hadlock([id number]) Head / Face / Neck Biometry: Towel Weaver 5.4mm CM 9.8mm Nasal bone 12.8mm ANATOMY ----- The following structures appear normal: Head / Neck Cranium. Head size. Head shape.Lateral ventricles. Choroid plexus. Midline falx. Cavum septi pellucidi.Cerebellum. Cisterna magna. Parenchyma. Thalami. Vermis. Neck. Face Lips. Nose. Orbits. Lens. Heart / Thorax 4-chamber view. LVOT view. 3-vesselview. 9-gnzprj-ggxmrem view. Situs. Aortic arch view. Bicaval view.Superior [...] medical record, andcommunicating with other health health and social care teacher and/or carecoordination. IMPRESSION ----- 1. Mcclellan at [...] volume appeared normal. Jeri Liu APRN, CNM [facility] US ORDERAB LES documented in this encounter Visit Diagnoses Not on filedocumented in this encounter Care Teams Knife Setter Assembler Relationship Specialty Start Date End [place] [address] PCP - General 11/17/23 documented as of this encounter
--- OUTSIDE RECORDS SUMMARY | 2024-01-11 16:13 | XMS_ITS | Encounter Summary ---
Author Organization [facility] Address [address] [place] [address]. [place] [address] Care Team Providers Care Media Traffic Manager Name Role Phone Gerda Liu APRN [facility] Primary Care Provider [phone]- [phone] Encounter Details Date Type Department Care Team [...] on filedocumented in this encounter Care Teams Media Traffic Manager Relationship Specialty Start Date End Date Gerda Liu APRN CNM [facility] [address] [place] [address] PCP - General 11/17/23 documented as of this encounter
--- OUTSIDE RECORDS SUMMARY | 2024-01-11 16:13 | XMS_ITS | Encounter Summary ---
Author Organization [facility] Address [address] [facility] [place] [address] Care Team Providers Care Geology Teacher Name Role Phone AlexaJeri ANNAMARIA [facility] Primary Care Provider [phone]- [phone] Reason for Referral * Diagnostic Imaging Ultrasound (Routine) - Pending Review Specialty Diagnoses / Procedures Referred By Contac t Referred To Contact Radiology. Diagnoses Encounter for follow-up ultrasound of anatomy Procedures [facility] US Comprehensive Single F/U Dunia Salas MD [address] [place] [address] Referral ID Status Reason Start Date Expiration Date V isits Requested Visits Authorized [id number] Pending Review 11/18/2023 11/17/2024 1 1 Reason for Visit * Reason Comments Ultrasound L2- Increased CSF wi thin posterior fossa, MCI Encounter Details Date Type Department Care Team (Late st Contact Info) Description 11/18/2023 12:15 PM CDT Office Visit [facility] [place] [address] [facility] [address] [place] [address] Dunia Salas MD [address] [place] [address] Encounter for follow-up ultrasound of [...] PM CDT Patient reports good movement, reports [place] contractions, denies leaking of fluid, or bleeding. SBAR given to KASI MAE, see their note in Epic. documented in this encounter Plan of Treatment Not on file documented as of this encounter Procedures Procedure Name Priority Date/Time Associated Diagnosis Comments [facility] COMPREHENSIVE SINGLE Routine 11/18/2023 12:46 PM CDT related condition, antepartum documented in this encounter Results * [facility] Comprehensive Single F/U (12/09/2023 11:03 AM [...] ? Study Date: ??12/09/2023 10:19am Pat. NO: ??[id number] ?Referring ??MD: JERI LIU Site: ? Interlocking Pavement Installer: Gini Joiner RDMS : ??1990 ?Age: ?? [...] lb 3 ?oz EFW by ? Hadlock ([id number]-FL) Head / Face / Neck Biometry: Coal Drier Operator ?5.3 ? mm CM ? 8.4 ? mm ANATOMY ----- The following structures appear normal: Head / Neck ? Cranium. Head size. Head shape. Lateral ventricles. Midline falx. Cavum septi pellucidi. Cerebellum. Cisterna magna. Thalami. Face ? Lips. Nose. Heart / Thorax ?4-chamber view. RVOT view. LVOT view. 8-bjzfqs-vvpcmdb view. ? Diaphragm. Abdomen ? Stomach. Kidneys. [...] medical record, and communicating with other health director of medicare and/or care coordination. Procedure Note Jannet Marmolejo MD - 12/09/2023 Comp Follow Up ----- Pat. Name: ORLANDO PLUMMER Study Date: 12/09/2023 10:19am Pat. NO: [id number] Referring MD: JERI LIU Site: Interlocking Pavement Installer: Gini Joiner RDMS : 1990 Age: 33 [...] EFW (lb,oz) 7 lb 3oz EFW by Hadlock([id number]-QI-NF-FL) Head / Face / Neck Biometry: Coal Drier Operator 5.3mm CM 8.4mm ANATOMY ----- The following structures appear normal: Head / Neck Cranium. Head size. Head shape.Lateral ventricles. Midline falx. Cavum septi pellucidi. Cerebellum.Cisterna magna. Thalami. Face Lips. Nose. Heart / Thorax 4-chamber view. RVOT view. LVOT view.6-fnekbs-oysduwj view. Diaphragm. Abdomen Stomach. Kidneys. Bladder. Spine [...] and 8lb 9oz babies. Her was also [id number]. This baby feels bigger to her than [...] electronic medical record, andcommunicating with other health director of medicare and/or carecoordination. IMPRESSION ----- 1. Mcclellan at 35w 3d gestational age. 2. Due to advanced gestational age and positive some anatomyremains suboptimally visualized. No anomalies commonly detected byultrasound were identified within the limits of ultrasound. 3. Growth parameters and estimated weight were at the 95th% forgestational age. 4. The amniotic fluid volume appeared normal. Dunia Salas MD Ovi [facility] US ORDERABLE S * [facility] Comprehensive Single (11/18/2023 12:46 PM CDT) Anatomical Region Laterality Modality Ultrasound 11/18/2023 11:4 2 AM CDT Impressions 11/18/2023 1:31 PM CDT IMPRESSION ----- 1. Mccelllan at 32w 3d gestational age. 2. Previously [...] ? Study Date: ??11/18/2023 11:42am Pat. NO: ??[id number] ?Referring ??MD: JERI LIU Site: ? Interlocking Pavement Installer: Gini Joiner RDMS : ??1990 ?Age: ?? [...] lb 4 ?oz EFW by ? Hadlock ([id number]-FL) Head / Face / Neck Biometry: Coal Drier Operator ?5.4 ? mm CM ? 9.8 [...] ?4-chamber view. LVOT view. 3- vessel view. 9-kootql-evyugfb view. Situs. Aortic arch view. Bicaval view. [...] medical record, and communicating with other health director of medicare and/or care coordination. Procedure Note Dunia Salas MD - 11/18/2023 Comprehensive ----- Pat. Name: ORLANDO PLUMMER Study Date: 11/18/2023 11:42am Pat. NO: [id number] Referring MD: JERI LIU Site: Interlocking Pavement Installer: Gini Joiner RDMS : 1990 Age: 33 [...] EFW (lb,oz) 5 lb 4oz EFW by Hadlock([id number]-FL) Head / Face / Neck Biometry: Coal Drier Operator 5.4mm CM 9.8mm Nasal bone 12.8mm ANATOMY ----- The following structures appear normal: Head / Neck Cranium. Head size. Head shape.Lateral ventricles. Choroid plexus. Midline falx. Cavum septi pellucidi.Cerebellum. Cisterna magna. Parenchyma. Thalami. Vermis. Neck. Face Lips. Nose. Orbits. Lens. Heart / Thorax 4-chamber view. LVOT view. 3-vesselview. 9-xtqdyl-zkzklgg view. Situs. Aortic arch view. Bicaval view.Superior [...] electronic medical record, andcommunicating with other health director of medicare and/or carecoordination. IMPRESSION ----- 1. Mcclellan at [...] volume appeared normal. Jeri Liu APRN, CNM [facility] US ORDERAB LES documented in this encounter Visit Diagnoses Diagnosis Encounter for follow-up ultrasound of anatomy- Primary related condition, antepartum Encounter for follow-up ultrasound of anatomy documented in this encounter Care Teams Geology Teacher Relationship Specialty Start Date End Date Jeri Liu APRN CNM [address] [address] PCP - General 11/17/23 documented as of this encounter
--- OUTSIDE RECORDS SUMMARY | 2024-01-11 16:13 | XMS_ITS | Encounter Summary ---
Author Organization [facility] Address [address] [place] [address]. [place] [address] Care Team Providers Care Doctor Of Nurse Anesthesia Name Role Phone Gerda Liu APRN [facility] Primary Care Provider [phone]- [phone] Encounter Details Date Type Department Care Team [...] in this encounter Care Teams Doctor Of Nurse Anesthesia Relationship Specialty Start Date End Date Gerda Liu APRN CNM [facility] [address] [place] [address] PCP - General 11/17/23 documented as of this encounter
--- OUTSIDE RECORDS SUMMARY | 2024-01-11 16:13 | XMS_ITS | Encounter Summary ---
Author Organization [place] Address [address] [place] [address]. [place] [address] Care Team Providers Care Tool Chaser Name Role Phone AlexaJeri ANNAMARIA [facility] Primary Care Provider [phone]- [phone] Reason for Referral * Diagnostic Imaging Ultrasound (Routine) - Pending Review Specialty Diagnoses / Procedures Referred By Contac t Referred To Contact Radiology. Diagnoses Encounter for follow-up ultrasound of anatomy Procedures [facility] US Comprehensive Single Souleymane/Dunia Ruano MD [address] [place] [address] Referral ID Status Reason Start Date Expiration Date V isits Requested Visits Authorized [id number] Pending Review 11/18/2023 11/17/2024 1 1 Reason for Visit * Diagnostic Imaging Ultrasound (Routine) - Pending Review Specialty Diagnoses / Procedures Referred By Contac t Referred To Contact Radiology. Diagnoses Encounter for follow-up ultrasound of anatomy Procedures [facility] US Jeny Comer/Dunia Ruano MD [address] [address] [facility] [address] [address] Referral ID Status Reason Start Date Expiration Date V isits Requested Visits Authorized [id number] Pending Review 11/18/2023 11/17/2024 1 1 Encounter Details Date Type Department Care Team (Latest Contact Info) Description 12/09/2023 10:11 AM CDT - 12/09/2023 11:59 PM CDT Hospital Encounter [facility] Maternal [facility] [address] [facility] [address] [place] [address] Jannet Marmolejo MD [address] [facility] [address] [place] [address] Encounter for follow-up ultrasound of [...] Procedure Name Priority Date/Time Associated Diagnosis Comments [facility] US COMPREHENSIVE SINGLE F/U Routine 12/09/2023 11:03 AM CDT Encounter for follow-up ultrasound of anatomy documented in this encounter Results * [facility] US Comprehensive Single F/U (12/09/2023 11:03 [...] ? Study Date: ??12/09/2023 10:19am Pat. NO: ??[id number] ?Referring ??MD: JERI LIU Site: ? Biology Internship: Gini Joiner RDMS : ??1990 ?Age: ?? [...] lb 3 ?oz EFW by ? Hadlock ([id number]-MD) Head / Face / Neck Biometry: Astronomy Teacher ?5.3 ? mm CM ? 8.4 ? mm ANATOMY ----- The following structures appear normal: Head / Neck ? Cranium. Head size. Head shape. Lateral ventricles. Midline falx. Cavum septi pellucidi. Cerebellum. Cisterna magna. Thalami. Face ? Lips. Nose. Heart / Thorax ?4-chamber view. RVOT view. LVOT view. 8-ixcpfc-pqychiy view. ? Diaphragm. Abdomen ? Stomach. Kidneys. [...] medical record, and communicating with other health rn progressive care unit and/or care coordination. Procedure Note Jannet Marmolejo MD - 12/09/2023 Comp Follow Up ----- Pat. Name: ORLANDO VARGAS Study Date: 12/09/2023 10:19am Pat. NO: [id number] Referring MD: JERI LIU Site: Biology Internship: Gini Joiner RDMS : 1990 Age: 33 [...] EFW (lb,oz) 7 lb 3oz EFW by Hadlock([id number]-FL) Head / Face / Neck Biometry: Astronomy Teacher 5.3mm CM 8.4mm ANATOMY ----- The following structures appear normal: Head / Neck Cranium. Head size. Head shape.Lateral ventricles. Midline falx. Cavum septi pellucidi. Cerebellum.Cisterna magna. Thalami. Face Lips. Nose. Heart / Thorax 4-chamber view. RVOT view. LVOT view.6-rnubyk-xxotsat view. Diaphragm. Abdomen Stomach. Kidneys. Bladder. Spine [...] and 8lb 9oz babies. Her was also [id number]. This baby feels bigger to her than her previous. She has passed her glucose screening. Discussed inthe absence of diabetes is not indicated based solely onfetal size until the EFW > 5000g. We did discuss consideration for delivery at 39 weeks. Return to primary provider for continued care. If you have questions regarding today's evaluation or if [facility] can [facility], please contact the [facility]. anomalies may be present but not detected I spent a total of 10 minutes on the date of this encounter includingpreparing to see the patient (reviewing medical records/tests), counselingand discussing the plan of care, documenting the visit in the electronic medical record, andcommunicating with other health rn progressive care unit and/or carecoordination. IMPRESSION ----- 1. Mcclellan at 35w 3d gestational age. 2. Due to advanced gestational age and positive some anatomyremains suboptimally visualized. No anomalies commonly detected byultrasound were identified within the limits of ultrasound. 3. Growth parameters and estimated weight were at the 95th% forgestational age. 4. The amniotic fluid volume appeared normal. Dunia Salas MD IMG [facility] US ORDERABLE S documented in this encounter Visit Diagnoses Diagnosis Encounter for follow-up ultrasound of anatomy documented in this encounter Care Teams Tool Chaser Relationship Specialty Start Date End Date Jeri Liu APRN CNM [address] [address] PCP - General 11/17/23 documented as of this encounter
--- OUTSIDE RECORDS SUMMARY | 2024-01-11 16:13 | XMS_ITS | Clinical Summary ---
Author Organization [place] Address [address] [place] [address]. [place] [address] Care Team Providers Care Director Of Strategic Alliances Name Role Phone Jeri Liu APRN [facility] Primary Care Provider [phone]- [phone] Jannet Marmolejo MD Unavailable [phone] Allergies Active Allergy Reactions Criticality Noted Date Comments Sulfa Antibiotics 05/30/2008 Noted in 05/28/08 ER Encounters Date Type Department Care Team Description 12/09/2023 10:45 AM CDT Office Visit [facility] [address] [facility] [address] [place] [address] Jannet Marmolejo MD related condition, antepartum (Primary Dx); macrosomia during in third trimester, single or unspecified fetus 12/09/2023 10:11 AM CDT - 12/09/2023 11:59 PM CDT Hospital Encounter [facility] [address] [facility] [address] [place] [address] Jannet Marmolejo MD Encounter for follow-up ultrasound of anatomy Discharge Disposition: Home or Self Care 12/09/2023 Travel 11/18/2023 12:15 PM CDT Office Visit [facility] [address] [place] [address] Dunia Salas MD Encounter for follow-up ultrasound of anatomy (Primary Dx); related condition, antepartum 11/18/2023 11:33 AM CDT - 11/18/2023 11:59 PM CDT Hospital Encounter [facility] [address] [facility] [address] [place] [address] Dunia Salas MD Discharge Disposition: Home or Self Care 11/18/2023 Travel 11/17/2023 Medical Correspondence [facility] Info Mgmt [facility] [address] [place] [address] Scan, Non-Provider 11/17/2023 PRE VISIT [facility] [place] [address] [facility] [address] [place] [address] Cecy Bedoya RN Ultrasound (L2- Increased CSF within posterior fossa, MCI) 11/17/2023 Transcribe Orders [facility] [place] [address] [facility] [address] [place] [address] Jeri Liu APRN CNM related condition, antepartum [...] Procedure Name Priority Date/Time Associated Diagnosis Comments [facility] COMPREHENSIVE SINGLE F/U Routine 12/09/2023 11:03 AM CDT Encounter for follow-up ultrasound of anatomy [facility] COMPREHENSIVE SINGLE Routine 11/18/2023 12:46 PM CDT related condition, antepartum from Last 3 Months Results * [facility] Comprehensive Single F/U (12/09/2023 11:03 AM [...] ? Study Date: ??12/09/2023 10:19am Pat. NO: ??[id number] ?Referring ??MD: JERI LIU Site: ? Cosmetics Supervisor: Gini Joiner RDMS : ??1990 ?Age: [...] lb 3 ?oz EFW by ? Hadlock (MHY-[id number]-EG-UT) Head / Face / Neck Biometry: Security Police ?5.3 ? mm CM ? 8.4 ? mm ANATOMY ----- The following structures appear normal: Head / Neck ? Cranium. Head size. Head shape. Lateral ventricles. Midline falx. Cavum septi pellucidi. Cerebellum. Cisterna magna. Thalami. Face ? Lips. Nose. Heart / Thorax ?4-chamber view. RVOT view. LVOT view. 7-lttdwd-qdygyye view. ? Diaphragm. Abdomen ? Stomach. Kidneys. [...] medical record, and communicating with other health intensive care unit nurse and/or care coordination. Procedure Note Jannet Marmolejo MD - 12/09/2023 Comp Follow Up ----- Pat. Name: ORLANDO VARGAS Study Date: 12/09/2023 10:19am Pat. NO: [id number] Referring MD: JERI LIU Site: Cosmetics Supervisor: Gini Joiner RDMS : 1990 Age: [...] EFW (lb,oz) 7 lb 3oz EFW by Hadlock([id number]-MF-[id number]-FL) Head / Face / Neck Biometry: Security Police 5.3mm CM 8.4mm ANATOMY ----- The following structures appear normal: Head / Neck Cranium. Head size. Head shape.Lateral ventricles. Midline falx. Cavum septi pellucidi. Cerebellum.Cisterna magna. Thalami. Face Lips. Nose. Heart / Thorax 4-chamber view. RVOT view. LVOT view.7-rljvzc-rsbnmdz view. Diaphragm. Abdomen Stomach. Kidneys. Bladder. Spine [...] and 8lb 9oz babies. Her was also [id number]. This baby feels bigger to her than her previous. She has passed her glucose screening. Discussed inthe absence of diabetes is not indicated based solely onfetal size until the EFW > 5000g. We did discuss consideration for delivery at 39 weeks. Return to primary provider for continued care. If you have questions regarding today's evaluation or if we can be [facility], please contact the [facility]. anomalies may be present but not detected I spent a total of 10 minutes on the date of this encounter includingpreparing to see the patient (reviewing medical records/tests), counselingand discussing the plan of care, documenting the visit in the electronic medical record, andcommunicating with other health intensive care unit nurse and/or carecoordination. IMPRESSION ----- 1. Mcclellan [...] [facility] ORDERABLE S * [facility] Comprehensive Single (11/18/2023 12:46 PM CDT) [...] ? Study Date: ??11/18/2023 11:42am Pat. NO: ??[id number] ?Referring ??MD: JERI LIU Site: ? Cosmetics Supervisor: Gini Joiner RDMS : ??1990 ?Age: [...] lb 4 ?oz EFW by ? Hadlock (EEV-GT-PN-FL) Head / Face / Neck Biometry: Security Police ?5.4 ? mm CM ? 9.8 ? mm Nasal bone ? 12.8 ?mm ANATOMY ----- The following structures appear normal: Head / Neck ? Cranium. Head size. Head shape. Lateral ventricles. Choroid plexus. Midline falx. Cavum septi pellucidi. Cerebellum. Cisterna magna. ? Parenchyma. Thalami. Vermis. ? Neck. Face ? Lips. Nose. Orbits. Lens. Heart / Thorax ?4-chamber view. LVOT view. 3- vessel view. 2-nkxzlp-kpdcoqd view. Situs. Aortic arch view. Bicaval view. [...] medical record, and communicating with other health intensive care unit nurse and/or care coordination. Procedure Note Dunia Salas MD - 11/18/2023 Comprehensive ----- Pat. Name: ORLANDO VARGAS Study Date: 11/18/2023 11:42am Pat. NO: [id number] Referring MD: JERI LIU Site: Cosmetics Supervisor: Gini Joiner RDMS : 1990 Age: 33 ----- INDICATION ----- Enlarged cisterna magna and marginal cord insertion on outsideultrasound. METHOD ----- Transabdominal ultrasound examination. View: Suboptimal view: limited bylate gestational age. Suboptimal view: limited by position ----- Mcclellan . Number of fetuses: 1 DATING ----- DateDetailsGest. age LCUY LMP w + 3 d 01/10/2024 U/S [...] EFW (lb,oz) 5 lb 4oz EFW by Hadlock([id number]-FL) Head / Face / Neck Biometry: Security Police 5.4mm CM 9.8mm Nasal bone 12.8mm ANATOMY ----- The following structures appear normal: Head / Neck Cranium. Head size. Head shape.Lateral ventricles. Choroid plexus. Midline falx. Cavum septi pellucidi.Cerebellum. Cisterna magna. Parenchyma. Thalami. Vermis. Neck. Face Lips. Nose. Orbits. Lens. Heart / Thorax 4-chamber view. LVOT view. 3-vesselview. 2-qbkytd-gotyqfo view. Situs. Aortic arch view. Bicaval view.Superior [...] electronic medical record, andcommunicating with other health intensive care unit nurse and/or carecoordination. IMPRESSION ----- 1. Mcclellan [...] fluid volume appeared normal. Jeri Liu APRN [facility] ORDERAB LES from Last 3 Months Care Teams Director Of Strategic Alliances Relationship Specialty Start Date End Date Jeri Liu APRN CNM [facility] [address] [place] [address] PCP - General 11/17/23 Jannet Marmolejo MD [address] [id number] Assigned OBGYN Provider 12/28/23
--- OUTSIDE RECORDS SUMMARY | 2024-01-11 16:13 | XMS_ITS | Referral Summary ---
Author Organization [place] Address [address] [place] [address]. [place] [address] Care Team Providers Care Bakery Worker Name Role Phone Alexa Jeri YIN [facility] Primary Care Provider +1- [phone] Jannet Marmolejo MD Unavailable [phone] Encounters Date Type Department Care Team Description 12/09/2023 Travel 12/09/2023 10:45 AM CDT Office Visit [facility] [address] [facility] [address] [place] [phone] Jannet Marmolejo MD related condition, antepartum (Primary Dx); macrosomia during in third trimester, single or unspecified fetus 12/09/2023 10:11 AM CDT - 12/09/2023 11:59 PM CDT Hospital Encounter [facility] Maternal Medicine [facility] [address] [place] [phone] Jannet Marmolejo MD Encounter for follow-up ultrasound of anatomy Discharge Disposition: Home or Self Care 11/18/2023 Travel 11/18/2023 12:15 PM CDT Office Visit [facility] [address] [facility] [address] [place] [phone] Dunia Salas MD Encounter for follow-up ultrasound of anatomy (Primary Dx); related condition, antepartum 11/18/2023 11:33 AM CDT - 11/18/2023 11:59 PM CDT Hospital Encounter [facility] [address] [place] [address] Dunia Salas MD Discharge Disposition: Home or Self Care 11/17/2023 Medical Correspondence [facility] Info Mgmt [facility] [address] [place] [address] Scan, Non-Provider 11/17/[address] [facility] Medicine [place] [address] [place] [address] Cecy Bedoya RN Ultrasound (L2- Increased CSF within posterior fossa, MCI) 11/17/[address] [facility] Medicine [place] [address] [facility] [address] [place] [address] Jeri Liu APRN CNM related condition, antepartum [...] Procedure Name Priority Date/Time Associated Diagnosis Comments [facility] US COMPREHENSIVE SINGLE F/U Routine 12/09/2023 11:03 AM CDT Encounter for follow-up ultrasound of anatomy [facility] US COMPREHENSIVE SINGLE Routine 11/18/2023 12:46 PM CDT related condition, antepartum from Last 3 Months Results * [facility] US Comprehensive Single F/U (12/09/2023 11:03 [...] ? Study Date: ??12/09/2023 10:19am Pat. NO: ??[id number] ?Referring ??: JERI LIU Site: ? Agricultural Technician: Gini Joiner RDMS : ??1990 ?Age: ?? [...] lb 3 ?oz EFW by ? Hadlock ([id number]) Head / Face / Neck Biometry: Front Desk Person ?5.3 ? mm CM ? 8.4 ? mm ANATOMY ----- The following structures appear normal: Head / Neck ? Cranium. Head size. Head shape. Lateral ventricles. Midline falx. Cavum septi pellucidi. Cerebellum. Cisterna magna. Thalami. Face ? Lips. Nose. Heart / Thorax ?4-chamber view. RVOT view. LVOT view. 3-nzenap-uaeettc view. ? Diaphragm. Abdomen ? Stomach. Kidneys. [...] medical record, and communicating with other health spiritual care coordinator and/or care coordination. Procedure Note Jannet Marmolejo MD - 12/09/2023 Comp Follow Up ----- Pat. Name: ORLANDO VARGAS Study Date: 12/09/2023 10:19am Pat. NO: [id number] Referring MD: JERI LIU Site: Agricultural Technician: Gini Joiner RDMS : 1990 Age: 33 [...] EFW (lb,oz) 7 lb 3oz EFW by Hadlock([id number]) Head / Face / Neck Biometry: Front Desk Person 5.3mm CM 8.4mm ANATOMY ----- The following structures appear normal: Head / Neck Cranium. Head size. Head shape.Lateral ventricles. Midline falx. Cavum septi pellucidi. Cerebellum.Cisterna magna. Thalami. Face Lips. Nose. Heart / Thorax 4-chamber view. RVOT view. LVOT view.2-sgiygx-aqxgwog view. Diaphragm. Abdomen Stomach. Kidneys. Bladder. Spine [...] and 8lb 9oz babies. Her was also [id number]. This baby feels bigger to her than [...] electronic medical record, andcommunicating with other health spiritual care coordinator and/or carecoordination. IMPRESSION ----- 1. Mcclellan at 35w 3d gestational age. 2. Due to advanced gestational age and positive some anatomyremains suboptimally visualized. No anomalies commonly detected byultrasound were identified within the limits of ultrasound. 3. Growth parameters and estimated weight were at the 95th% forgestational age. 4. The amniotic fluid volume appeared normal. Dunia Salas MD [facility] US ORDERABLE S * [facility] US Comprehensive Single (11/18/2023 12:46 PM [...] ? Study Date: ??11/18/2023 11:42am Pat. NO: ??[id number] ?Referring ??MD: JERI LIU Site: ? Agricultural Technician: Gini Joiner RDMS : ??1990 ?Age: ?? [...] lb 4 ?oz EFW by ? Hadlock ([id number]-FL) Head / Face / Neck Biometry: Front Desk Person ?5.4 ? mm CM ? 9.8 ? mm Nasal bone ? 12.8 ?mm ANATOMY ----- The following structures appear normal: Head / Neck ? Cranium. Head size. Head shape. Lateral ventricles. Choroid plexus. Midline falx. Cavum septi pellucidi. Cerebellum. Cisterna magna. ? Parenchyma. Thalami. Vermis. ? Neck. Face ? Lips. Nose. Orbits. Lens. Heart / Thorax ?4-chamber view. LVOT view. 3- vessel view. 9-uzwyoo-ykyckvw view. Situs. Aortic arch view. Bicaval view. [...] medical record, and communicating with other health spiritual care coordinator and/or care coordination. Procedure Note Dunia Salas MD - 11/18/2023 Comprehensive ----- Pat. Name: ORLANDO VARGAS Study Date: 11/18/2023 11:42am Pat. NO: [id number] Referring MD: JERI LIU Site: Agricultural Technician: Gini Joiner RDMS : 1990 Age: 33 [...] EFW (lb,oz) 5 lb 4oz EFW by Gregg([id number]-FL) Head / Face / Neck Biometry: Front Desk Person 5.4mm CM 9.8mm Nasal bone 12.8mm ANATOMY ----- The following structures appear normal: Head / Neck Cranium. Head size. Head shape.Lateral ventricles. Choroid plexus. Midline falx. Cavum septi pellucidi.Cerebellum. Cisterna magna. Parenchyma. Thalami. Vermis. Neck. Face Lips. Nose. Orbits. Lens. Heart / Thorax 4-chamber view. LVOT view. 3-vesselview. 4-qwnskf-qkiovad view. Situs. Aortic arch view. Bicaval view.Superior [...] electronic medical record, andcommunicating with other health spiritual care coordinator and/or carecoordination. IMPRESSION ----- 1. Mcclellan at [...] amniotic fluid volume appeared normal. Jeri RIOS [facility] ORDERAB LES from Last 3 Months Care Teams Bakery Worker Relationship Specialty Start Date End Date Jeri Liu APRN CNM [facility] [address] [place] [address] PCP - General 11/17/23 Jannet Marmolejo MD [address] [address] Assigned OBGYN Provider 12/28/23
--- OUTSIDE RECORDS SUMMARY | 2024-01-11 16:13 | XMS_ITS | Encounter Summary ---
Author Organization [place] Address [facility] [place] [address] Care Team Providers Care Coil Cleaner Name Role Phone Gerda Liu APRN, CNM Primary Care Provider [phone]- [phone] Encounter Details Date Type Department Care Team (Late st Contact Info) Description 11/17/2023 Medical Correspondence [facility] Mgmt [facility] [address] [place] [address] Scan, Non-Provider Social History Tobacco [...] on filedocumented in this encounter Care Teams Coil Cleaner Relationship Specialty Start Date End Date Gerda Liu APRN CNM [facility] [address] [place] [address] PCP - General 11/17/23 documented as of this encounter
--- OUTSIDE RECORDS SUMMARY | 2024-01-11 16:13 | XMS_ITS | Encounter Summary ---
Author Organization [place] Address [address] [place] [address]. [place] [address] Care Team Providers Care Long Chain Dyeing Machine Operator Name Role Phone Unavailable Primary Care Provider Unavailabl e Encounter Details Date Type Department Care Team (Late st Contact Info) Description 05/28/2008 4:15 PM [facility] in [facility] [address] [place] [address] Bunny Hernández MD [address] [place], [place] [address] Social History Tobacco Use Types Packs/Day Years [...]
--- OUTSIDE RECORDS SUMMARY | 2024-01-11 16:13 | XMS_ITS | Encounter Summary ---
Author Organization [place] Address [address] [facility] [place] [address] Care Team Providers Care Floriculture Teacher Name Role Phone Alexa Gerda YIN [facility] Primary Care Provider [phone]- [phone] Reason for Visit * Reason Comments Ultrasound RL2-subopt Encounter Details Date Type Department Care Team (Late st Contact Info) Description 12/09/2023 10:45 AM CDT Office Visit [facility] Maternal Medicine Center [place] [address] [facility] [address] [place] [address] Jannet Marmolejo MD [address] [facility] [address] [place] [address] related condition, antepartum (Primary Dx); [...] in the Maternal- Medicine Center at the [facility] today. For a detailed report of the ultrasound examination, please see the ultrasound report which can be found under the imaging tab. If you have questions regarding today's evaluation or if we can be of further service, please contact the Maternal- Medicine Center. Jannet Marmolejo MD Custodian Supervisor, CAUSE ANALYST Maternal- Medicine [phone] (Pager) documented in this encounter Nursing Notes [...] fetus documented in this encounter Care Teams Floriculture Teacher Relationship Specialty Start Date End Date Gerda Liu APRN CNM [address] [address] PCP - General 11/17/23 documented as of this encounter
--- OUTSIDE RECORDS SUMMARY | 2024-01-11 16:13 | XMS_ITS | Encounter Summary ---
Author Organization [place] Address [address] [place] [address]. [place] [address] Care Team Providers Care Drop Forge Hand Name Role Phone Gerda Liu APRN, CNM Primary Care Provider [phone]- [phone] Reason for Visit * Reason Comments Ultrasound L2- Increased CSF wi thin posterior fossa, MCI Encounter Details Date Type Department Care Team (Late st Contact Info) Description 11/17/2023 PRE VISIT [facility] Maternal Medicine Center [place] [address] [facility] [address] [place] [address] Cecy Bedoya RN Ultrasound (L2- [...] on filedocumented in this encounter Care Teams Drop Forge Hand Relationship Specialty Start Date End Date Gerda Liu APRN CNM [facility] [address] [place] [address] PCP - General 11/17/23 documented as of this encounter
--- OUTSIDE RECORDS SUMMARY | 2024-01-11 16:13 | XMS_ITS | Clinical Summary ---
Author Organization [email or web address] [facility] Address [place], [place] [address] Care Team Providers Care Transmission System Operator Name Role Phone Unavailable Primary Care [...] Comments Blood Pressure 117/75 03/24/2019 8:25 AM GLOBAL SALES MANAGER Pulse 80 03/24/2019 8:25 AM GLOBAL SALES MANAGER Temperature 36.7 ??C (98 ??F) 03/24/2019 8:25 AM GLOBAL SALES MANAGER Respiratory Rate - - Oxygen Saturation 98% 03/24/2019 8:25 AM GLOBAL SALES MANAGER Inhaled Oxygen Concentration - - Weight 64.5 kg (142 lb 3.2 oz) 03/24/2019 8:25 A M GLOBAL SALES MANAGER Height 165.1 cm (5' 5) 03/24/2019 8:25 AM GLOBAL SALES MANAGER Body Mass Index 23.66 03/24/2019 8:25 AM GLOBAL SALES MANAGER Plan of Treatment Health Maintenance Due Date [...] Procedure Name Priority Date/Time Associated Diagnosis Comments BRUSH MAKER MACHINE THIN PREP PAP SCREEN IMAGED Routine 08/02/2019 4:15 PM CDT from Last 3 Months or Most Recently Relevant to Health Maintenance Results * BRUSH MAKER MACHINE THIN PREP PAP SCREEN IMAGED (08/02/2019 4:15 PM CDT) Case Report Gynecologic Cytology Report ? Case: [id number] ? Authorizing Provider: ??Laura Montez PA-C ?Collected: ? 08/02/2019 1615 ? Ordering Location: ? [facility] ?Received: ?08/04/2019 0849 ? First Screen: ?Romina Baxter ? Specimen: ?BRUSH MAKER MACHINE ThinPrep Vial Screening, Cervical/Vaginal ? 08/04/2019 5:55 PM CDT [facility] INTERPRETATION/ RESULT NEGATIVE FOR INTRAEPITHELIAL LESION OR MALIGNANCY (NIL) (none) 08/04/2019 5:55 PM CDT [facility] IMEN ADEQUACY Satisfactory for evaluation No endocervical component seen in a patient Excessive cytolysis/autolys is 08/04/2019 5:55 PM CDT [facility] HPV REQUEST HPV if ASCUS 08/04/2019 5:55 PM CDT [facility] Date of LMP 06/06/2019 08/04/2019 5:55 PM CDT [facility] Last Pap Result 0 5:55 PM CDT [facility] Comment:neg Menstrual Status 08/04/2019 5:55 PM CDT [facility] Additional Information 08/04/2019 5:55 PM CDT [facility] Comment: Interpreted at [facility] Scandid [facility] - [address], [place] [address] Automated Review Successful 08/04/2019 5:55 PM CDT [facility] Comment:Specimen processed s uccessfully by automated facilities maintenance worker device, ThinPrep Imaging System, [employer] Note The pap test is a [...] and malignant lesions. 08/04/2019 5:55 PM CDT [facility] Other (Cervical/Vagina l) 08/02/2019 4:15 PM CDT 08/04/2019 8:49 AM CDT July Melida WAN PATHOLOGY/CYTOLOGY [facility] [address] [place] [address], [place] from Last 3 Months or Most Recently Relevant to Health Maintenance
[2024-01-11 16:45] LABS: Basophils Absolute Auto 0.04 K/uL (0.00-0.30); Basophils Percent Auto 0.4 % (0.0-3.0); Eosinophils Absolute Auto 0.28 K/uL (0.00-0.50); Hematocrit 40.8 % (33.0-51.0); Hemoglobin* 13.7 gm/dL (12.0-16.0); Immature Granulocytes Abs Auto 0.01 K/uL (0.00-0.30); Immature Granulocytes Pct Auto 0.1 %; Lymphocytes Absolute Auto 1.95 K/uL (0.90-2.90); Lymphocytes Percent Auto 20.8 % (20-44); Mean Corpuscular HGB Conc 34 gm/dL (32-36); Mean Corpuscular Hemoglobin 30 pg (26-34); Mean Corpuscular Volume 91 fL (80-100); Monocytes Percent Auto 5.1 % (0.0-11.0); Neutrophils Absolute Auto 6.61 K/uL (1.7-7.0); Neutrophils Percent Auto 70.6 % (42.0-72.0); Platelet Count* 342 K/uL (140-440); RDW Coefficient of Variation % 12.3 % (11.5-15.5); Red Blood Count 4.51 m/uL (4.00-5.20); White Blood Count* 9.37 K/uL (4.50-11.00)
[2024-01-11 16:48] LABS: Slide Review Reflex No
[2024-01-11 16:57] LABS: Chloride* 104 mmol/L (96-114); Sodium* 137 mmol/L (135-149)
[2024-01-11 16:58] LABS: Potassium* 3.8 mmol/L (3.6-5.1)
[2024-01-11 17:00] LABS: Creatinine* 0.6 mg/dL (0.5-1.5); Est. Creatinine Clearance* 121.13; Estimated Glomerular Filt Rate 122 ml/min
[2024-01-11 17:01] LABS: Anion Gap 7 mEq/L (7-15); Blood Urea Nitrogen* 14 mg/dL (5-24); Calcium* 9.4 mg/dL (8.4-10.6); Carbon Dioxide* 26 mmol/L (20-32); Glucose* 82 mg/dL (60-115)
[2024-01-11 17:24] LABS: HCG Quantitative* < 2.39 mIU/mL
[2024-01-11 17:55] VITALS: BP 141/92; PULSE 71; RESP 18; O2SAT 97
[2024-01-11] MEDS: METHYLERGONOVINE MALEATE 0.2 MG TABLET PO (19:17)
== END 2024-01-11 19:24 | disposition home or self-care (01) ==
PROVIDERS: Emergency Provider Family Medicine
DX: O72.2 Delayed and secondary postpartum hemorrhage (principal); N93.9 Abnormal uterine and vaginal bleeding, unspecified
CPT/HCPCS: 36415; 76856; 80048; 81001; 84702; 85025; 86140; 86850; 86900; 86901; 87086; 99284; A9270

== ENCOUNTER 2024-01-14 14:20 | Outpatient (CLI) | payer BC, SELFPAY ==
--- OUTSIDE RECORDS SUMMARY | 2024-01-14 14:26 | XMS_ITS | Encounter Summary ---
Author Organization [place] Address [address] [place] [address]. [place] [address] Care Team Providers Care Lock Maintenance Supervisor Name Role Phone Gerda Liu APRN, CNM Primary Care Provider [phone]- [phone] Reason for Visit * Reason Comments Ultrasound L2- Increased CSF wi thin posterior fossa, MCI Encounter Details Date Type Department Care Team (Late st Contact Info) Description 11/17/2023 PRE VISIT [facility] Maternal Medicine Center [place] [address] [facility] [address] [place] [address] Cecy Bedoya RN Ultrasound (L2- [...] on filedocumented in this encounter Care Teams Lock Maintenance Supervisor Relationship Specialty Start Date End Date Gerda Liu APRN CNM [facility] [address] [place] [address] PCP - General 11/17/23 documented as of this encounter
--- OUTSIDE RECORDS SUMMARY | 2024-01-14 14:26 | XMS_ITS | Encounter Summary ---
Author Organization [place] Address [address] [facility] [place] [address] Care Team Providers Care Supervisor Vegetable Farming Name Role Phone Jeri Liu APRN [facility] Primary Care Provider [phone]- [phone] Reason for Visit * Diagnostic Imaging Ultrasound (Routine) - Pending Review Specialty Diagnoses / Procedures Referred By Jef t Referred To Contact Radiology. Diagnoses related condition, antepartum Procedures [facility] US Comprehensive Single Jeri Liu APRN CNM [facility] [address] [place] [address] Referral ID Status Reason Start Date Expiration Date V isits Requested Visits Authorized [id number] Pending Review 11/17/2023 11/16/2024 1 1 Encounter Details Date Type Department Care Team (Latest Contact Info) Description 11/18/2023 11:33 AM CDT - 11/18/2023 11:59 PM CDT Hospital Encounter [facility] Maternal Medicine Center [place] [address] [facility] [address] [place] [address] Dunia Salas MD [address] [place] [address] [address] [place] [address] Discharge Disposition: Home or Self [...] Procedure Name Priority Date/Time Associated Diagnosis Comments [facility] US COMPREHENSIVE SINGLE Routine 11/18/2023 12:46 PM CDT related condition, antepartum documented in this encounter Results * [facility] US Comprehensive Single (11/18/2023 12:46 [...] ? Study Date: ??11/18/2023 11:42am Pat. NO: ??[id number] ?Referring ??MD: JERI LIU Site: ? Associate Sales: Gini Joiner RDMS : ??1990 ?Age: ?? [...] lb 4 ?oz EFW by ? Hadlock ([id number]) Head / Face / Neck Biometry: Academic Services Coordinator ?5.4 ? mm CM ? 9.8 [...] ?4-chamber view. LVOT view. 3- vessel view. 8-jnrizi-lynygpb view. Situs. Aortic arch view. Bicaval view. [...] medical record, and communicating with other health direct care staffer and/or care coordination. Procedure Note Dunia Salas MD - 11/18/2023 Comprehensive ----- Pat. Name: ORLANDO VARGAS Study Date: 11/18/2023 11:42am Pat. NO: [id number] Referring MD: JERI LIU Site: Associate Sales: Gini Joiner RDMS : 1990 Age: 33 [...] EFW (lb,oz) 5 lb 4oz EFW by Hadlock([id number]) Head / Face / Neck Biometry: Academic Services Coordinator 5.4mm CM 9.8mm Nasal bone 12.8mm ANATOMY ----- The following structures appear normal: Head / Neck Cranium. Head size. Head shape.Lateral ventricles. Choroid plexus. Midline falx. Cavum septi pellucidi.Cerebellum. Cisterna magna. Parenchyma. Thalami. Vermis. Neck. Face Lips. Nose. Orbits. Lens. Heart / Thorax 4-chamber view. LVOT view. 3-vesselview. 4-tmibqs-vvrbgbw view. Situs. Aortic arch view. Bicaval view.Superior [...] electronic medical record, andcommunicating with other health direct care staffer and/or carecoordination. IMPRESSION ----- 1. Mcclellan at [...] appeared normal. Jeri Liu APRN, CNM [facility] US ORDERAB LES documented in this encounter Visit Diagnoses Not on filedocumented in this encounter Care Teams Supervisor Vegetable Farming Relationship Specialty Start Date End Date [place] [address] PCP - General 11/17/23 documented as of this encounter
--- OUTSIDE RECORDS SUMMARY | 2024-01-14 14:26 | XMS_ITS | Encounter Summary ---
Author Organization [place] Address [facility] [address] Care Team Providers Care Vp Analysis Name Role Phone Gerda Liu APRN, CNM Primary Care Provider [phone]- [phone] Encounter Details Date Type Department Care Team (Late st Contact Info) Description 11/17/[address] [facility] Mgmt [facility] [address] [place] [address] Scan, Non-Provider Social History Tobacco [...] on filedocumented in this encounter Care Teams Vp Analysis Relationship Specialty Start Date End Date Gerda Liu APRN CNM [facility] [address] [place] [address] PCP - General 11/17/23 documented as of this encounter
--- OUTSIDE RECORDS SUMMARY | 2024-01-14 14:26 | XMS_ITS | Encounter Summary ---
Author Organization [place] Address [address] [facility] [place] [address] Care Team Providers Care Adjunct Professor Of English Name Role Phone Alexa Gerda YIN [facility] Primary Care Provider +1- [phone] Reason for Visit * Reason Comments Ultrasound RL2-subopt Encounter Details Date Type Department Care Team (Late st Contact Info) Description 12/09/2023 10:45 AM CDT Office Visit [facility] Maternal Medicine Center [place] [address] [facility] [address] [place] [address] Jannet Marmolejo MD [address] [facility] [address] [place] [address] related condition, antepartum (Primary Dx); [...] in the Maternal- Medicine Center at the [facility] today. For a detailed report of the ultrasound examination, please see the ultrasound report which can be found under the imaging tab. If you have questions regarding today's evaluation or if we can be of further service, please contact the Maternal- Medicine Center. Jannet Marmolejo MD Lead Consultant, QUALITY CONTROL SPECIALIST Maternal- Medicine [phone] (Pager) documented in this encounter Nursing Notes [...] fetus documented in this encounter Care Teams Adjunct Professor Of English Relationship Specialty Start Date End Date Gerda Liu APRN CNM [address] [address] PCP - General 11/17/23 documented as of this encounter
--- OUTSIDE RECORDS SUMMARY | 2024-01-14 14:26 | XMS_ITS | Clinical Summary ---
Author Organization [place] Address [address] [place] [address]. [place] [address] Care Team Providers Care Environment Coordinator Name Role Phone Jeri Liu APRN [facility] Primary Care Provider [phone]- [phone] Jannet Marmolejo MD Unavailable [phone] Allergies Active Allergy Reactions Criticality Noted Date Comments Sulfa Antibiotics 05/30/2008 Noted in 05/28/08 ER Encounters Date Type Department Care Team Description 12/09/2023 10:45 AM CDT Office Visit [facility] [address] [facility] [address] [place] [address] Jannet Marmolejo MD related condition, antepartum (Primary Dx); macrosomia during in third trimester, single or unspecified fetus 12/09/2023 10:11 AM CDT - 12/09/2023 11:59 PM CDT Hospital Encounter [facility] [address] [facility] [address] [place] [address] Jannet Marmolejo MD Encounter for follow-up ultrasound of anatomy Discharge Disposition: Home or Self Care 12/09/2023 Travel 11/18/2023 12:15 PM CDT Office Visit [facility] [address] [place] [address] Dunia Salas MD Encounter for follow-up ultrasound of anatomy (Primary Dx); related condition, antepartum 11/18/2023 11:33 AM CDT - 11/18/2023 11:59 PM CDT Hospital Encounter [facility] [address] [facility] [address] [place] [address] Dunia Salas MD Discharge Disposition: Home or Self Care 11/18/2023 Travel 11/17/2023 Medical Correspondence [facility] Info Mgmt [facility] [address] [place] [address] Scan, Non-Provider 11/17/2023 PRE VISIT [facility] [place] [address] [facility] [address] [place] [address] Cecy Bedoya RN Ultrasound (L2- Increased CSF within posterior fossa, MCI) 11/17/2023 Transcribe Orders [facility] [place] [address] [facility] [address] [place] [address] Jeri Liu APRN CNM related condition, antepartum [...] Procedure Name Priority Date/Time Associated Diagnosis Comments [facility] US COMPREHENSIVE SINGLE F/U Routine 12/09/2023 11:03 AM CDT Encounter for follow-up ultrasound of anatomy [facility] US COMPREHENSIVE SINGLE Routine 11/18/2023 12:46 PM CDT related condition, antepartum from Last 3 Months Results * [facility] US Comprehensive Single F/U (12/09/2023 11:03 AM [...] ? Study Date: ??12/09/2023 10:19am Pat. NO: ??[id number] ?Referring ??MD: JERI LIU Site: ? Warehouse Handler: Gini Joiner RDMS : ??1990 ?Age: ?? [...] lb 3 ?oz EFW by ? Hadlock ([id number]-JC-NM) Head / Face / Neck Biometry: Canine Service Instructor Trainer ?5.3 ? mm CM ? 8.4 ? mm ANATOMY ----- The following structures appear normal: Head / Neck ? Cranium. Head size. Head shape. Lateral ventricles. Midline falx. Cavum septi pellucidi. Cerebellum. Cisterna magna. Thalami. Face ? Lips. Nose. Heart / Thorax ?4-chamber view. RVOT view. LVOT view. 2-zsxejd-gttzcdp view. ? Diaphragm. Abdomen ? Stomach. Kidneys. [...] medical record, and communicating with other health daycare assistant and/or care coordination. Procedure Note Jannet Marmolejo MD - 12/09/2023 Comp Follow Up ----- Pat. Name: ORLANDO VARGAS Study Date: 12/09/2023 10:19am Pat. NO: [id number] Referring MD: JERI LIU Site: Warehouse Handler: Gini Joiner RDMS : 1990 Age: 33 ----- INDICATION ----- Follow up suboptimal anatomy. METHOD ----- Transabdominal ultrasound examination. View: Suboptimal view: limited byfetal position. Suboptimal view: limited by late gestational age. ----- Mcclellan . Number of fetuses: 1 DATING ----- DateDetailsGest. age LUYC LMP w + 3 d 01/10/2024 Previous [...] EFW (lb,oz) 7 lb 3oz EFW by Hadlock(ONB-KO-RP-FL) Head / Face / Neck Biometry: Canine Service Instructor Trainer 5.3mm CM 8.4mm ANATOMY ----- The following structures appear normal: Head / Neck Cranium. Head size. Head shape.Lateral ventricles. Midline falx. Cavum septi pellucidi. Cerebellum.Cisterna magna. Thalami. Face Lips. Nose. Heart / Thorax 4-chamber view. RVOT view. LVOT view.3-ruhimo-cqacjck view. Diaphragm. Abdomen Stomach. Kidneys. Bladder. Spine [...] and 8lb 9oz babies. Her was also [id number]. This baby feels bigger to her than her previous. She has passed her glucose screening. Discussed inthe absence of diabetes is not indicated based solely onfetal size until the EFW > 5000g. We did discuss consideration for delivery at 39 weeks. Return to primary provider for continued care. If you have questions regarding today's evaluation or if [facility] can [facility], please contact the [facility]. anomalies may be present but not detected I spent a total of 10 minutes on the date of this encounter includingpreparing to see the patient (reviewing medical records/tests), counselingand discussing the plan of care, documenting the visit in the electronic medical record, andcommunicating with other health daycare assistant and/or carecoordination. IMPRESSION ----- 1. Mcclellan at 35w 3d gestational age. 2. Due to advanced gestational age and positive some anatomyremains suboptimally visualized. No anomalies commonly detected byultrasound were identified within the limits of ultrasound. 3. Growth parameters and estimated weight were at the 95th% forgestational age. 4. The amniotic fluid volume appeared normal. Dunia Salas MD Ovi [facility] US ORDERABLE S * [facility] US Comprehensive Single (11/18/2023 12:46 PM CDT) [...] ? Study Date: ??11/18/2023 11:42am Pat. NO: ??[id number] ?Referring ??MD: JERI LIU Site: ? Warehouse Handler: Gini Joiner RDMS : ??1990 ?Age: ?? [...] lb 4 ?oz EFW by ? Hadlock (PCF-UF-QK-FL) Head / Face / Neck Biometry: Canine Service Instructor Trainer ?5.4 ? mm CM ? 9.8 ? mm Nasal bone ? 12.8 ?mm ANATOMY ----- The following structures appear normal: Head / Neck ? Cranium. Head size. Head shape. Lateral ventricles. Choroid plexus. Midline falx. Cavum septi pellucidi. Cerebellum. Cisterna magna. ? Parenchyma. Thalami. Vermis. ? Neck. Face ? Lips. Nose. Orbits. Lens. Heart / Thorax ?4-chamber view. LVOT view. 3- vessel view. 1-cmdkdd-kuqkpjj view. Situs. Aortic arch view. Bicaval view. [...] medical record, and communicating with other health daycare assistant and/or care coordination. Procedure Note Dunia Salas MD - 11/18/2023 Comprehensive ----- Pat. Name: ORLANDO VARGAS Study Date: 11/18/2023 11:42am Pat. NO: [id number] Referring MD: JERI LIU Site: Warehouse Handler: Gini Joiner RDMS : 1990 Age: 33 [...] EFW (lb,oz) 5 lb 4oz EFW by Hadlock(GNW-YC-ZH-FL) Head / Face / Neck Biometry: Canine Service Instructor Trainer 5.4mm CM 9.8mm Nasal bone 12.8mm ANATOMY ----- The following structures appear normal: Head / Neck Cranium. Head size. Head shape.Lateral ventricles. Choroid plexus. Midline falx. Cavum septi pellucidi.Cerebellum. Cisterna magna. Parenchyma. Thalami. Vermis. Neck. Face Lips. Nose. Orbits. Lens. Heart / Thorax 4-chamber view. LVOT view. 3-vesselview. 8-xrzpvq-xzfopdq view. Situs. Aortic arch view. Bicaval view.Superior [...] electronic medical record, andcommunicating with other health daycare assistant and/or carecoordination. IMPRESSION ----- 1. Mcclellan at [...] fluid volume appeared normal. Jeri Liu APRN [facility] ORDERAB LES from Last 3 Months Care Teams Environment Coordinator Relationship Specialty Start Date End Date Jeri Liu APRN CNM [facility] [address] [place] [address] PCP - General 11/17/23 Jannet Marmolejo MD [address] [id number] Assigned OBGYN Provider 12/28/23
--- OUTSIDE RECORDS SUMMARY | 2024-01-14 14:26 | XMS_ITS | Encounter Summary ---
Author Organization [place] Address [address] [place] [address]. [place] [address] Care Team Providers Care Bell Staff Name Role Phone Gerda Liu APRN [facility] Primary Care Provider [phone]- [phone] Encounter Details Date Type Department Care Team [...] on filedocumented in this encounter Care Teams Bell Staff Relationship Specialty Start Date End Date Gerda Liu APRN CNM [facility] [address] [place] [address] PCP - General 11/17/23 documented as of this encounter
--- OUTSIDE RECORDS SUMMARY | 2024-01-14 14:26 | XMS_ITS | Encounter Summary ---
Author Organization [place] Address [address] [facility] [place] [address] Care Team Providers Care Server Name Role Phone AlexaJeri ANNAMARIA [facility] Primary Care Provider [phone]- [phone] Reason for Referral * Diagnostic Imaging Ultrasound (Routine) - Pending Review Specialty Diagnoses / Procedures Referred By Contac t Referred To Contact Radiology. Diagnoses Encounter for follow-up ultrasound of anatomy Procedures [facility] US Comprehensive Single F/U Dunia Salas MD [address] [place] [address] Referral ID Status Reason Start Date Expiration Date V isits Requested Visits Authorized [id number] Pending Review 11/18/2023 11/17/2024 1 1 Reason for Visit * Reason Comments Ultrasound L2- Increased CSF wi thin posterior fossa, MCI Encounter Details Date Type Department Care Team (Late st Contact Info) Description 11/18/2023 12:15 PM CDT Office Visit [facility] [place] [address] [facility] [address] [place] [address] Dunia Salas MD [address] [place] [address] Encounter for follow-up ultrasound of [...] PM CDT Patient reports good movement, reports [place] Demarco contractions, denies leaking of fluid, or bleeding. SBAR given to KASI MAE, see their note in Epic. documented in this encounter Plan of Treatment Not on file documented as of this encounter Procedures Procedure Name Priority Date/Time Associated Diagnosis Comments [facility] COMPREHENSIVE SINGLE Routine 11/18/2023 12:46 PM CDT related condition, antepartum documented in this encounter Results * [facility] Comprehensive Single F/U (12/09/2023 11:03 AM CDT) [...] ? Study Date: ??12/09/2023 10:19am Pat. NO: ??[id number] ?Referring ??MD: JERI LIU Site: ? Ocean Rescue Lieutenant: Gini Joiner RDMS : ??1990 ?Age: ?? [...] ? 01/02/2024 Assigned dating ?based on the [facility], selected on 12/09/2023 ? 35 w + [...] lb 3 ?oz EFW by ? Hadlock (ILK-XW-CH-FL) Head / Face / Neck Biometry: Cutter Grinder Operator ?5.3 ? mm CM ? 8.4 ? mm ANATOMY ----- The following structures appear normal: Head / Neck ? Cranium. Head size. Head shape. Lateral ventricles. Midline falx. Cavum septi pellucidi. Cerebellum. Cisterna magna. Thalami. Face ? Lips. Nose. Heart / Thorax ?4-chamber view. RVOT view. LVOT view. 4-axcviw-ezwcram view. ? Diaphragm. Abdomen ? Stomach. Kidneys. [...] medical record, and communicating with other health healthcare network consultant and/or care coordination. Procedure Note Jannet Marmolejo MD - 12/09/2023 Comp Follow Up ----- Pat. Name: ORLANDO PLUMMER Study Date: 12/09/2023 10:19am Pat. NO: [id number] Referring MD: JERI LIU Site: Ocean Rescue Lieutenant: Gini Joiner RDMS : 1990 Age: 33 [...] EFW (lb,oz) 7 lb 3oz EFW by Hadlock(QGX-HB-RU-FL) Head / Face / Neck Biometry: Cutter Grinder Operator 5.3mm CM 8.4mm ANATOMY ----- The following structures appear normal: Head / Neck Cranium. Head size. Head shape.Lateral ventricles. Midline falx. Cavum septi pellucidi. Cerebellum.Cisterna magna. Thalami. Face Lips. Nose. Heart / Thorax 4-chamber view. RVOT view. LVOT view.3-dtnbbo-gxlxkrt view. Diaphragm. Abdomen Stomach. Kidneys. Bladder. Spine [...] and 8lb 9oz babies. Her was also [id number]. This baby feels bigger to her than [...] electronic medical record, andcommunicating with other health healthcare network consultant and/or carecoordination. IMPRESSION ----- 1. Mcclellan at 35w 3d gestational age. 2. Due to advanced gestational age and positive some anatomyremains suboptimally visualized. No anomalies commonly detected byultrasound were identified within the limits of ultrasound. 3. Growth parameters and estimated weight were at the 95th% forgestational age. 4. The amniotic fluid volume appeared normal. Dunia Salas MD Ovi [facility] US ORDERABLE S * [facility] Comprehensive Single (11/18/2023 12:46 PM CDT) Anatomical [...] ? Study Date: ??11/18/2023 11:42am Pat. NO: ??[id number] ?Referring ??MD: JERI LIU Site: ? Ocean Rescue Lieutenant: Gini Joiner RDMS : ??1990 ?Age: ?? [...] lb 4 ?oz EFW by ? Hadlock (WSF-IO-BH-FL) Head / Face / Neck Biometry: Cutter Grinder Operator ?5.4 ? mm CM ? 9.8 [...] ?4-chamber view. LVOT view. 3- vessel view. 8-khbxos-rurmenq view. Situs. Aortic arch view. Bicaval view. [...] medical record, and communicating with other health healthcare network consultant and/or care coordination. Procedure Note Dunia Salas MD - 11/18/2023 Comprehensive ----- Pat. Name: ORLANDO PLUMMER Study Date: 11/18/2023 11:42am Pat. NO: [id number] Referring MD: JERI LIU Site: Ocean Rescue Lieutenant: Gini Joiner RDMS : 1990 Age: 33 [...] EFW (lb,oz) 5 lb 4oz EFW by Hadlock(RCS-EP-VV-FL) Head / Face / Neck Biometry: Cutter Grinder Operator 5.4mm CM 9.8mm Nasal bone 12.8mm ANATOMY ----- The following structures appear normal: Head / Neck Cranium. Head size. Head shape.Lateral ventricles. Choroid plexus. Midline falx. Cavum septi pellucidi.Cerebellum. Cisterna magna. Parenchyma. Thalami. Vermis. Neck. Face Lips. Nose. Orbits. Lens. Heart / Thorax 4-chamber view. LVOT view. 3-vesselview. 4-fwjgxi-jtfhnzi view. Situs. Aortic arch view. Bicaval view.Superior [...] electronic medical record, andcommunicating with other health healthcare network consultant and/or carecoordination. IMPRESSION ----- 1. Mcclellan at [...] volume appeared normal. Jeri Liu APRN, CNM [facility] US ORDERAB LES documented in this encounter Visit Diagnoses Diagnosis Encounter for follow-up ultrasound of anatomy- Primary related condition, antepartum Encounter for follow-up ultrasound of anatomy documented in this encounter Care Teams Server Relationship Specialty Start Date End Date Jeri Liu APRN CNM [address] [address] PCP - General 11/17/23 documented as of this encounter
--- OUTSIDE RECORDS SUMMARY | 2024-01-14 14:26 | XMS_ITS | Encounter Summary ---
Author Organization [place] Address [address] [place] [address]. [place] [address] Care Team Providers Care Billet Straightener Name Role Phone Gerda Liu APRN [facility] Primary Care Provider [phone]- [phone] Encounter Details Date Type Department Care Team [...] on filedocumented in this encounter Care Teams Billet Straightener Relationship Specialty Start Date End Date Gerda Liu APRN CNM [facility] [address] [place] [address] PCP - General 11/17/23 documented as of this encounter
--- OUTSIDE RECORDS SUMMARY | 2024-01-14 14:26 | XMS_ITS | Referral Summary ---
Author Organization [place] Address [address] [place] [address]. [place] [address] Care Team Providers Care Dental Laboratory Worker Name Role Phone Alexa Jeri YIN [facility] Primary Care Provider [phone]- [phone] Jannet Marmolejo MD Unavailable [phone] Encounters Date Type Department Care Team Description 12/09/2023 Travel 12/09/2023 10:45 AM CDT Office Visit [facility] [address] [facility] [address] [place] [address] Jannet Marmolejo MD related condition, antepartum (Primary Dx); macrosomia during in third trimester, single or unspecified fetus 12/09/2023 10:11 AM CDT - 12/09/2023 11:59 PM CDT Hospital Encounter [facility] Maternal Medicine [facility] [address] [facility] [address] [place] [address] Jannet Marmolejo MD Encounter for follow-up ultrasound of anatomy Discharge Disposition: Home or Self Care 11/18/2023 Travel 11/18/2023 12:15 PM CDT Office Visit [facility] [address] [facility] [address] [place] [address] Dunia Salas MD Encounter for follow-up ultrasound of anatomy (Primary Dx); related condition, antepartum 11/18/2023 11:33 AM CDT - 11/18/2023 11:59 PM CDT Hospital Encounter [facility] [address] [facility] [address] [place] [address] Dunia Salas MD Discharge Disposition: Home or Self Care 11/17/2023 Medical Correspondence [facility] Info Mgmt Srvcs [address] [place] [address] Scan, Non-Provider 11/17/2023 PRE VISIT [facility] [place] [address] [facility] [address] [place] [address] Cecy Bedoya RN Ultrasound (L2- Increased CSF within posterior fossa, MCI) 11/17/2023 Transcribe Orders [facility] [place] [address] [facility] [address] [place] [address] Jeri Liu APRN CNM related condition, antepartum [...] Procedure Name Priority Date/Time Associated Diagnosis Comments [facility] US COMPREHENSIVE SINGLE F/U Routine 12/09/2023 11:03 AM CDT Encounter for follow-up ultrasound of anatomy [facility] US COMPREHENSIVE SINGLE Routine 11/18/2023 12:46 PM CDT related condition, antepartum from Last 3 Months Results * [facility] US Comprehensive Single F/U (12/09/2023 11:03 [...] ? Study Date: ??12/09/2023 10:19am Pat. NO: ??[id number] ?Referring ??: JERI LIU Site: ? Chief Of Harbor Patrol: Gini Joiner RDMS : ??1990 ?Age: ?? [...] lb 3 ?oz EFW by ? Hadlock (EJD-WJ-BD-FL) Head / Face / Neck Biometry: Second Baker ?5.3 ? mm CM ? 8.4 ? mm ANATOMY ----- The following structures appear normal: Head / Neck ? Cranium. Head size. Head shape. Lateral ventricles. Midline falx. Cavum septi pellucidi. Cerebellum. Cisterna magna. Thalami. Face ? Lips. Nose. Heart / Thorax ?4-chamber view. RVOT view. LVOT view. 4-ezvxed-ncgasuq view. ? Diaphragm. Abdomen ? Stomach. Kidneys. [...] medical record, and communicating with other health behavioral health care coordinator and/or care coordination. Procedure Note Jannet Marmolejo MD - 12/09/2023 Comp Follow Up ----- Pat. Name: ORLANDO VARGAS Study Date: 12/09/2023 10:19am Pat. NO: [id number] Referring MD: JERI LIU Site: Chief Of Harbor Patrol: Gini Joiner RDMS : 1990 Age: 33 [...] EFW (lb,oz) 7 lb 3oz EFW by Hadlock(IKV-MC-OH-FL) Head / Face / Neck Biometry: Second Baker 5.3mm CM 8.4mm ANATOMY ----- The following structures appear normal: Head / Neck Cranium. Head size. Head shape.Lateral ventricles. Midline falx. Cavum septi pellucidi. Cerebellum.Cisterna magna. Thalami. Face Lips. Nose. Heart / Thorax 4-chamber view. RVOT view. LVOT view.4-oqqpsv-ouxozrd view. Diaphragm. Abdomen Stomach. Kidneys. Bladder. Spine [...] and 8lb 9oz babies. Her was also [id number]. This baby feels bigger to her than [...] electronic medical record, andcommunicating with other health behavioral health care coordinator and/or carecoordination. IMPRESSION ----- 1. Mcclellan at 35w 3d gestational age. 2. Due to advanced gestational age and positive some anatomyremains suboptimally visualized. No anomalies commonly detected byultrasound were identified within the limits of ultrasound. 3. Growth parameters and estimated weight were at the 95th% forgestational age. 4. The amniotic fluid volume appeared normal. Dunia Salas MD [facility] US ORDERABLE S * [facility] US Comprehensive Single (11/18/2023 12:46 PM [...] ? Study Date: ??11/18/2023 11:42am Pat. NO: ??[id number] ?Referring ??MD: JERI LIU Site: ? Chief Of Harbor Patrol: Gini Joiner RDMS : ??1990 ?Age: ?? [...] lb 4 ?oz EFW by ? Hadlock (PYS-LF-NP-FL) Head / Face / Neck Biometry: Second Baker ?5.4 ? mm CM ? 9.8 ? mm Nasal bone ? 12.8 ?mm ANATOMY ----- The following structures appear normal: Head / Neck ? Cranium. Head size. Head shape. Lateral ventricles. Choroid plexus. Midline falx. Cavum septi pellucidi. Cerebellum. Cisterna magna. ? Parenchyma. Thalami. Vermis. ? Neck. Face ? Lips. Nose. Orbits. Lens. Heart / Thorax ?4-chamber view. LVOT view. 3- vessel view. 8-xtjceb-mgsnsnv view. Situs. Aortic arch view. Bicaval view. [...] medical record, and communicating with other health behavioral health care coordinator and/or care coordination. Procedure Note Dunia Salas MD - 11/18/2023 Comprehensive ----- Pat. Name: ORLANDO VARGAS Study Date: 11/18/2023 11:42am Pat. NO: [id number] Referring MD: JERI LIU Site: Chief Of Harbor Patrol: Gini Joiner RDMS : 1990 Age: 33 [...] EFW (lb,oz) 5 lb 4oz EFW by Gregg(IUB-UT-SC-FL) Head / Face / Neck Biometry: Second Baker 5.4mm CM 9.8mm Nasal bone 12.8mm ANATOMY ----- The following structures appear normal: Head / Neck Cranium. Head size. Head shape.Lateral ventricles. Choroid plexus. Midline falx. Cavum septi pellucidi.Cerebellum. Cisterna magna. Parenchyma. Thalami. Vermis. Neck. Face Lips. Nose. Orbits. Lens. Heart / Thorax 4-chamber view. LVOT view. 3-vesselview. 8-jvnzgu-trvemdh view. Situs. Aortic arch view. Bicaval view.Superior [...] electronic medical record, andcommunicating with other health behavioral health care coordinator and/or carecoordination. IMPRESSION ----- 1. [...] fluid volume appeared normal. Jeri RIOS [facility] ORDERAB LES from Last 3 Months Care Teams Dental Laboratory Worker Relationship Specialty Start Date End Date Jeir Liu APRN CNM [facility] [address] [place] [address] PCP - General 11/17/23 Jannet Marmolejo MD [address] [address] Assigned OBGYN Provider 12/28/23
--- OUTSIDE RECORDS SUMMARY | 2024-01-14 14:26 | XMS_ITS | Encounter Summary ---
Author Organization [facility] Address [address] [place] [address]. [place] [address] Care Team Providers Care Cooling Tower Technician Name Role Phone AlexaJeri [facility] Primary Care Provider +1- [phone] Reason for Referral * Diagnostic Imaging Ultrasound (Routine) - Pending Review Specialty Diagnoses / Procedures Referred By Contac t Referred To Contact Radiology. Diagnoses Encounter for follow-up ultrasound of anatomy Procedures [facility] Comprehensive Single Souleymane/Dunia Ruano MD [address] [place] [address] Referral ID Status Reason Start Date Expiration Date V isits Requested Visits Authorized [id number] Pending Review 11/18/2023 11/17/2024 1 1 Reason for Visit * Diagnostic Imaging Ultrasound (Routine) - Pending Review Specialty Diagnoses / Procedures Referred By Contac t Referred To Contact Radiology. Diagnoses Encounter for follow-up ultrasound of anatomy Procedures [facility] Jeny Comer/Dunia Ruano MD [address] [address] Referral ID Status Reason Start Date Expiration Date V isits Requested Visits Authorized [id number] Pending Review 11/18/2023 11/17/2024 1 1 Encounter Details Date Type Department Care Team (Latest Contact Info) Description 12/09/2023 10:11 AM CDT - 12/09/2023 11:59 PM CDT Hospital Encounter [facility] [address] [facility] [address] [place] [address] Jannet Marmolejo MD [address] [facility] [address] [place] [address] Encounter for follow-up ultrasound of [...] Procedure Name Priority Date/Time Associated Diagnosis Comments [facility] COMPREHENSIVE SINGLE F/U Routine 12/09/2023 11:03 AM CDT Encounter for follow-up ultrasound of anatomy documented in this encounter Results * [facility] Comprehensive Single F/U (12/09/2023 11:03 AM [...] ? Study Date: ??12/09/2023 10:19am Pat. NO: ??[id number] ?Referring ??MD: JERI LIU Site: ? Budget Assistant: Gini Joiner RDMS : ??1990 ?Age: ?? [...] lb 3 ?oz EFW by ? Hadlock ([id number]) Head / Face / Neck Biometry: Taxicab Driver ?5.3 ? mm CM ? 8.4 ? mm ANATOMY ----- The following structures appear normal: Head / Neck ? Cranium. Head size. Head shape. Lateral ventricles. Midline falx. Cavum septi pellucidi. Cerebellum. Cisterna magna. Thalami. Face ? Lips. Nose. Heart / Thorax ?4-chamber view. RVOT view. LVOT view. 2-moynht-xvaqrkr view. ? Diaphragm. Abdomen ? Stomach. Kidneys. [...] and communicating with other health career services assistant and/or care coordination. Procedure Note Jannet Marmolejo MD - 12/09/2023 Comp Follow Up ----- Pat. Name: ORLANDO VARGAS Study Date: 12/09/2023 10:19am Pat. NO: [id number] Referring MD: JERI LIU Site: Budget Assistant: Gini Joiner RDMS : 1990 Age: 33 [...] EFW (lb,oz) 7 lb 3oz EFW by Hadlock([id number]) Head / Face / Neck Biometry: Taxicab Driver 5.3mm CM 8.4mm ANATOMY ----- The following structures appear normal: Head / Neck Cranium. Head size. Head shape.Lateral ventricles. Midline falx. Cavum septi pellucidi. Cerebellum.Cisterna magna. Thalami. Face Lips. Nose. Heart / Thorax 4-chamber view. RVOT view. LVOT view.8-jizmrg-jaeeuvs view. Diaphragm. Abdomen Stomach. Kidneys. Bladder. Spine [...] and 8lb 9oz babies. Her was also [id number]. This baby feels bigger to her than her previous. She has passed her glucose screening. Discussed inthe absence of diabetes is not indicated based solely onfetal size until the EFW > 5000g. We did discuss consideration for delivery at 39 weeks. Return to primary provider for continued care. If you have questions regarding today's evaluation or if we can be [facility] service, please contact the [facility]. anomalies may be present but not detected I spent a total of 10 minutes on the date of this encounter includingpreparing to see the patient (reviewing medical records/tests), counselingand discussing the plan of care, documenting the visit in the electronic medical record, andcommunicating with other health career services assistant and/or carecoordination. IMPRESSION ----- 1. Mcclellan at 35w 3d gestational age. 2. Due to advanced gestational age and positive some anatomyremains suboptimally visualized. No anomalies commonly detected byultrasound were identified within the limits of ultrasound. 3. Growth parameters and estimated weight were at the 95th% forgestational age. 4. The amniotic fluid volume appeared normal. Dunia Salas MD IMG [facility] ORDERABLE S documented in this encounter Visit Diagnoses Diagnosis Encounter for follow-up ultrasound of anatomy documented in this encounter Care Teams Cooling Tower Technician Relationship Specialty Start Date End Date Jeri Liu APRN CNM [address] [address] PCP - General 11/17/23 documented as of this encounter
--- OUTSIDE RECORDS SUMMARY | 2024-01-14 14:27 | XMS_ITS | Clinical Summary ---
Author Organization [facility] Address [place], [place] [address] Care Team Providers Care Cutting Machine Tender Helper Name Role Phone Unavailable Primary Care Provider [...] Comments Blood Pressure 117/75 03/24/2019 8:25 AM STOCK PREPARATION OPERATOR Pulse 80 03/24/2019 8:25 AM STOCK PREPARATION OPERATOR Temperature 36.7 ??C (98 ??F) 03/24/2019 8:25 AM STOCK PREPARATION OPERATOR Respiratory Rate - - Oxygen Saturation 98% 03/24/2019 8:25 AM STOCK PREPARATION OPERATOR Inhaled Oxygen Concentration - - Weight 64.5 kg (142 lb 3.2 oz) 03/24/2019 8:25 A M STOCK PREPARATION OPERATOR Height 165.1 cm (5' 5) 03/24/2019 8:25 AM STOCK PREPARATION OPERATOR Body Mass Index 23.66 03/24/2019 8:25 AM STOCK PREPARATION OPERATOR Plan of Treatment Health Maintenance Due Date [...] Procedure Name Priority Date/Time Associated Diagnosis Comments BIOMETRIC TECHNICIAN THIN PREP PAP SCREEN IMAGED Routine 08/02/2019 4:15 PM CDT from Last 3 Months or Most Recently Relevant to Health Maintenance Results * BIOMETRIC TECHNICIAN THIN PREP PAP SCREEN IMAGED (08/02/2019 4:15 PM CDT) Case Report Gynecologic Cytology Report ? Case: [id number] ? Authorizing Provider: ??Laura Montez PA-C ?Collected: ? 08/02/2019 1615 ? Ordering Location: ? [facility] ?Received: ?08/04/2019 0849 ? First Screen: ?Romina Baxter ? Specimen: ?BIOMETRIC TECHNICIAN ThinPrep Vial Screening, Cervical/Vaginal ? 08/04/2019 5:55 PM CDT [facility] INTERPRETATION/ RESULT NEGATIVE FOR INTRAEPITHELIAL LESION OR MALIGNANCY (NIL) (none) 08/04/2019 5:55 PM CDT [facility] IMEN ADEQUACY Satisfactory for evaluation No endocervical component seen in a patient Excessive cytolysis/autolys is 08/04/2019 5:55 PM CDT [facility] HPV REQUEST HPV if ASCUS 08/04/2019 5:55 PM CDT [facility] Date of LMP 06/06/2019 08/04/2019 5:55 PM CDT [facility] Last Pap Result 0 5:55 PM CDT [facility] Comment:neg Menstrual Status 08/04/2019 5:55 PM CDT [facility] Additional Information 08/04/2019 5:55 PM CDT [facility] Comment: Interpreted at [facility] - [address], [place] [address] Automated Review Successful 08/04/2019 5:55 PM CDT [facility] Comment:Specimen processed s uccessfully by automated delivery associate device, ThinPrep Imaging System, [employer] Note The pap test is a [...] and malignant lesions. 08/04/2019 5:55 PM CDT [facility] Other (Cervical/Vagina l) 08/02/2019 4:15 PM CDT 08/04/2019 8:49 AM CDT July Melida [facility] PATHOLOGY/CYTOLOGY [facility] [address] [place] [address], [place] from Last 3 Months or Most Recently Relevant to Health Maintenance
--- OUTSIDE RECORDS SUMMARY | 2024-01-14 14:27 | XMS_ITS | Encounter Summary ---
Author Organization [facility] Address [address] [place] [address]. [place] [address] Care Team Providers Care Motor Vehicle Parts Interpreter Name Role Phone Unavailable Primary Care Provider Unavailabl e Encounter Details Date Type Department Care Team (Late st Contact Info) Description 05/28/2008 4:15 PM [facility] in [facility] [address] [place] [id number] Bunny Hernández MD [address] [place], [place] [address] Social History Tobacco Use Types Packs/Day Years [...]
--- OUTSIDE RECORDS SUMMARY | 2024-01-14 14:27 | XMS_ITS | Encounter Summary ---
Author Organization [facility] Address [address] [place] [address]. [place] [address] Care Team Providers Care Director Of Infection Prevention Name Role Phone Jeri Liu APRN, CNM Primary Care Provider +1- [phone] Reason for Referral * Diagnostic Imaging Ultrasound (Routine) - Pending Review Specialty Diagnoses / Procedures Referred By Contac t Referred To Contact Radiology. Diagnoses related condition, antepartum Procedures [facility] Comprehensive Single Jeri Liu APRN CNM [facility] [address] [place] [address] Referral ID Status Reason Start Date Expiration Date V isits Requested Visits Authorized [id number] Pending Review 11/17/2023 11/16/2024 1 1 * Consultation (Routine: Next available opening) - Pending Review Specialty Diagnoses / Procedures Referred By Contac t Referred To Contact Diagnoses related condition, antepartum Jeri Liu APRN CNM [facility] [address] [place] [address] [facility] [address] [place] [address] Referral ID Status Reason Start Date Expiration Date V isits Requested Visits Authorized [id number] Pending Review 11/17/2023 11/16/2024 1 1 Question Answer Preferred Location: [facility] [place] LUCY 01/10/2024 Ultrasound Comprehensive US (>than 18 weeks GA) US PROC NONE MFM Issue OTHER (enter details in Comments) - increased CSF w/in posterior fossa MFM MD Consultation (unrelated to Ultrasound findings): Yes Inflammatory Bowel Disease Clinic: Joint MFM and GI Consultation: No Chronic Kidney Disease: Joint MFM and Nephrology Consultation No Cardio-Obstetrics: Joint MFM and Cardiology Consultation No fax [facility] - Jeri Liu - Additional Information: no [...] (Latest Contact Info) Description 11/17/2023 Transcribe Orders [facility] [place] [address] [place] [address] Jeri Liu APRN CNM [address] [address] related condition, antepartum (Primary Dx) Social History [...] documented as of this encounter Results * [facility] US Comprehensive Single (11/18/2023 12:46 PM [...] ? Study Date: ??11/18/2023 11:42am Pat. NO: ??[id number] ?Referring ??MD: JERI LIU Site: ? Junior Assistant Manager: Gini Joiner RDMS : ??1990 ?Age: ?? 33 ----- INDICATION ----- Enlarged cisterna magna and marginal cord insertion on outside ultrasound. METHOD ----- Transabdominal ultrasound examination. View: Suboptimal view: limited by late gestational age. Suboptimal view: limited by position ----- Mcclellan . Number of fetuses: 1 DATING ----- ? Date ?Details ?Gest. age ?ULCY LMP ?04/05/2023 ? 32 w + 3 [...] lb 4 ?oz EFW by ? Hadlock ([id number]) Head / Face / Neck Biometry: Shake Out Worker ?5.4 ? mm CM ? 9.8 ? mm Nasal bone ? 12.8 ?mm ANATOMY ----- The following structures appear normal: Head / Neck ? Cranium. Head size. Head shape. Lateral ventricles. Choroid plexus. Midline falx. Cavum septi pellucidi. Cerebellum. Cisterna magna. ? Parenchyma. Thalami. Vermis. ? Neck. Face ? Lips. Nose. Orbits. Lens. Heart / Thorax ?4-chamber view. LVOT view. 3- vessel view. 6-xbugfp-msgjmyf view. Situs. Aortic arch view. Bicaval view. [...] medical record, and communicating with other health lead care manager and/or care coordination. Procedure Note Dunia Salas MD - 11/18/2023 Comprehensive ----- Pat. Name: ORLANDO VARGAS Study Date: 11/18/2023 11:42am Pat. NO: [id number] Referring MD: JERI LIU Site: Junior Assistant Manager: Gini Joiner RDMS : 1990 Age: [...] EFW (lb,oz) 5 lb 4oz EFW by Hadlock([id number]) Head / Face / Neck Biometry: Shake Out Worker 5.4mm CM 9.8mm Nasal bone 12.8mm ANATOMY ----- The following structures appear normal: Head / Neck Cranium. Head size. Head shape.Lateral ventricles. Choroid plexus. Midline falx. Cavum septi pellucidi.Cerebellum. Cisterna magna. Parenchyma. Thalami. Vermis. Neck. Face Lips. Nose. Orbits. Lens. Heart / Thorax 4-chamber view. LVOT view. 3-vesselview. 5-vsignp-azjyrfn view. Situs. Aortic arch view. Bicaval view.Superior [...] electronic medical record, andcommunicating with other health lead care manager and/or carecoordination. IMPRESSION ----- 1. Mcclellan at [...] volume appeared normal. Jeri Liu APRN, CNM [facility] US ORDERAB LES documented in this encounter Visit Diagnoses Diagnosis related condition, antepartum- Primary documented in this encounter Care Teams Director Of Infection Prevention Relationship Specialty Start Date End Date Jeri Liu APRN CNM [address] [address] PCP - General 11/17/23 documented as of this encounter
== END 2024-01-14 14:21 | disposition home or self-care (01) ==
PROVIDERS: Visit Provider Advanced Practice Midwife
DX: Z39.1 Encounter for care and examination of lactating mother (principal)
CPT/HCPCS: 82565; 84450; 84460; 84520

== ENCOUNTER 2024-02-12 11:46 | Outpatient (CLI) | payer BC, SELFPAY ==
--- OUTSIDE RECORDS SUMMARY | 2024-02-12 11:52 | XMS_ITS | Encounter Summary ---
Author Organization [facility] Address [address] [place] [address] Care Team Providers Care Rn Or Lpn Name Role Phone Alexa Jeri YIN [facility] Primary Care Provider +1- [phone] Reason for Referral * Diagnostic Imaging Ultrasound (Routine) - Pending Review Specialty Diagnoses / Procedures Referred By Contac t Referred To Contact Radiology. Diagnoses Encounter for follow-up ultrasound of anatomy Procedures [facility] US Comprehensive Single F/U Dunia Salas MD [address] [facility] [address] [address] [address] Phone: tel: fax: Referral ID Status Reason Start Date Expiration Date V isits Requested Visits Authorized [id number] Pending Review 11/18/2023 11/17/2024 1 1 Reason for Visit * Diagnostic Imaging Ultrasound (Routine) - Pending Review Specialty Diagnoses / Procedures Referred By Contac t Referred To Contact Radiology. Diagnoses Encounter for follow-up ultrasound of anatomy Procedures [facility] US Comprehensive Single F/U Dunia Salas MD [address] [facility] [address] [place] [address] Phone: tel: fax: Referral ID Status Reason Start Date Expiration Date V isits Requested Visits Authorized [id number] Pending Review 11/18/2023 11/17/2024 1 1 Encounter Details Date Type Department Care Team (Latest Contact Info) Description 12/09/2023 10:11 AM CDT - 12/09/2023 11:59 PM CDT Hospital Encounter [facility] [place] [address] [facility] [address] [place] [address] Jannet Marmolejo MD [address] [place] [address] [address] [place] [address] Encounter for follow-up ultrasound of anatomy Discharge Disposition: Home or Self Care Social History Tobacco Use Types Packs/Day Years Used Date Smoking Tobacco: Never Assessed Estimated Date of Delivery Comme nts Yes 01/10/2024 Based on last me nstrual period of 04/05/2023 Sex and Gender Information Value Date Recorded Sex Assigned at Not on file Legal Sex Female 4:55 AM ALTERATIONS WORKROOM CLERK Gender Identity Not on file Sexual Orientation [...] anatomy documented in this encounter Results * [facility] [...] ? Study Date: ??12/09/2023 10:19am Pat. NO: ??[id number] ?Referring ??MD: JERI LIU Site: ? Denitrator Operator: Gini Joiner RDMS : ??1990 ?Age: ?? [...] ? 01/02/2024 Assigned dating ?based on the [facility], selected on 12/09/2023 ? 36 [...] lb 3 ?oz EFW by ? Hadlock ([id number]-FL) Head / Face / Neck Biometry: Methods Time Analyst ?5.3 ? mm CM ? 8.4 ? mm ANATOMY ----- The following structures appear normal: Head / Neck ? Cranium. Head size. Head shape. Lateral ventricles. Midline falx. Cavum septi pellucidi. Cerebellum. Cisterna magna. Thalami. Face ? Lips. Nose. Heart / Thorax ?4-chamber view. RVOT view. LVOT view. 6-mlpaqx-ceikueh view. ? Diaphragm. Abdomen ? Stomach. Kidneys. [...] medical record, and communicating with other health care program director and/or care coordination. Procedure Note Jannet Marmolejo MD - 12/09/2023 Comp Follow Up ----- Pat. Name: ORLANDO VARGAS Study Date: 12/09/2023 10:19am Pat. NO: [id number] Referring MD: JERI LIU Site: Denitrator Operator: Gini Joiner RDMS : 1990 Age: 33 [...] EFW (lb,oz) 7 lb 3oz EFW by Gregg([id number]-FL) Head / Face / Neck Biometry: Methods Time Analyst 5.3mm CM 8.4mm ANATOMY ----- The following structures appear normal: Head / Neck Cranium. Head size. Head shape.Lateral ventricles. Midline falx. Cavum septi pellucidi. Cerebellum.Cisterna magna. Thalami. Face Lips. Nose. Heart / Thorax 4-chamber view. RVOT view. LVOT view.9-gdtqwd-xpwucdp view. Diaphragm. Abdomen Stomach. Kidneys. Bladder. Spine [...] and 8lb 9oz babies. Her was also [id number]. This baby feels bigger to her than [...] electronic medical record, andcommunicating with other health care program director and/or carecoordination. IMPRESSION ----- 1. Mcclellan at 35w 3d gestational age. 2. Due to advanced gestational age and positive some anatomyremains suboptimally visualized. No anomalies commonly detected byultrasound were identified within the limits of ultrasound. 3. Growth parameters and estimated weight were at the 95th% forgestational age. 4. The amniotic fluid volume appeared normal. us Dnuia RIOS [facility] US ORDERABLES Edited Res ult - Final documented in this encounter Visit Diagnoses Diagnosis Encounter for follow-up ultrasound of anatomy documented in this encounter Care Teams Rn Or Lpn Relationship Specialty Start Date End Date Jeri Liu APRN CNM [facility] [address] [place] [address] PCP - General 11/17/23 documented as of this encounter
--- OUTSIDE RECORDS SUMMARY | 2024-02-12 11:52 | XMS_ITS | Encounter Summary ---
Author Organization [facility] Address [address] [facility] [place] [address] Care Team Providers Care Armature Bander Name Role Phone AlexaGerda ANNAMARIA [facility] Primary Care Provider [phone]- [phone] Reason for Referral * Diagnostic Imaging Ultrasound (Routine) - Pending Review Specialty Diagnoses / Procedures Referred By Contac t Referred To Contact Radiology. Diagnoses Encounter for follow-up ultrasound of anatomy Procedures [facility] US Comprehensive Single F/U Dunia Salas MD [address] [place] [address] Phone: tel: fax: Referral ID Status Reason Start Date Expiration Date V isits Requested Visits Authorized [id number] Pending Review 11/18/2023 11/17/2024 1 1 Reason for Visit * Reason Comments Ultrasound L2- Increased CSF wi thin posterior fossa, MCI Encounter Details Date Type Department Care Team (Late st Contact Info) Description 11/18/2023 12:15 PM CDT Office Visit [facility] [place] [address] [place] [address] Dunia Salas MD [address] [place] [address] Encounter for follow-up ultrasound of anatomy (Primary Dx); related condition, antepartum Social History Tobacco Use Types Packs/Day Years Used Date Smoking Tobacco: Never Assessed Estimated Date of Delivery Comme nts Yes 01/10/2024 Based on last me nstrual period of 04/05/2023 Sex and Gender Information Value Date Recorded Sex Assigned at Not on file Legal Sex Female 4:55 AM NATIONAL ACCOUNT MANAGER Gender Identity Not on file Sexual Orientation Not on file documented as of this encounter Progress Notes * Dunia Salas MD - 11/18/2023 12:15 PM CDT Please see Imaging tab under Chart Review for details of today's visit. Dunia Salas documented in this encounter Nursing Notes * Dayanara Novak RN - 11/18/2023 12:15 PM CDT Patient reports good movement, reports Bryan Demarco contractions, denies leaking of fluid, or bleeding. SBAR given to KASI MAE, see their note in Epic. documented in this encounter Plan of Treatment Not on file documented as of this encounter Procedures Procedure Name Priority Date/Time Associated Diagnosis Comments [facility] COMPREHENSIVE SINGLE Routine 11/18/2023 12:46 PM CDT related condition, antepartum documented in this encounter Results * [facility] Comprehensive Single F/U (12/09/2023 11:03 [...] ? Study Date: ??12/09/2023 10:19am Pat. NO: ??[id number] ?Referring ??MD: GERDA LIU Site: ? Logging Tractor Operator: Gini Joiner RDMS : ??1990 ?Age: [...] lb 3 ?oz EFW by ? Hadlock ([id number]) Head / Face / Neck Biometry: Make Up Operator ?5.3 ? mm CM ? 8.4 ? mm ANATOMY ----- The following structures appear normal: Head / Neck ? Cranium. Head size. Head shape. Lateral ventricles. Midline falx. Cavum septi pellucidi. Cerebellum. Cisterna magna. Thalami. Face ? Lips. Nose. Heart / Thorax ?4-chamber view. RVOT view. LVOT view. 2-azrcdz-nxckpqe view. ? Diaphragm. Abdomen ? Stomach. Kidneys. [...] medical record, and communicating with other health restorative care technician and/or care coordination. Procedure Note Jannet Marmolejo MD - 12/09/2023 Comp Follow Up ----- Pat. Name: ORLANDO PLUMMER Study Date: 12/09/2023 10:19am Pat. NO: [id number] Referring MD: GERDA LIU Site: Logging Tractor Operator: Gini Joiner RDMS : 1990 Age: [...] EFW (lb,oz) 7 lb 3oz EFW by Hadlock([id number]) Head / Face / Neck Biometry: Make Up Operator 5.3mm CM 8.4mm ANATOMY ----- The following structures appear normal: Head / Neck Cranium. Head size. Head shape.Lateral ventricles. Midline falx. Cavum septi pellucidi. Cerebellum.Cisterna magna. Thalami. Face Lips. Nose. Heart / Thorax 4-chamber view. RVOT view. LVOT view.5-pqdeov-tblkvlr view. Diaphragm. Abdomen Stomach. Kidneys. Bladder. Spine [...] and 8lb 9oz babies. Her was also [id number]. This baby feels bigger to her than her previous. She has passed her glucose screening. Discussed inthe absence of diabetes is not indicated based solely onfetal size until the EFW > 5000g. We did discuss consideration for delivery at 39 weeks. Return to primary provider for continued care. If you have questions regarding today's evaluation or if we can be [facility], please contact the [facility]. anomalies may be present but not detected I spent a total of 10 minutes on the date of this encounter includingpreparing to see the patient (reviewing medical records/tests), counselingand discussing the plan of care, documenting the visit in the electronic medical record, andcommunicating with other health restorative care technician and/or carecoordination. IMPRESSION ----- 1. Mcclellan at 35w 3d gestational age. 2. Due to advanced gestational age and positive some anatomyremains suboptimally visualized. No anomalies commonly detected byultrasound were identified within the limits of ultrasound. 3. Growth parameters and estimated weight were at the 95th% forgestational age. 4. The amniotic fluid volume appeared normal. us Dunia RIOS [facility] US ORDERABLES Edited Res ult - Final * [facility] US Comprehensive Single (11/18/2023 12:46 [...] ? Study Date: ??11/18/2023 11:42am Pat. NO: ??[id number] ?Referring ??MD: GERDA LIU Site: ? Logging Tractor Operator: Gini Joiner RDMS : ??1990 ?Age: [...] ?5 lb 4 ?oz EFW by ? Gregg ([id number]) Head / Face / Neck Biometry: Make Up Operator ?5.4 ? mm CM ? 9.8 [...] ?4-chamber view. LVOT view. 3- vessel view. 0-fijbpj-dejmuvn view. Situs. Aortic arch view. Bicaval view. [...] medical record, and communicating with other health restorative care technician and/or care coordination. Procedure Note Dunia Salas MD - 11/18/2023 Comprehensive ----- Pat. Name: ORLANDO PLUMMER Study Date: 11/18/2023 11:42am Pat. NO: [id number] Referring MD: GERDA LIU Site: Logging Tractor Operator: Gini Joiner RDMS : 1990 Age: [...] EFW (lb,oz) 5 lb 4oz EFW by Hadlock([id number]) Head / Face / Neck Biometry: Make Up Operator 5.4mm CM 9.8mm Nasal bone 12.8mm ANATOMY ----- The following structures appear normal: Head / Neck Cranium. Head size. Head shape.Lateral ventricles. Choroid plexus. Midline falx. Cavum septi pellucidi.Cerebellum. Cisterna magna. Parenchyma. Thalami. Vermis. Neck. Face Lips. Nose. Orbits. Lens. Heart / Thorax 4-chamber view. LVOT view. 3-vesselview. 4-xqefkc-ccccsoj view. Situs. Aortic arch view. Bicaval view.Superior [...] electronic medical record, andcommunicating with other health restorative care technician and/or carecoordination. IMPRESSION ----- 1. Mcclellan at [...] 5. The amniotic fluid volume appeared normal. us Gerda Liu APRN, CNM [facility] US ORDERABLES Edit ed Result - Final documented in this encounter Visit Diagnoses Diagnosis Encounter for follow-up ultrasound of anatomy- Primary related condition, antepartum Encounter for follow-up ultrasound of anatomy documented in this encounter Care Teams Armature Bander Relationship Specialty Start Date End Date Gerda Liu APRN CNM [address] [address] PCP - General 11/17/23 documented as of this encounter
--- OUTSIDE RECORDS SUMMARY | 2024-02-12 11:52 | XMS_ITS | Clinical Summary ---
Author Organization [facility] Address [address] [place] [address]. [place] [address] Care Team Providers Care Eap Clinician Name Role Phone Gerda Liu APRN [facility] Primary Care Provider [phone] Jannet Marmolejo MD Unavailable [phone] Allergies Active Allergy Reactions Criticality Noted Date Comments Sulfa Antibiotics 05/30/2008 Noted in 05/28/08 ER Encounters Date Type Department Care Team Description 12/09/2023 10:45 AM CDT Office Visit [facility] Medicine [facility] [address] [place] [address] Jannet Marmolejo MD related condition, antepartum (Primary Dx); macrosomia during in third trimester, single or unspecified fetus 12/09/2023 10:11 AM CDT - 12/09/2023 11:59 PM CDT Hospital Encounter [facility] Medicine [facility] [address] [place] [address] Jannet Marmolejo MD Encounter for follow-up ultrasound of anatomy Discharge Disposition: Home or Self Care 12/09/2023 Travel 11/18/2023 12:15 PM CDT Office Visit [facility] Medicine [facility] [address] [place] [address] Dunia Salas MD Encounter for follow-up ultrasound of anatomy (Primary Dx); related condition, antepartum 11/18/2023 11:33 AM CDT - 11/18/2023 11:59 PM CDT Hospital Encounter [facility] Medicine [facility] [address] [place] [address] Dunia Salas MD Discharge Disposition: Home or Self Care 11/18/2023 Travel 11/17/2023 Medical Correspondence [facility] Info Mgmt [facility] [address] [place] [address] Scan, Non-Provider 11/17/2023 PRE VISIT [facility] Medicine [place] [address] [place] [address] Cecy Bedoya RN Ultrasound (L2- Increased CSF within posterior fossa, MCI) 11/17/2023 Transcribe Orders [facility] Medicine [place] [address] [place] [address] Gerda Liu APRN CNM related condition, antepartum (Primary Dx) from Last 3 Months Social History Tobacco Use Types Packs/Day Years Used Date Smoking Tobacco: Never Assessed Estimated Date of Delivery Comme nts Yes 01/10/2024 Based on last me nstrual period of 04/05/2023 Sex and Gender Information Value Date Recorded Sex Assigned at Not on file Legal 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 Study Date: ??12/09/2023 10:19am Pat. NO: ??[id number] ?Referring ??MD: GERDA LIU Site: ? Squirt Machine Operator: Gini Joinre RDMS : ??1990 ?Age: ?? 33 ----- [...] ? 01/02/2024 Assigned dating ?based on the [facility], selected on 12/09/2023 ? 35 [...] lb 3 ?oz EFW by ? Hadlock ([id number]-FL) Head / Face / Neck Biometry: Engineering Group Leader ?5.3 ? mm CM ? 8.4 ? mm ANATOMY ----- The following structures appear normal: Head / Neck ? Cranium. Head size. Head shape. Lateral ventricles. Midline falx. Cavum septi pellucidi. Cerebellum. Cisterna magna. Thalami. Face ? Lips. Nose. Heart / Thorax ?4-chamber view. RVOT view. LVOT view. 6-aitajz-xknttci view. ? Diaphragm. Abdomen ? Stomach. Kidneys. [...] record, and communicating with other health child caregiver private home and/or care coordination. Procedure Note Jannet Marmolejo MD - 12/09/2023 Comp Follow Up ----- Pat. Name: ORLANDO VARGAS Study Date: 12/09/2023 10:19am Pat. NO: [id number] Referring MD: GERDA LIU Site: Squirt Machine Operator: Gini Joiner RDMS : 1990 Age: [...] EFW (lb,oz) 7 lb 3oz EFW by Hadlock([id number]-FL) Head / Face / Neck Biometry: Engineering Group Leader 5.3mm CM 8.4mm ANATOMY ----- The following structures appear normal: Head / Neck Cranium. Head size. Head shape.Lateral ventricles. Midline falx. Cavum septi pellucidi. Cerebellum.Cisterna magna. Thalami. Face Lips. Nose. Heart / Thorax 4-chamber view. RVOT view. LVOT view.0-gehbsi-uhvszwj view. Diaphragm. Abdomen Stomach. Kidneys. Bladder. Spine [...] and 8lb 9oz babies. Her was also [id number]. This baby feels bigger to her than [...] medical record, andcommunicating with other health child caregiver private home and/or carecoordination. IMPRESSION ----- 1. Mcclellan at 35w 3d gestational age. 2. Due to advanced gestational age and positive some anatomyremains suboptimally visualized. No anomalies commonly detected byultrasound were identified within the limits of ultrasound. 3. Growth parameters and estimated weight were at the 95th% forgestational age. 4. The amniotic fluid volume appeared normal. us Dunia RIOS [facility] US ORDERABLES Edited Res ult - Final * [facility] US Comprehensive Single (11/18/2023 12:46 [...] ? Study Date: ??11/18/2023 11:42am Pat. NO: ??[id number] ?Referring ??MD: GERDA LIU Site: ? Squirt Machine Operator: Gini Joiner : ??1990 ?Age: ?? 33 ----- INDICATION [...] lb 4 ?oz EFW by ? Hadlock ([id number]-[id number]-PY-FL) Head / Face / Neck Biometry: Engineering Group Leader ?5.4 ? mm CM ? 9.8 ? mm Nasal bone ? 12.8 ?mm ANATOMY ----- The following structures appear normal: Head / Neck ? Cranium. Head size. Head shape. Lateral ventricles. Choroid plexus. Midline falx. Cavum septi pellucidi. Cerebellum. Cisterna magna. ? Parenchyma. Thalami. Vermis. ? Neck. Face ? Lips. Nose. Orbits. Lens. Heart / Thorax ?4-chamber view. LVOT view. 3- vessel view. 5-vsgxfe-htncosb view. Situs. Aortic arch view. Bicaval view. [...] record, and communicating with other health child caregiver private home and/or care coordination. Procedure Note Dunia Salas MD - 11/18/2023 Comprehensive ----- Pat. Name: ORLANDO VARGAS Study Date: 11/18/2023 11:42am Pat. NO: [id number] Referring MD: GERDA LIU Site: Squirt Machine Operator: Gini Joiner RDMS : 1990 Age: [...] EFW (lb,oz) 5 lb 4oz EFW by Hadlock([id number]-[id number]-FL) Head / Face / Neck Biometry: Engineering Group Leader 5.4mm CM 9.8mm Nasal bone 12.8mm ANATOMY ----- The following structures appear normal: Head / Neck Cranium. Head size. Head shape.Lateral ventricles. Choroid plexus. Midline falx. Cavum septi pellucidi.Cerebellum. Cisterna magna. Parenchyma. Thalami. Vermis. Neck. Face Lips. Nose. Orbits. Lens. Heart / Thorax 4-chamber view. LVOT view. 3-vesselview. 1-glaimb-ergrvnb view. Situs. Aortic arch view. Bicaval view.Superior [...] medical record, andcommunicating with other health child caregiver private home and/or carecoordination. IMPRESSION ----- 1. Mcclellan at [...] 5. The amniotic fluid volume appeared normal. Gerda Liu APRN [facility] ORDERABLES Edit ed Result - Final from Last [address] [facility] OUT OF STATE BCBS OUT OF STATE Care Teams Eap Clinician Relationship Specialty Start Date End Date Gerda Liu APRN CNM [address] [address] PCP - General 11/17/23 Jannet Marmolejo MD [address] [place] [address] Assigned OBGYN Provider 12/28/23
--- OUTSIDE RECORDS SUMMARY | 2024-02-12 11:52 | XMS_ITS | Clinical Summary ---
Author Organization [facility] Address [place], [place] [address] Care Team Providers Care Utility Service Worker Name Role Phone Unavailable Primary Care Provider [...] Comments Blood Pressure 117/75 03/24/2019 8:25 AM ROOFING LABORER Pulse 80 03/24/2019 8:25 AM ROOFING LABORER Temperature 36.7 ??C (98 ??F) 03/24/2019 8:25 AM ROOFING LABORER Respiratory Rate - - Oxygen Saturation 98% 03/24/2019 8:25 AM ROOFING LABORER Inhaled Oxygen Concentration - - Weight 64.5 kg (142 lb 3.2 oz) 03/24/2019 8:25 A M ROOFING LABORER Height 165.1 cm (5' 5) 03/24/2019 8:25 AM ROOFING LABORER Body Mass Index 23.66 03/24/2019 8:25 AM ROOFING LABORER Plan of Treatment Health Maintenance Due Date [...] Procedure Name Priority Date/Time Associated Diagnosis Comments EXHAUST EMISSIONS INSPECTOR THIN PREP PAP SCREEN IMAGED Routine 08/02/2019 4:15 PM CDT from Last 3 Months or Most Recently Relevant to Health Maintenance Results * EXHAUST EMISSIONS INSPECTOR THIN PREP PAP SCREEN IMAGED (08/02/2019 4:15 PM CDT) Case Report Gynecologic Cytology Report ? Case: [id number] ? Authorizing Provider: ??Laura Montez PA-C ?Collected: ? 08/02/2019 1615 ? Ordering Location: ? [facility] ?Received: ?08/04/2019 0849 ? First Screen: ?Romina Baxter ? Specimen: ?EXHAUST EMISSIONS INSPECTOR ThinPrep Vial Screening, Cervical/Vaginal ? 08/04/2019 5:55 PM CDT [facility] INTERPRETATION/ RESULT NEGATIVE FOR INTRAEPITHELIAL LESION OR MALIGNANCY (NIL) (none) 08/04/2019 5:55 PM CDT [facility] IMEN ADEQUACY Satisfactory for evaluation No endocervical component seen in a patient Excessive cytolysis/autolys is 08/04/2019 5:55 PM CDT [facility] HPV REQUEST HPV if ASCUS 08/04/2019 5:55 PM CDT [facility] Date of LMP 06/06/2019 08/04/2019 5:55 PM CDT [facility] Last Pap Result 0 5:55 PM CDT [facility] Comment:neg Menstrual Status 08/04/2019 5:55 PM CDT [facility] Additional Information 08/04/2019 5:55 PM CDT [facility] Comment: Interpreted at [facility] - [address], [place] [address] Automated Review Successful 08/04/2019 5:55 PM CDT [facility] Comment:Specimen processed s uccessfully by automated cultural centre manager device, ThinPrep Imaging System, [employer] Note The pap test is a [...] and malignant lesions. 08/04/2019 5:55 PM CDT [facility] Other (Cervical/Vagina l) 08/02/2019 4:15 PM CDT 08/04/2019 8:49 AM CDT July Melida WAN PATHOLOGY/CYTOLOGY [facility] [address] [place] [address], [place] from Last 3 Months or Most Recently Relevant to Health Maintenance [address] [place] [address]
--- OUTSIDE RECORDS SUMMARY | 2024-02-12 11:52 | XMS_ITS | Encounter Summary ---
Author Organization [facility] Address [address] [facility] [place] [address] Care Team Providers Care Weekday Babysitter Name Role Phone Jeri Liu APRN [facility] Primary Care Provider [phone]- [phone] Reason for Visit * Diagnostic Imaging Ultrasound (Routine) - Pending Review Specialty Diagnoses / Procedures Referred By Jef t Referred To Contact Radiology. Diagnoses related condition, antepartum Procedures [facility] US Comprehensive Single Jeri Liu APRN CNM [facility] [address] [place] [address] Phone: tel: fax: Referral ID Status Reason Start Date Expiration Date V isits Requested Visits Authorized [id number] Pending Review 11/17/2023 11/16/2024 1 1 Encounter Details Date Type Department Care Team (Latest Contact Info) Description 11/18/2023 11:33 AM CDT - 11/18/2023 11:59 PM CDT Hospital Encounter [facility] [place] [address] [place] [address] Dunia Salas MD [address] [facility] [address] [place] [address] Discharge Disposition: Home or Self Care Social History Tobacco Use Types Packs/Day Years Used Date Smoking Tobacco: Never Assessed Estimated Date of Delivery Comme nts Yes 01/10/2024 Based on last me nstrual period of 04/05/2023 Sex and Gender Information Value Date Recorded Sex Assigned at Not on file 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 Study Date: ??11/18/2023 11:42am Pat. NO: ??[id number] ?Referring ??MD: JERI LIU Site: ? Thread Roller: Gini Joiner RDMS : ??1990 ?Age: ?? [...] lb 4 ?oz EFW by ? Gregg ([id number]) Head / Face / Neck Biometry: Brass Molder ?5.4 ? mm CM ? 9.8 ? mm Nasal bone ? 12.8 ?mm ANATOMY ----- The following structures appear normal: Head / Neck ? Cranium. Head size. Head shape. Lateral ventricles. Choroid plexus. Midline falx. Cavum septi pellucidi. Cerebellum. Cisterna magna. ? Parenchyma. Thalami. Vermis. ? Neck. Face ? Lips. Nose. Orbits. Lens. Heart / Thorax ?4-chamber view. LVOT view. 3- vessel view. 8-fxlwpq-cagzbur view. Situs. Aortic arch view. Bicaval view. [...] medical record, and communicating with other health transition of care specialist and/or care coordination. Procedure Note Dunia Salas MD - 11/18/2023 Comprehensive ----- Pat. Name: ORLANDO VARGAS Study Date: 11/18/2023 11:42am Pat. NO: [id number] Referring MD: JERI LIU Site: Thread Roller: Gini Joiner RDMS : 1990 Age: 33 [...] EFW (lb,oz) 5 lb 4oz EFW by Hadlock([id number]) Head / Face / Neck Biometry: Brass Molder 5.4mm CM 9.8mm Nasal bone 12.8mm ANATOMY ----- The following structures appear normal: Head / Neck Cranium. Head size. Head shape.Lateral ventricles. Choroid plexus. Midline falx. Cavum septi pellucidi.Cerebellum. Cisterna magna. Parenchyma. Thalami. Vermis. Neck. Face Lips. Nose. Orbits. Lens. Heart / Thorax 4-chamber view. LVOT view. 3-vesselview. 7-cumscl-zgjactf view. Situs. Aortic arch view. Bicaval view.Superior [...] electronic medical record, andcommunicating with other health transition of care specialist and/or carecoordination. IMPRESSION ----- 1. Mcclellan at [...] volume appeared normal. Jeri Liu APRN, CNM [facility] ORDERABLES Edit ed Result - Final documented in this encounter Visit Diagnoses Not on filedocumented in this encounter Care Teams Weekday Babysitter Relationship Specialty Start Date End Date Jeri Liu APRN CNM [address] [address] PCP - General 11/17/23 documented as of this encounter
--- OUTSIDE RECORDS SUMMARY | 2024-02-12 11:52 | XMS_ITS | Encounter Summary ---
Author Organization [place] Address [address] [place] [address]. [place] [address] Care Team Providers Care Pressure Supervisor Name Role Phone Jeri Liu APRN, CNM Primary Care Provider +1- [phone] Reason for Referral * Diagnostic Imaging Ultrasound (Routine) - Pending Review Specialty Diagnoses / Procedures Referred By Jef herrmann Referred To Contact Radiology. Diagnoses related condition, antepartum Procedures [facility] US Comprehensive Single Jeri Liu APRN CNM [facility] [address] [place] [address] Phone: tel: fax: Referral ID Status Reason Start Date Expiration Date V isits Requested Visits Authorized [id number] Pending Review 11/17/2023 11/16/2024 1 1 * Consultation (Routine: Next available opening) - Pending Review Specialty Diagnoses / Procedures Referred By Jef herrmann Referred To Contact Diagnoses related condition, antepartum Jeri Liu APRN CNM [facility] [address] [place] [address] Phone: tel: fax: [facility] [place] [address] [facility] [address] [place] [address] Phone: tel: fax: Referral ID Status Reason Start Date Expiration Date V isits Requested Visits Authorized [id number] Pending Review 11/17/2023 11/16/2024 1 1 Question Answer Preferred Location: [facility] - [place] LUCY 01/10/2024 Ultrasound Comprehensive US (>than 18 weeks GA) US PROC NONE MFM Issue OTHER (enter details in Comments) - increased CSF w/in posterior fossa MFM MD Consultation (unrelated to Ultrasound findings): Yes Inflammatory Bowel Disease Clinic: Joint MFM and GI Consultation: No Chronic Kidney Disease: Joint MFM and Nephrology Consultation No Cardio-Obstetrics: Joint MFM and Cardiology Consultation No fax [facility] - Jeri Liu - Additional Information: no [...] (Latest Contact Info) Description 11/17/[address] 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 Study Date: ??11/18/2023 11:42am Pat. NO: ??[id number] ?Referring ??: JERI LIU Site: ? Director Geophysical Laboratory: Gini Joiner RDMS : ??1990 ?Age: ?? [...] lb 4 ?oz EFW by ? Hadlock ([id number]-FL) Head / Face / Neck Biometry: Therapist Respiratory ?5.4 ? mm CM ? 9.8 ? mm Nasal bone ? 12.8 ?mm ANATOMY ----- The following structures appear normal: Head / Neck ? Cranium. Head size. Head shape. Lateral ventricles. Choroid plexus. Midline falx. Cavum septi pellucidi. Cerebellum. Cisterna magna. ? Parenchyma. Thalami. Vermis. ? Neck. Face ? Lips. Nose. Orbits. Lens. Heart / Thorax ?4-chamber view. LVOT view. 3- vessel view. 4-jyqmhq-qqdcxod view. Situs. Aortic arch view. Bicaval view. [...] and communicating with other health critical care physician and/or care coordination. Procedure Note Dunia Salas MD - 11/18/2023 Comprehensive ----- Pat. Name: ORLANDO VARGAS Study Date: 11/18/2023 11:42am Pat. NO: [id number] Referring MD: JERI LIU Site: Director Geophysical Laboratory: Gini Joiner RDMS : 1990 Age: 33 [...] EFW (lb,oz) 5 lb 4oz EFW by Hadlock([id number]) Head / Face / Neck Biometry: Therapist Respiratory 5.4mm CM 9.8mm Nasal bone 12.8mm ANATOMY ----- The following structures appear normal: Head / Neck Cranium. Head size. Head shape.Lateral ventricles. Choroid plexus. Midline falx. Cavum septi pellucidi.Cerebellum. Cisterna magna. Parenchyma. Thalami. Vermis. Neck. Face Lips. Nose. Orbits. Lens. Heart / Thorax 4-chamber view. LVOT view. 3-vesselview. 5-vqydsw-puhyuwg view. Situs. Aortic arch view. Bicaval view.Superior [...] record, andcommunicating with other health critical care physician and/or carecoordination. IMPRESSION ----- 1. Mcclellan at [...] appeared normal. Jeri Liu APRN, CNM [facility] ORDERABLES Edit ed Result - Final documented in this encounter Visit Diagnoses Diagnosis related condition, antepartum- Primary documented in this encounter Care Teams Pressure Supervisor Relationship Specialty Start Date End Date Jeri Liu APRN CNM [facility] [address] [place] [address] PCP - General 11/17/23 documented as of this encounter
--- OUTSIDE RECORDS SUMMARY | 2024-02-12 11:52 | XMS_ITS | Encounter Summary ---
Author Organization [facility] Address [address] [place] [address]. 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
--- OUTSIDE RECORDS SUMMARY | 2024-02-12 11:52 | XMS_ITS | Encounter Summary ---
Author Organization [facility] Address [address] [place] [address]. 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
--- OUTSIDE RECORDS SUMMARY | 2024-02-12 11:52 | XMS_ITS | Encounter Summary ---
Author Organization [facility] Address [address] [place] [address] Care Team Providers Care Chha Name Role Phone ManeGerda bryan [facility]IA [facility] Primary Care Provider [phone]- [phone] Reason for Visit * Reason Comments Ultrasound [id number] Encounter Details Date Type Department Care Team (Late st Contact Info) Description 12/09/2023 10:45 AM CDT Office Visit [facility] [place] [address] [facility] [address] [place] [address] Jannet Marmolejo MD [address] [facility] [address] [place] [address] related condition, antepartum (Primary Dx); macrosomia during in third trimester, single or unspecified fetus Social History Tobacco Use Types Packs/Day Years Used Date Smoking Tobacco: Never Assessed Estimated Date of Delivery Comme nts Yes 01/10/2024 Based on last me nstrual period of 04/05/2023 Sex and Gender Information Value Date Recorded Sex Assigned at Not on file Legal Sex Female 4:55 AM SUPERVISOR MILL Gender Identity Not on file Sexual Orientation Not on file documented as of this encounter Progress Notes * Jannet Marmolejo MD - 12/09/2023 10:45 AM CDT The patient was seen for an ultrasound in the Maternal- Medicine Center at the [facility] today. For a detailed report of the ultrasound examination, please see the ultrasound report which can be found under the imaging tab. If you have questions regarding today's evaluation or if we can be of further service, please contact the Maternal- Medicine Center. Jannet Marmolejo MD Scow Derrick Operator, CONSULTING PRACTICE MANAGER Maternal- Medicine [phone] (Pager) documented in this encounter Nursing Notes [...] fetus documented in this encounter Care Teams Chha Relationship Specialty Start Date End Date Gerda Liu APRN CNM [facility] [address] [place] [address] PCP - General 11/17/23 documented as of this encounter
--- OUTSIDE RECORDS SUMMARY | 2024-02-12 11:52 | XMS_ITS | Encounter Summary ---
Author Organization [facility] Address [address] [place] [address]. [place] [address] Care Team Providers Care Preschool Teacher Name Role Phone Gerda Liu APRN, CNM Primary Care Provider +1- [phone] Reason for Visit * Reason Comments Ultrasound L2- Increased CSF wi thin posterior fossa, MCI Encounter Details Date Type Department Care Team (Late st Contact Info) Description 11/17/2023 PRE VISIT [facility] [place] [address] [facility] [address] [place] [address] Cecy Bedoya RN Ultrasound (L2- Increased CSF within posterior fossa, MCI) Social History Tobacco Use Types Packs/Day Years Used Date Smoking Tobacco: Never Assessed Estimated Date of Delivery Comme nts Yes 01/10/2024 Based on last me nstrual period of 04/05/2023 Sex and Gender Information Value Date Recorded Sex Assigned at Not on file Legal Sex Female 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
--- OUTSIDE RECORDS SUMMARY | 2024-02-12 11:52 | XMS_ITS | Referral Summary ---
Author Organization [place] Address [address] [place] [address]. [place] [address] Care Team Providers Care Jewelry Manager Name Role Phone Maneirvin Gerda ANNAMARIA KAY Primary Care Provider +1- [phone] Jannet Marmolejo MD Unavailable [phone] Encounters Date Type Department Care Team Description 12/09/2023 Travel 12/09/2023 10:45 AM CDT Office Visit [facility] Medicine [facility] [address] [facility] [address] [place] [address] Jannet Marmolejo MD related condition, antepartum (Primary Dx); macrosomia during in third trimester, single or unspecified fetus 12/09/2023 10:11 AM CDT - 12/09/2023 11:59 PM CDT Hospital Encounter [facility] Maternal Medicine [facility] [address] [facility] [address] [place] [phone] Jannet Marmolejo MD Encounter for follow-up ultrasound of anatomy Discharge Disposition: Home or Self Care 11/18/2023 Travel 11/18/2023 12:15 PM CDT Office Visit [facility] Medicine [facility] [address] [facility] [address] [place] [address] Dunia Salas MD Encounter for follow-up ultrasound of anatomy (Primary Dx); related condition, antepartum 11/18/2023 11:33 AM CDT - 11/18/2023 11:59 PM CDT Hospital Encounter [facility] Maternal Medicine [facility] [address] [facility] [address] [place] [address] Dunia Salas MD Discharge Disposition: Home or Self Care 11/17/2023 Medical Correspondence [facility] [address] [place] [address] Scan, Non-Provider 11/17/2023 PRE VISIT [facility] Medicine [place] [address] [facility] [address] [place] [address] Cecy Bedoya RN Ultrasound (L2- Increased CSF within posterior fossa, MCI) 11/17/2023 Transcribe Orders [facility] Medicine [place] [address] [facility] [address] [place] [address] Gerda Liu APRN CNM related condition, antepartum [...] on file 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 Study Date: ??12/09/2023 10:19am Pat. NO: ??[id number] ?Referring ??: GERDA LIU Site: ? Family Law Attorney: Gini Joiner RDMS : ??1990 ?Age: ?? [...] lb 3 ?oz EFW by ? Hadlock ([id number]) Head / Face / Neck Biometry: Camp Tender ?5.3 ? mm CM ? 8.4 ? mm ANATOMY ----- The following structures appear normal: Head / Neck ? Cranium. Head size. Head shape. Lateral ventricles. Midline falx. Cavum septi pellucidi. Cerebellum. Cisterna magna. Thalami. Face ? Lips. Nose. Heart / Thorax ?4-chamber view. RVOT view. LVOT view. 9-yknxma-vlqezaa view. ? Diaphragm. Abdomen ? Stomach. Kidneys. [...] and communicating with other health health care marketing specialist and/or care coordination. Procedure Note Jannet Marmolejo MD - 12/09/2023 Comp Follow Up ----- Pat. Name: ORLANDO VARGAS Study Date: 12/09/2023 10:19am Pat. NO: [id number] Referring MD: GERDA LIU Site: Family Law Attorney: Gini Joiner RDMS : 1990 Age: 33 [...] EFW (lb,oz) 7 lb 3oz EFW by Hadlock([id number]) Head / Face / Neck Biometry: Camp Tender 5.3mm CM 8.4mm ANATOMY ----- The following structures appear normal: Head / Neck Cranium. Head size. Head shape.Lateral ventricles. Midline falx. Cavum septi pellucidi. Cerebellum.Cisterna magna. Thalami. Face Lips. Nose. Heart / Thorax 4-chamber view. RVOT view. LVOT view.8-zsosls-ablkdtz view. Diaphragm. Abdomen Stomach. Kidneys. Bladder. Spine [...] and 8lb 9oz babies. Her was also [id number]. This baby feels bigger to her than [...] record, andcommunicating with other health health care marketing specialist and/or carecoordination. IMPRESSION ----- 1. Mcclellan at 35w 3d gestational age. 2. Due to advanced gestational age and positive some anatomyremains suboptimally visualized. No anomalies commonly detected byultrasound were identified within the limits of ultrasound. 3. Growth parameters and estimated weight were at the 95th% forgestational age. 4. The amniotic fluid volume appeared normal. us Dunia Salas MD Ovi [facility] US ORDERABLES Edited Res ult - Final * [facility] US Comprehensive Single (11/18/2023 [...] ? Study Date: ??11/18/2023 11:42am Pat. NO: ??[id number] ?Referring ??MD: GERDA LIU Site: ? Family Law Attorney: Gini Joiner RDMS : ??1990 ?Age: ?? [...] lb 4 ?oz EFW by ? Hadlock ([id number]) Head / Face / Neck Biometry: Camp Tender ?5.4 ? mm CM ? 9.8 ? mm Nasal bone ? 12.8 ?mm ANATOMY ----- The following structures appear normal: Head / Neck ? Cranium. Head size. Head shape. Lateral ventricles. Choroid plexus. Midline falx. Cavum septi pellucidi. Cerebellum. Cisterna magna. ? Parenchyma. Thalami. Vermis. ? Neck. Face ? Lips. Nose. Orbits. Lens. Heart / Thorax ?4-chamber view. LVOT view. 3- vessel view. 3-oiqxuv-obapryt view. Situs. Aortic arch view. Bicaval view. [...] and communicating with other health health care marketing specialist and/or care coordination. Procedure Note Dunia Salas MD - 11/18/2023 Comprehensive ----- Pat. Name: ORLANDO VARGAS Study Date: 11/18/2023 11:42am Pat. NO: [id number] Referring MD: GERDA LIU Site: Family Law Attorney: Gini Joiner RDMS : 1990 Age: 33 ----- INDICATION ----- Enlarged cisterna magna and marginal cord insertion on outsideultrasound. METHOD ----- Transabdominal ultrasound examination. View: Suboptimal view: limited bylate gestational age. Suboptimal view: limited by position ----- Mcclellan . Number of fetuses: 1 DATING ----- DateDetailsGest. age LUCY LMP w + 3 d 01/10/2024 U/S 4based upon AC, BPD, Femur, HC33 w + [...] EFW (lb,oz) 5 lb 4oz EFW by Gregg([id number]) Head / Face / Neck Biometry: Camp Tender 5.4mm CM 9.8mm Nasal bone 12.8mm ANATOMY ----- The following structures appear normal: Head / Neck Cranium. Head size. Head shape.Lateral ventricles. Choroid plexus. Midline falx. Cavum septi pellucidi.Cerebellum. Cisterna magna. Parenchyma. Thalami. Vermis. Neck. Face Lips. Nose. Orbits. Lens. Heart / Thorax 4-chamber view. LVOT view. 3-vesselview. 8-qkulxy-ebtabeo view. Situs. Aortic arch view. Bicaval view.Superior [...] record, andcommunicating with other health health care marketing specialist and/or carecoordination. IMPRESSION ----- 1. Mcclellan [...] amniotic fluid volume appeared normal. Gerda Liu APRN, CNM [facility] US ORDERABLES Edit ed Result - Final from Last 3 Months Insurance BCBS OUT OF STATE BCBS OUT OF STATE Care Teams Jewelry Manager Relationship Specialty Start Date End Date Gerda Liu APRN CNM [address] [address] PCP - General 11/17/23 Jannet Marmolejo MD [address] [address] Assigned OBGYN Provider 12/28/23
--- OUTSIDE RECORDS SUMMARY | 2024-02-12 11:52 | XMS_ITS | Encounter Summary ---
Author Organization [place] Address [facility] [facility] [place] [address] Care Team Providers Care Secondary Connector Armature Name Role Phone Gerda Liu APRN, CNM Primary Care Provider [phone]- [phone] Encounter Details Date Type Department Care Team (Late st Contact Info) Description 11/17/2023 Medical Correspondence [facility] Mg[facility] [address] [place] [address] Scan, Non-Provider Social History Tobacco Use Types Packs/Day Years Used Date Smoking Tobacco: Never Assessed Estimated Date of Delivery Comme nts Yes 01/10/2024 Based on last me nstrual period of 04/05/2023 Sex and Gender Information Value Date Recorded Sex Assigned at Not on file 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
--- OUTSIDE RECORDS SUMMARY | 2024-02-12 11:52 | XMS_ITS | Encounter Summary ---
Author Organization [facility] [place] Address [address] [place] [address]. [place] [address] Care Team Providers Care Production Consultant Name Role Phone Unavailable Primary Care Provider Unavailabl e Encounter Details Date Type Department Care Team (Late st Contact Info) Description 05/28/2008 4:15 PM [facility] in [facility] [address] [place] [address] Bunny Hernández MD [address] [place], [place] [address] Social History Tobacco Use Types Packs/Day Years Used Date Smoking Tobacco: Never Assessed Estimated Date of Delivery Comme nts Yes 01/10/2024 Based on last me nstrual period of 04/05/2023 Sex and Gender Information Value Date Recorded Sex Assigned at Not on file 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
[2024-02-15 16:34] LABS: HPV Source Cervix; HPV, High Risk by TMA Not Detected
== END 2024-02-12 11:47 | disposition home or self-care (01) ==
PROVIDERS: Visit Provider Advanced Practice Midwife
DX: Z39.2 Encounter for routine postpartum follow-up (principal); Z12.4 Encounter for screening for malignant neoplasm of cervix; Z11.51 Encounter for screening for human papillomavirus (HPV)
CPT/HCPCS: 87624; 87625; 88141; 88142

== ENCOUNTER 2024-11-17 11:04 | Outpatient (CLI) | payer BC, SELFPAY | END 2024-11-17 11:05 | disposition home or self-care (01) | PROVIDERS: Visit Provider Advanced Practice Midwife | DX: N92.0 Excessive and frequent menstruation with regular cycle (principal); Z86.32 Personal history of gestational diabetes; Z13.6 Encounter for screening for cardiovascular disorders | CPT/HCPCS: 80053; 80061; 84443 ==